=== PATIENT | female | born 1940 ===

== ENCOUNTER 2018-06-18 11:33 | Emergency (ER) | payer MEDICARE, MEDICAID ==
[2018-06-18 11:42] VITALS: RESP 16
[2018-06-18 11:43] VITALS: BMI 30.5
[2018-06-18] MEDS ORDERED: Oxycodone/Acetaminophen 5/325 mg Tab PO STA (12:13)
[2018-06-18] MEDS ORDERED: Oxycodone/Acetaminophen 5/325 mg Tab ONE (12:34)
--- NOTE | 2018-06-18 12:38 | ED PDOC ---
Lower Extremity Pain/Injury Time Seen by Provider: 06/18/18 11:57 Chief Complaint (Nursing): Lower Extremity Problem/Injury Chief Complaint (Provider): Right Leg Pain History Per: Patient History/Exam Limitations: no limitations Onset/Duration Of Symptoms: Days (x3) Current Symptoms Are (Timing): Still Present Severity: None Additional Complaint(s): 77 year old female with a past medical history of rheumatoid arthritis and hypertension presents to the emergency department complaining of right leg pain x3 days. Patient states that most of the pain is felt in the right ankle but she also notes some intermittent pain in the right calf. She also reports that the right ankle has been swollen and pain. Denies chest pain, leg/calf swelling , fever Of note: Patient states that she carries alot of heavy items and has been on her feet alot as of lately. PMD: Dr. Tavarez (Clinic ) - Risk Factors DVT Risk Factors: Pos: None Past Medical History Reviewed: Historical Data, Nursing Documentation, Vital Signs Vital Signs: Last Vital Signs Temp 97.6 F 06/18/18 11:41 Pulse 82 06/18/18 11:41 Resp 16 06/18/18 11:41 BP 172/73 H 06/18/18 11:41 Pulse Ox 98 06/18/18 11:41 - Medical History PMH: Arthritis (rheumatoid), HTN, Osteoporosis - Surgical History Surgical History: Appendectomy - Family History Family History: States: No Known Family Hx - Social History Current smoker - smoking cessation education provided: No Alcohol: None Drugs: Denies - Home Medications Home Medications: Ambulatory Orders Medication Instructions Recorded Aspirin [Ecotrin] 81 mg PO DAILY 03/19/16 Atenolol [Tenormin] 50 mg PO DAILY 03/19/16 Azathioprine [Azathioprine] 50 mg PO DAILY 03/19/16 Celecoxib [celeBREX] 200 mg PO BID 03/19/16 Cholecalciferol [Vitamin D 1000 IU] 1,000 unit PO DAILY 03/19/16 Exemestane [Aromasin] 25 mg PO DAILY 03/19/16 Folic Acid [Folic Acid] 400 mcg PO DAILY 03/19/16 Hydrochlorothiazide [HCTZ] 25 mg PO DAILY 03/19/16 Hydroxychloroquine Sulfate 200 mg PO BID 03/19/16 [Plaquenil] Ibandronate Sodium [Boniva] 150 mg PO Q30D 03/19/16 Multivitamin/Iron/Folic Acid 1 tab PO DAILY 03/19/16 [Centrum Complete Multivit Tab] - Allergies Allergies/Adverse Reactions: Allergies Allergy/AdvReac Type Severity Reaction Status Date / Time No Known Allergies Allergy Verified 03/19/16 14:31 Review of Systems ROS Statement: Except As Marked, All Systems Reviewed And Found Negative Constitutional: Negative for: Fever, Chills Cardiovascular: Negative for: Chest Pain Respiratory: Negative for: Cough Musculoskeletal: Positive for: Leg Pain (right ). Negative for: Foot Pain Physical Exam - Reviewed Nursing Documentation Reviewed: Yes Vital Signs Reviewed: Yes - Physical Exam Appears: Positive for: Non-toxic, No Acute Distress Head Exam: Positive for: ATRAUMATIC, NORMAL INSPECTION, NORMOCEPHALIC Skin: Positive for: Normal Color, Warm, Dry. Negative for: Rash Eye Exam: Positive for: Normal appearance, EOMI, PERRL ENT: Positive for: Normal ENT Inspection. Negative for: Nasal Congestion, Tonsillar Exudate, Tonsillar Swelling Neck: Positive for: Normal, Painless ROM, Supple Cardiovascular/Chest: Positive for: Regular Rate, Rhythm, Chest Non Tender. Negative for: Murmur, Tachycardia Respiratory: Positive for: Normal Breath Sounds. Negative for: Rales, Rhonchi, Wheezing, Respiratory Distress Back: Positive for: Normal Inspection. Negative for: L CVA Tenderness, R CVA Tenderness, Vertebral Tenderness Extremity: Positive for: Normal ROM (Full ROM of right ankle), Tenderness (mild tenderness to right ankle), Calf Tenderness (No swelling or tenderness to right calf), Capillary Refill (less than 2 seconds), Swelling (mild swelling round right ankle), Other (Warm skin; no redness to right ankle or right calf). Negative for: Deformity Neurologic/Psych: Positive for: Alert, Oriented, Gait - Laboratory Results Result Diagrams: 06/18/18 13:19 06/18/18 13:19 - ECG O2 Sat by Pulse Oximetry: 98 (RA) Pulse Ox Interpretation: Normal - Progress Re-evaluation Time: 14:32 Condition: Re-examined, Improved Medical Decision Making Medical Decision Makin Initial Impression 77 year old female presenting with atraumatic right ankle and right leg pain Differentials: Arthritis, Less likely ghout but still considered, r/o DVT Initial Plan: * BMP * Uric Acid * CBC * ESR * Percocet 1 tab PO * Toradol 30 mg IM * RAD right ankle * US Duplex Lower EXTRM * Reevaluation 1335 06/18/2018 PROCEDURE: Right lower extremity venous duplex Doppler. HISTORY: right lower leg pain COMPARISON: None available. TECHNIQUE: Common femoral, superficial femoral, popliteal and posterior tibial veins were evaluated. Flow was assessed with color Doppler, compressibility, assessment of phasic flow and augmentation response. FINDINGS: COMMON FEMORAL VEIN: Unremarkable. SUPERFICIAL FEMORAL VEIN: Unremarkable. POPLITEAL VEIN: Unremarkable. POSTERIOR TIBIAL VEIN: Unremarkable. OTHER FINDINGS: None. IMPRESSION: No evidence of deep venous thrombosis in the right lower extremity. Documented by Taylor Berger acting as a scribe for Lyn Grace MD. All medical record entries made by the Scribe were at my direction and personally dictated by me. I have reviewed the chart and agree that the record accurately reflects my personal performance of the history, physical exam, medical decision making, and the department course for this patient. I have also personally directed, reviewed, and agree with the discharge instructions and disposition. Disposition - Clinical Impression Clinical Impression: Ankle pain, Arthritis - Patient ED Disposition Is Patient to be Admitted: No Doctor Will See Patient In The: Office Counseled Patient/Family Regarding: Studies Performed, Diagnosis, Need For Followup - Disposition Referrals: Podiatry Clinic [Outside] Disposition: Routine/Home Disposition Time: 14:33 Condition: GOOD Additional Instructions: Take your medications as instructed. Follow up with your PCP in 2-3 days. Instructions: Arthritis and Exercise
[2018-06-18 13:23] LABS: BASO % 0.9 % (0.0-2.0); EOS % 0.6 % (0.0-4.0); HEMOGLOBIN 13.5 g/dL (12.0-16.0); LYMPH # 0.4 K/uL (1.0-4.3); MEAN CELL VOLUME 94.8 fl (81.0-99.0); MEAN CORPUSCULAR HEMOGLOBIN 31.8 pg (27.0-31.0); MEAN CORPUSCULAR HGB CONC 33.5 g/dL (33.0-37.0); MEAN PLATELET VOLUME 10.9 fl (7.2-11.7); MONO # 0.2 K/uL (0.0-0.8); MONO % 3.2 % (0.0-10.0); NEUT # 4.3 K/uL (1.8-7.0); NEUT % 86.3 % (50.0-75.0); PLATELET COUNT 103 K/uL (130-400); RBC 4.25 Mil/uL (3.80-5.20); RED CELL DISTRIBUTION WIDTH 13.4 % (11.5-14.5)
[2018-06-18 13:34] LABS: BLOOD UREA NITROGEN 13 mg/dl (7-17); CALCIUM 9.9 mg/dL (8.4-10.2); GFR AFRICAN-AMERICAN > 60; GFR NON-AFRICAN AMERICAN > 60; URIC ACID 4.7 mg/Dl (2.2-7.5)
--- NOTE | 2018-06-18 13:36 | RAD ---
Date of service: 06/18/2018 PROCEDURE: Right Ankle Radiographs. HISTORY: right ankle pain no trauma COMPARISON: None FINDINGS: BONES: Diffuse osteopenia. No acute fracture. Old healed fracture of the distal tibia. JOINTS: Severe degenerative change SOFT TISSUES: Normal. OTHER FINDINGS: Achilles enthesophyte. Inferior plantar calcaneal spur. IMPRESSION: Diffuse osteopenia. No appreciable acute fracture. Severe ankle degenerative changes.
--- NOTE | 2018-06-18 13:37 | US ---
Date of service: 06/18/2018 PROCEDURE: Right lower extremity venous duplex Doppler. HISTORY: right lower leg pain COMPARISON: None available. TECHNIQUE: Common femoral, superficial femoral, popliteal and posterior tibial veins were evaluated. Flow was assessed with color Doppler, compressibility, assessment of phasic flow and augmentation response. FINDINGS: COMMON FEMORAL VEIN: Unremarkable. SUPERFICIAL FEMORAL VEIN: Unremarkable. POPLITEAL VEIN: Unremarkable. POSTERIOR TIBIAL VEIN: Unremarkable. OTHER FINDINGS: None. IMPRESSION: No evidence of deep venous thrombosis in the right lower extremity.
[2018-06-18 14:45] VITALS: BP 150/60; PULSE 74; TEMP 98.5
[2018-06-18 14:57] VITALS: O2SAT 98
[2018-06-18 15:10] LABS: BANDS 2 % (0-2); EOSINOPHIL 1 % (0-7); LYMPHOCYTE 12 % (20-50); MONOCYTE 3 % (0-10); NEUTROPHIL 82 % (42-75); PLATELET ESTIMATE NORMAL (NORMAL); TOTAL CELLS COUNTED 100
[2018-06-18 15:11] LABS: LARGE PLATELETS PRESENT
== END 2018-06-18 14:43 | disposition home or self-care (01) ==
LOC: H.ER 11:33
DX: M19.071 Primary osteoarthritis, right ankle and foot (principal); I10 Essential (primary) hypertension
CPT/HCPCS: 73610; 80048; 84550; 85025; 85651; 93971; 96372; 99284; J1885

== ENCOUNTER 2018-12-24 13:21 | Emergency (ER) | payer MEDICARE, MEDICAID ==
[2018-12-24 13:21] VITALS: BMI 30.5
[2018-12-24 13:30] VITALS: RESP 18
[2018-12-24] MEDS ORDERED: Sodium Chloride 0.9% 1,000 ML IV ONE ×2 (14:14→16:14)
--- NOTE | 2018-12-24 14:17 | ED PDOC ---
Syncope/Near Syncope/Dizziness Time Seen by Provider: 12/24/18 14:00 Chief Complaint (Nursing): Dizziness/Lightheaded Chief Complaint (Provider): Near Syncope History Per: Patient History/Exam Limitations: no limitations Onset/Duration Of Symptoms: Hrs (two) Current Symptoms Are (Timing): Gone Now Number Of Syncopal Episodes: 1 Activity At Onset Of Symptoms: Had Just Stood up Associated Symptoms Preceding Syncopal Episode: No Predromal Symptoms (Sudden Onset), Lightheadedness, Worse With Standing Seizure Or Post-ictal Symptoms: None Possible Causative Factor(s): Lightheaded W/Standing Severity: None (Pt presents to the ED after experiencing a single near syncopal episode while in [facility] today; specifically, the patient indicates that she had just stood up and got very diaphoretic and lightheaded causing her to need to sit down. Pt does have a hx that includes a TIA several years ago as well as breast ca.) Past Medical History Vital Signs: Last Vital Signs Temp 97 F L 12/24/18 13:26 Pulse 70 12/24/18 13:26 Resp 18 12/24/18 13:26 BP 129/70 12/24/18 13:26 Pulse Ox 98 12/24/18 13:26 - Medical History PMH: Arthritis (rheumatoid), HTN, Osteoporosis, Rheumatoid Arthritis - Surgical History Surgical History: Appendectomy - Family History Family History: States: Unknown Family Hx - Home Medications Home Medications: Ambulatory Orders Medication Instructions Recorded Aspirin [Ecotrin] 81 mg PO DAILY 03/19/16 Atenolol [Tenormin] 50 mg PO DAILY 03/19/16 Azathioprine 50 mg PO DAILY 03/19/16 Celecoxib [celeBREX] 200 mg PO BID 03/19/16 Cholecalciferol [Vitamin D 1000 IU] 1,000 unit PO DAILY 03/19/16 Exemestane [Aromasin] 25 mg PO DAILY 03/19/16 Folic Acid 400 mcg PO DAILY 03/19/16 Hydrochlorothiazide [HCTZ] 25 mg PO DAILY 03/19/16 Hydroxychloroquine Sulfate 200 mg PO BID 03/19/16 [Plaquenil] Ibandronate Sodium [Boniva] 150 mg PO Q30D 03/19/16 Multivitamin/Iron/Folic Acid 1 tab PO DAILY 03/19/16 [Centrum Complete Multivit Tab] Oseltamivir Phosphate [Tamiflu] 75 mg PO BID #10 capsule 12/24/18 - Allergies Allergies/Adverse Reactions: Allergies Allergy/AdvReac Type Severity Reaction Status Date / Time No Known Allergies Allergy Verified 12/24/18 13:29 Review of Systems ROS Statement: Except As Marked, All Systems Reviewed And Found Negative Constitutional: Positive for: Sweats Neurological: Positive for: Dizziness Physical Exam - Reviewed Nursing Documentation Reviewed: Yes Vital Signs Reviewed: Yes - Physical Exam Appears: Positive for: Well, Non-toxic, No Acute Distress, Uncomfortable Head Exam: Positive for: ATRAUMATIC, NORMAL INSPECTION Skin: Positive for: Normal Color, Warm, Dry. Negative for: Diaphoresis, Pallor, Rash Eye Exam: Positive for: Normal appearance ENT: Positive for: Normal ENT Inspection Neck: Positive for: Normal, Painless ROM, Supple. Negative for: Decreased ROM Cardiovascular/Chest: Positive for: Regular Rate, Rhythm Respiratory: Positive for: Normal Breath Sounds Pulses-Carotid (L): 2+ Pulses-Carotid (R): 2+ Pulses-Radial (L): 2+ Pulses-Radial (R): 2+ - Laboratory Results Result Diagrams: 12/24/18 14:42 12/24/18 14:42 - ECG ECG: Positive for: Interpreted By Me, Viewed By Me ECG Rhythm: Positive for: Normal QRS, Normal ST Segment, Sinus Rhythm Rate: 64 O2 Sat by Pulse Oximetry: 98 Medical Decision Making Medical Decision Making: Influenza Positive All other tests benign Mildly dehydrated Disposition - Clinical Impression Clinical Impression: Influenza, Dehydration - Patient ED Disposition Is Patient to be Admitted: No Doctor Will See Patient In The: Hospital Counseled Patient/Family Regarding: Diagnosis - Disposition Referrals: [facility] [Outside] Disposition: Routine/Home Disposition Time: 18:30 Condition: STABLE Prescriptions: Oseltamivir Phosphate [Tamiflu] 75 mg PO BID #10 capsule Instructions: Dehydration, Adult (DC), Flu, Adult (DC), Flu Forms: [employer] (Finnish)
[2018-12-24 14:53] LABS: BASO % 0.5 % (0.0-2.0); EOS # 0.1 K/uL (0.0-0.7); EOS % 1.2 % (0.0-4.0); HEMOGLOBIN 13.7 g/dL (12.0-16.0); LYMPH % 10.4 % (20.0-40.0); MEAN CELL VOLUME 95.8 fl (81.0-99.0); MEAN CORPUSCULAR HEMOGLOBIN 31.2 pg (27.0-31.0); MEAN CORPUSCULAR HGB CONC 32.6 g/dL (33.0-37.0); MEAN PLATELET VOLUME 11.2 fl (7.2-11.7); MONO # 0.6 K/uL (0.0-0.8); MONO % 6.9 % (0.0-10.0); NEUT # 7.5 K/uL (1.8-7.0); NRBC % 0.1 % (0.0-0.0); RBC 4.4 Mil/uL (3.80-5.20); RED CELL DISTRIBUTION WIDTH 13.6 % (11.5-14.5); WHITE BLOOD COUNT 9.3 K/uL (4.8-10.8)
[2018-12-24 15:07] LABS: ALB/GLOB RATIO 1.2 (1.0-2.1); ALBUMIN 3.5 g/dL (3.5-5.0); ALT/SGPT 33 U/L (9-52); AST/SGOT 27 U/L (14-36); BLOOD UREA NITROGEN 20 mg/dl (7-17); CALCIUM 9.7 mg/dL (8.4-10.2); GFR NON-AFRICAN AMERICAN > 60
--- NOTE | 2018-12-24 15:17 | CT ---
Date of service: 12/24/2018 PROCEDURE: CT HEAD WITHOUT CONTRAST. HISTORY: NEAR SYNCOPE COMPARISON: None available. TECHNIQUE: Axial computed tomography images were obtained through the head/brain without intravenous contrast. Radiation dose: Total exam DLP = 836.86 mGy-cm. This CT exam was performed using one or more of the following dose reduction techniques: Automated exposure control, adjustment of the mA and/or kV according to patient size, and/or use of iterative reconstruction technique. FINDINGS: HEMORRHAGE: No intracranial hemorrhage. BRAIN: No mass effect or edema. Chronic periventricular white matter ischemic disease and atrophy. VENTRICLES: Unremarkable. No hydrocephalus. CALVARIUM: Unremarkable. PARANASAL SINUSES: Unremarkable as visualized. No significant inflammatory changes. MASTOID AIR CELLS: Unremarkable as visualized. No inflammatory changes. OTHER FINDINGS: None. IMPRESSION: No acute hemorrhage.
[2018-12-24 15:25] LABS: SQUAMOUS EPITHIAL 1 /hpf (0-5); URINE BACTERIA RARE (<OCC); URINE BILIRUBIN NEGATIVE (NEGATIVE); URINE BLOOD NEGATIVE (NEGATIVE); URINE CLARITY CLOUDY (Clear); URINE GLUCOSE (UA) NEG (NEGATIVE); URINE HYALINE CAST >20 /hpf (0-2); URINE LEUKOCYTE ESTERASE SMALL Leu/uL (Negative); URINE PROTEIN 100 mg/dL (NEGATIVE)
[2018-12-24 15:31] LABS: URINE COLOR YELLOW (YELLOW)
[2018-12-24 18:39] VITALS: BP 174/89; PULSE 73; TEMP 98; O2SAT 99
--- NOTE | 2018-12-25 16:14 | CARD ---
APPROVED REPORT Date of service: 12/24/2018 EKG Measurement Heart [id number] <Conclusion> Normal sinus rhythm Normal ECG
== END 2018-12-24 18:37 | disposition home or self-care (01) ==
LOC: H.ER 13:21
DX: E86.0 Dehydration (principal); J11.1 Influenza due to unidentified influenza virus with other respiratory manifestations; I10 Essential (primary) hypertension
CPT/HCPCS: 70450; 80053; 81003; 82948; 84484; 85025; 87804; 93005; 96360; 96361; 99285; J7030

== ENCOUNTER 2019-01-24 15:57 | Inpatient (IN) | payer MEDICARE, MEDICAID ==
--- NOTE | 2019-01-24 17:46 | RAD ---
Date of service: 01/24/2019 PROCEDURE: Radiographs of the Lumbar Spine. HISTORY: fall/back pain COMPARISON: No prior. FINDINGS: BONES: Examination grossly limited and consists of only a single AP view. No lateral view submitted. No gross evidence of fracture. No evidence of loss in height of any of the lumbar vertebrae. No lytic or blastic osseous lesion appreciated. DISC SPACES: Inadequately evaluated OTHER FINDINGS: None. IMPRESSION: Normal limited examination.
--- NOTE | 2019-01-24 17:48 | RAD ---
PROCEDURE: Left Hip X-ray Radiographs. HISTORY: fall COMPARISON: None. FINDINGS: BONES: Displaced fracture mid femoral diaphysis. Please see report of left femur. No evidence of hip fracture. No dislocation. JOINTS: Normal. SOFT TISSUES: Normal. OTHER FINDINGS: None. IMPRESSION: Fracture left femoral diaphysis. No additional fracture
--- NOTE | 2019-01-24 17:49 | RAD ---
Date of service: 01/24/2019 PROCEDURE: Left femur HISTORY: fall/thigh swelling COMPARISON: Not available TECHNIQUE: AP radiography only. FINDINGS: Limited examination demonstrates oblique displaced fracture of the left femoral diaphysis at the junction of the proximal and middle thirds, with mild overriding of the main fragments. There is no evidence of comminution. There is no additional fracture demonstrated. There is note made of adjacent soft tissue swelling which may reflect muscular hemorrhage or ele hematoma. Consider further evaluation with computed tomography. No additional abnormality identified. IMPRESSION: Displaced left femoral diaphysis fracture. Questionable hematoma adjacent to the fracture site. Consider further evaluation with computed tomography.
[2019-01-24] MEDS ORDERED: Morphine 4 MG/ML VIAL IVP STA (18:06)
--- NOTE | 2019-01-24 18:15 | ED PDOC ---
Lower Extremity Pain/Injury Time Seen by Provider: 01/24/19 16:27 Chief Complaint (Nursing): Lower Extremity Problem/Injury Chief Complaint (Provider): FALL/ LEFT LEG PAIN History Per: Patient History/Exam Limitations: no limitations Onset/Duration Of Symptoms: Mins Current Symptoms Are (Timing): Still Present Severity: Severe Pain Scale Rating Of: 9 Additional History Per: Patient Additional Complaint(s): 78 Y/O FEMALE WITH HX OF HTN, RHEUMATOID ARTHRITIS AND LUPUS BROUGHT IN BY EMS ON STRETCHER AFTER PT HAD A SLIP AND FALL TRYING TO GET OUT OF THE BATH TUB. PT REPORTS SHE IS NOT SURE OF HOW SHE LANDED BUT REPORTS SHE ATTEMPTED TO GET UP ON HER OWN AND FELL AGAIN. PT DENIES HITTING HER HEAD. DENIES FEELING DIZZY PRIOR TO FALL AND DENIES LOC. DENIES HEAD INJURY. PT STATES SHE IS UNABLE TO APPLY WEIGHT TO LEFT LEG. PT DENIES FURTHER INJURIES OR PAIN. - Hip Description Of Injury: Fell Currently Unable To: Bear Weight - Risk Factors DVT Risk Factors: Pos: Extremity Fractured Past Medical History Vital Signs: Last Vital Signs Temp 99.1 F 01/24/19 16:00 Pulse 79 01/24/19 16:00 Resp 18 01/24/19 16:00 BP 181/77 H 01/24/19 16:00 Pulse Ox 98 01/24/19 16:00 - Medical History PMH: Arthritis (rheumatoid), HTN, Osteoporosis, Rheumatoid Arthritis - Surgical History Surgical History: Appendectomy - Family History Family History: States: Unknown Family Hx - Social History Alcohol: None Drugs: Denies - Home Medications Home Medications: Ambulatory Orders Medication Instructions Recorded Aspirin [Ecotrin] 81 mg PO DAILY 03/19/16 Atenolol [Tenormin] 50 mg PO DAILY 03/19/16 Celecoxib [celeBREX] 200 mg PO BID 03/19/16 Multivitamin/Iron/Folic Acid 1 tab PO DAILY 03/19/16 [Centrum Complete Multivit Tab] Acetaminophen with Codeine 2 tab PO Q12 PRN 01/24/19 [Tylenol with Codeine #3 Tablet] Atorvastatin [Lipitor] 10 mg PO DAILY 01/24/19 Calcium Carbonate [Caltrate] 1 tab PO DAILY 01/24/19 DULoxetine [Cymbalta] 30 mg PO Q12 PRN 01/24/19 Turmeric Root Extract [Turmeric] 500 mg PO DAILY 01/24/19 hydroCHLOROthiazide [Microzide] 12.5 mg PO DAILY 01/24/19 predniSONE [predniSONE Tab] 7.5 mg PO DAILY 01/24/19 - Allergies Allergies/Adverse Reactions: Allergies Allergy/AdvReac Type Severity Reaction Status Date / Time No Known Allergies Allergy Verified 12/24/18 13:29 Wells Criteria for PE - Wells Criteria for Pulmonary Embolism Clinical Signs and Symptoms of DVT: No P.E is #1 Diagnosis, or Equally Likely: No Heart Rate >100: No Immobilization at least 3 days;Surgery previous 4 weeks: No Previous, objectively diagnosed PE or DVT: No Hemoptysis: No Malignancy w/treatment within 6 months, or palliative: No Total Score: 0 Review of Systems Constitutional: Negative for: Fever, Sweats, Weakness, Malaise Cardiovascular: Negative for: Chest Pain, Palpitations Respiratory: Negative for: Shortness of Breath Musculoskeletal: Positive for: Leg Pain (LEFT THIGH PAIN ) Physical Exam - Reviewed Nursing Documentation Reviewed: Yes Vital Signs Reviewed: Yes - Physical Exam Appears: Positive for: Well, Non-toxic, No Acute Distress Head Exam: Positive for: ATRAUMATIC, NORMAL INSPECTION, NORMOCEPHALIC Skin: Positive for: Normal Color, Warm, DRY Eye Exam: Positive for: Normal appearance, PERRL ENT: Positive for: Normal ENT Inspection Neck: Positive for: Normal, Painless ROM Cardiovascular/Chest: Positive for: Regular Rate, Rhythm Respiratory: Positive for: CNT, Normal Breath Sounds Pulses-Dorsalis Pedis (L): 2+ Pulses-Dorsalis Pedis (R): 2+ Pulses-Radial (L): 2+ Pulses-Radial (R): 2+ Gastrointestinal/Abdominal: Positive for: Normal Exam, Soft Back: Positive for: Normal Inspection Extremity: Positive for: Normal ROM, Swelling (LEFT THIGH SWELLING, LEFT EXTERNAL ROTATION OF THE FOOT, POSS SHORTENING. COLOR WNL, TEMP OF LEFT LEG COOL SAME RIGHT. 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 GRACE, REVIEWED AND SIGNED. Rate: 79 O2 Sat by Pulse Oximetry: 98 Pulse Ox Interpretation: Normal - Radiology X-Ray: Read By Radiologist (LEFT DISPLACED FEMUR FX TO THE DIAPHYSIS. ) - Progress ED Course And Treament: CBC CMP TYPE AND SCREEN PT/INR/PTT SALINE LOCK XRAYS: LEFT FEMUR, LEFT HIP, LUMBAR SPINE, CHEST PORTABLE CT L LOWER EXT, LUMBAR SPINE TORADOL 60MG IM MORPHINE 4MG IV 1800: PT RE-EVALED AT THIS TIME, ADVISED OF XRAY RESULTS, FAMILY AT BEDSIDE. 1809: SPOKE TO DR. GARCIA TO NOTIFY OF ADMISSION TO MED/SURG, TO CALL [facility] ONCALL, FOR CONSULT 1814: DR. LIRA CALLED ON CONSULT FOR LEFT DISPLACED FEMUR FX, MD AWARE. Re-evaluation Time: 18:00 Condition: Re-examined Disposition - Clinical Impression Clinical Impression: Femur fracture Discussed With : Lyn Grace - Disposition Disposition Time: 18:00 Condition: FAIR - Pt Status Changed To: Hospital Disposition Of: Inpatient - Admit Certification Admit to Inpatient:: After my assessment, the patient will require hospitalization for at least two midnights. This is because of the severity of symptoms shown, intensity of services needed, and/or the medical risk in this patient being treated as an outpatient. - POA Present On Arrival: Falls Or Trauma (fall, left femur fx)
[2019-01-24 18:16] LABS: BASO # 0.1 K/uL (0.0-0.2); BASO % 0.5 % (0.0-2.0); EOS % 0.1 % (0.0-4.0); LYMPH # 1.5 K/uL (1.0-4.3); LYMPH % 11.8 % (20.0-40.0); MEAN CELL VOLUME 94.9 fl (81.0-99.0); MEAN CORPUSCULAR HEMOGLOBIN 30.9 pg (27.0-31.0); MEAN CORPUSCULAR HGB CONC 32.6 g/dL (33.0-37.0); MEAN PLATELET VOLUME 10.7 fl (7.2-11.7); MONO # 0.9 K/uL (0.0-0.8); MONO % 7.2 % (0.0-10.0); NEUT % 80.4 % (50.0-75.0); RBC 4.21 Mil/uL (3.80-5.20); RED CELL DISTRIBUTION WIDTH 13.2 % (11.5-14.5); WHITE BLOOD COUNT 12.4 K/uL (4.8-10.8)
[2019-01-24] MEDS ORDERED: Morphine 4 MG/ML VIAL ONE (18:23)
[2019-01-24 18:31] LABS: ALB/GLOB RATIO 1.3 (1.0-2.1); ALBUMIN 3.7 g/dL (3.5-5.0); ALT/SGPT 36 U/L (9-52); AST/SGOT 33 U/L (14-36); BLOOD UREA NITROGEN 33 mg/dl (7-17); CALCIUM 10.1 mg/dL (8.4-10.2); GFR NON-AFRICAN AMERICAN > 60
[2019-01-24 18:33] LABS: PROTHROMBIN TIME 11.5 Seconds (9.8-13.1)
[2019-01-24 18:41] LABS: PARTIAL THROMBOPLASTIN TIME 29.3 Seconds (25.6-37.1)
[2019-01-24] MEDS ORDERED: Acetaminophen-Codeine 300/30 mg Tab PO PRN (20:11)
--- NOTE | 2019-01-24 20:21 | CP.PCM.HP ---
History of Present Illness - History of Present Illness History of Present Illness: 78 y/o F with a PMHx HTN, HLD, ?SLE, seizures, R breast cancer and osteoporosis presented to ED after a falling in the shower, Pt explains slipping on wet floor after taking a shower, fell and landing with left leg in the bath tub and the right outside. Pt complains of left leg pain, dull, constant and aggravated with movement. Pt denies LOC, nausea, vomiting, visual disturbances, seizure-like episode, head trauma, chest pain, SOB, palpitations. 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 PMD: Dr George Tavarez -NKDA -Meds: Atenolol 50mg daily, HCTZ 12.5mg daily, Celebrex 200mg tab BID, Tylenol #3 2tabs PO BID, Aspirin 81mg PO daily, Lipitor 10mg PO daily, Duloxetine 30mg PO BID PRN, Oscal 500mg PO daily, -PMHx: HTN, HLD, Lupus, Osteoporosis, Hx of R Breast Ca, hx of seizures -PSH: Cholecystectomy, Right lumpectomy -SHx: denies tobacco, alcohol or rec drugs. ED Course: --XR L femur: Displaced left femoral diaphysis fracture. Questionable hematoma adjacent to the fracture site. --CT of LLE: displaced and angulated fracture involving the proximal mid L femur, soft tissue hematoma suspected. --XR and CT of lumbar spine: no fracture, see full report. --IV Toradol and IV Morphine administered. Present on Admission - Present on Admission Any Indicators Present on Admission: No Review of Systems - Constitutional Constitutional: absent: Chills, Fever - EENT Nose/Mouth/Throat: absent: Nasal Congestion, Nasal Discharge, Nose Pain, Facial Pain - Cardiovascular Cardiovascular: absent: Chest Pain, Dyspnea, Palpitations - Respiratory Respiratory: absent: Cough, Dyspnea, Hemoptysis, Wheezing - Gastrointestinal Gastrointestinal: absent: Abdominal Pain, Hematemesis, Nausea, Vomiting - Genitourinary Genitourinary: absent: Dysuria, Flank Pain, Nocturia, Urinary Frequency - Musculoskeletal Musculoskeletal: absent: Atrophy, Neck Pain, Stiffness, Tingling Past Patient History - Past Social History Alcohol: None Drugs: Denies - CARDIAC Hx Hypertension: Yes - HEENT Hx Cataracts: Yes - ENDOCRINE/METABOLIC Hx Endocrine Disorders: Yes (Lupus) - MUSCULOSKELETAL/RHEUMATOLOGICAL Hx Arthritis: Yes (rheumatoid) Hx Osteoporosis: Yes Hx Rheumatoid Arthritis: Yes - PSYCHIATRIC Hx Substance Use: No - SURGICAL HISTORY Hx Appendectomy: Yes - ANESTHESIA Hx Anesthesia: Yes Hx Anesthesia Reactions: No Meds Allergies/Adverse Reactions: Allergies Allergy/AdvReac Type Severity Reaction Status Date / Time No Known Allergies Allergy Verified 12/24/18 13:29 Physical Exam - Constitutional Appears: No Acute Distress - Head Exam Head Exam: ATRAUMATIC, NORMAL INSPECTION - Eye Exam Eye Exam: EOMI - ENT Exam ENT Exam: Mucous Membranes Moist - Neck Exam Neck exam: Positive for: Full Rom, Normal Inspection. Negative for: Lymphadenopathy, Tenderness - Respiratory Exam Respiratory Exam: NORMAL BREATHING PATTERN. absent: Rales, Rhonchi, Wheezes, Respiratory Distress - Cardiovascular Exam Cardiovascular Exam: REGULAR RHYTHM, +S1, +S2 - GI/Abdominal Exam GI & Abdominal Exam: Normal Bowel Sounds, Soft. absent: Distended, Guarding, Tenderness - Extremities Exam Extremities exam: Positive for: pedal pulses present. Negative for: calf tenderness Additional comments: Left lower extremity: lateral rotated and extended, tenderness on thigh, no calf tenderness, temperature is similar to RLE, SILT. Popliteal, PT and DP pulses present. Reduced ROM due to pain. - Neurological Exam Neurological exam: Alert, Oriented x3 Results - Vital Signs Recent Vital Signs: Last Vital Signs Temp 99.1 F 01/24/19 16:00 Pulse 79 01/24/19 18:42 Resp 18 01/24/19 16:00 BP 181/77 H 01/24/19 16:00 Pulse Ox 98 01/24/19 18:42 - Labs Result Diagrams: 01/24/19 18:00 01/24/19 18:00 Labs: Laboratory Results - last 24 hr 01/24/19 01/24/19 01/24/19 18:00 18:00 18:00 WBC 12.4 H RBC 4.21 Hgb 13.0 Hct 40.0 MCV 94.9 MCH 30.9 MCHC 32.6 L RDW 13.2 Plt Count 126 L MPV 10.7 Neut % (Auto) 80.4 H Lymph % (Auto) 11.[address] [place] % (Auto) 7.2 Eos % (Auto) 0.1 Baso % (Auto) 0.5 Neut # (Auto) 10.0 H Lymph # (Auto) 1.5 [place] # (Auto) 0.9 H Eos # (Auto) 0.0 Baso # (Auto) 0.1 PT 11.5 INR 1.0 APTT 29.3 Sodium 137 Potassium 4.7 Chloride 105 Carbon Dioxide 26 Anion Gap 11 BUN 33 H Creatinine 0.9 Est GFR ( Amer) > 60 Est GFR (Non-Af Amer) > 60 Random Glucose 131 H Calcium 10.1 Total Bilirubin 0.4 AST 33 ALT 36 Alkaline Phosphatase 78 Total Protein 6.5 Albumin 3.7 Globulin 2.9 Albumin/Globulin Ratio 1.3 Blood Type Antibody Screen BBK History Checked 01/24/19 18:00 WBC RBC Hgb Hct MCV MCH MCHC RDW Plt Count MPV Neut % (Auto) Lymph % (Auto) [place] % (Auto) Eos % (Auto) Baso % (Auto) Neut # (Auto) Lymph # (Auto) [place] # (Auto) Eos # (Auto) Baso # (Auto) PT INR APTT Sodium Potassium Chloride Carbon Dioxide Anion Gap BUN Creatinine Est GFR ( Amer) Est GFR (Non-Af Amer) Random Glucose Calcium Total Bilirubin AST ALT Alkaline Phosphatase Total Protein Albumin Globulin Albumin/Globulin Ratio Blood Type AB POSITIVE Antibody Screen Negative BBK History Checked Patient has bt Assessment & Plan - Assessment and Plan (Free Text) Assessment: 78 y/o F with a PMHx of HTN, HLD, ?SLE, seizures, R breast cancer and osteoporosis is admitted for evaluation and management of Left femur displaced fracture. --XR L femur: Displaced left femoral diaphysis fracture. Questionable hematoma adjacent to the fracture site. --CT of LLE: displaced and angulated fracture involving the proximal mid L femur, soft tissue hematoma suspected. PLAN: >Displaced Fracture of Left Femur --S/P mechanical fall --Pain management: toradol for mild and moderate, Morphine for severe. --Orthopedic Surgery consult, Dr Alvarez. --NPO after midnight for possible surgical procedure. --EKG, CXR, blood analysis were ordered. --F/U orthopedic team recommendation. >?SLE/?RA --Chronic --Home meds resumed >HTN --Chronic --Home meds resumed >HLD --Chronic --Home meds resumed >Hx of Seizure --Last episode 2 years ago. --Not on chronic medication anymore. >DVT Prophylaxis --Hold anticoagulation for now since possible surgery tomorrow. --SCD for R lower leg only Case discussed with Ya Palomino PGY-2 - Date & Time Date: 01/24/19 Time: 20:00
[2019-01-24] MEDS ORDERED: Potassium Ch 20mEq in D5-1/2NS 1,000 ML IV SCH (20:30)
[2019-01-25] MEDS: Lactated Ringer's 1,000 ML IV SCH ×3 (01:00→21:00)
[2019-01-25 06:28] LABS: HEMOGLOBIN 11.1 g/dL (12.0-16.0); MEAN CELL VOLUME 95.3 fl (81.0-99.0); MEAN CORPUSCULAR HEMOGLOBIN 31.5 pg (27.0-31.0); MEAN CORPUSCULAR HGB CONC 33.1 g/dL (33.0-37.0); RBC 3.53 Mil/uL (3.80-5.20); RED CELL DISTRIBUTION WIDTH 13.4 % (11.5-14.5); WHITE BLOOD COUNT 9.4 K/uL (4.8-10.8)
[2019-01-25 06:50] LABS: BLOOD UREA NITROGEN 32 mg/dl (7-17); CALCIUM 9.3 mg/dL (8.4-10.2); GFR NON-AFRICAN AMERICAN > 60
--- NOTE | 2019-01-25 08:25 | CP.PCM.CON ---
History of Present Illness - History of Present Illness History of Present Illness: Orthopedic consult: Dr. Alvarez Patient is a 78 y/o female who c/o L thigh pain following an injury last yesterday. She reports slipping and fall while getting out of her bathtub and landing with her sitting onto her left leg twisted under her. She was unable to get up and stand due to severe L thigh pain and instability. She denies any LOC/dizziness/other injuries. She was found to have L femur fx in [facility] ER and Dr. Alvarez was consulted. Currently her pain is dull, intermittent and diffuse about her L thigh. The pain is worse with movement and alleviated with inactivity. She denies any radiation of pain/numbness/tingling. She denies CP/SOB/N/V/D/fever/dysuria/melena. Her last dose of ASA 81mg was yesterday. PMH: HTN, SLE, RA PSH: R breast lumpectomy, cholecystectomy meds: as per med rec Allergy: lactose intolerance SH: denies tobacco/ETOH/drug use, lives at home with son Review of Systems - Review of Systems All systems: reviewed and no additional remarkable complaints except Review of Systems: as per HPI Past Patient History - Past Medical History & Family History Past Family History: Reviewed and not pertinent - Past Social History Smoking Status: Former Smoker - CARDIAC Hx Cardiac Disorders: Yes Hx Hypertension: Yes - PULMONARY Hx Respiratory Disorders: No - NEUROLOGICAL Hx Neurological Disorder: No - HEENT Hx HEENT Problems: Yes Hx Cataracts: Yes - RENAL Hx Chronic Kidney Disease: No - ENDOCRINE/METABOLIC Hx Endocrine Disorders: Yes (Lupus) - HEMATOLOGICAL/ONCOLOGICAL Hx Blood Disorders: No - INTEGUMENTARY Hx Dermatological Problems: No - MUSCULOSKELETAL/RHEUMATOLOGICAL Hx Musculoskeletal Disorders: Yes Hx Falls: Yes Hx Osteoporosis: Yes Hx Rheumatoid Arthritis: Yes - GASTROINTESTINAL Hx Gastrointestinal Disorders: No - GENITOURINARY/GYNECOLOGICAL Hx Genitourinary Disorders: Yes Other/Comment: bladder surgery - PSYCHIATRIC Hx Psychophysiologic Disorder: No Hx Substance Use: No - SURGICAL HISTORY Hx Surgeries: Yes Hx Appendectomy: Yes Other/Comment: right brest lumpectomy - ANESTHESIA Hx Anesthesia: Yes Hx Anesthesia Reactions: No Hx Malignant Hyperthermia: No Meds Allergies/Adverse Reactions: Allergies Allergy/AdvReac Type Severity Reaction Status Date / Time milk AdvReac DIARRHEA Verified 01/25/19 00:39 - Medications Medications: Current Medications Acetaminophen/Codeine Phosphate (Tylenol/Codeine 300 Mg/30 Mg) 2 tab PO Q12 PRN PRN Reason: Pain, severe (8-10) Aspirin (Ecotrin) 81 mg PO DAILY [facility] Atenolol (Tenormin) 50 mg PO DAILY [facility] Atorvastatin Calcium (Lipitor) 10 mg PO DAILY [facility] Calcium Carbonate (Oscal) 500 mg PO DAILY [facility] Celecoxib (Celebrex) 200 mg PO BID [facility] Duloxetine HCl (Cymbalta) 30 mg PO Q12 PRN PRN Reason: Anxiety Hydrochlorothiazide (Microzide) 12.5 mg PO DAILY [facility] Lactated Ringer's (Lactated Ringer's) 1,000 mls @ 140 mls/hr IV .Q7H9M [facility] Last Admin: 01/25/19 01:00 Dose: 140 mls/hr Ketorolac Tromethamine (Toradol) 30 mg IVP Q6 PRN PRN Reason: Pain, moderate (4-7) Ketorolac Tromethamine (Toradol) 15 mg IVP Q6 PRN PRN Reason: Pain, Mild (1-3) Morphine Sulfate (Morphine) 2 mg IVP Q4 PRN PRN Reason: Pain, severe (8-10) Multivitamins/Minerals (Therapeutic-M Tab) 1 tab PO DAILY [facility] Physical Exam - Constitutional Appears: Well, No Acute Distress - Head Exam Head Exam: ATRAUMATIC, NORMOCEPHALIC - Eye Exam Eye Exam: EOMI, Normal appearance - ENT Exam ENT Exam: Mucous Membranes Moist - Respiratory Exam Respiratory Exam: NORMAL BREATHING PATTERN - Extremities Exam Additional comments: LLE: moderate thigh swelling, diffuse thigh tenderness mid shaft no lesions/ecchymosis/masses externally rotated and shortened limb sensation intact SP/DP/TN motor intact EHL/FHL/TA/G pedal pulse intact calves soft NT b/l - Neurological Exam Neurological exam: Alert, Oriented x3 Results - Vital Signs Recent Vital Signs: Last Vital Signs Temp 97.5 F L 01/25/19 07:51 Pulse 66 01/25/19 07:51 Resp 19 01/25/19 07:51 BP 170/80 H 01/25/19 07:51 Pulse Ox 98 01/25/19 07:51 - Labs Result Diagrams: 01/25/19 05:20 01/25/19 05:20 Labs: Laboratory Results - last 24 hr 01/24/19 01/24/19 01/24/19 18:00 18:00 18:00 WBC 12.4 H RBC 4.21 Hgb 13.0 Hct 40.0 MCV 94.9 MCH 30.9 MCHC 32.6 L RDW 13.2 Plt Count 126 L MPV 10.7 Neut % (Auto) 80.4 H Lymph % (Auto) 11.8 L [place] % (Auto) 7.2 Eos % (Auto) 0.1 Baso % (Auto) 0.5 Neut # (Auto) 10.0 H Lymph # (Auto) 1.5 [place] # (Auto) 0.9 H Eos # (Auto) 0.0 Baso # (Auto) 0.1 PT 11.5 INR 1.0 APTT 29.3 Sodium 137 Potassium 4.7 Chloride 105 Carbon Dioxide 26 Anion Gap 11 BUN 33 H Creatinine 0.9 Est GFR ( Amer) > 60 Est GFR (Non-Af Amer) > 60 Random Glucose 131 H Calcium 10.1 Total Bilirubin 0.4 AST 33 ALT 36 Alkaline Phosphatase 78 Total Protein 6.5 Albumin 3.7 Globulin 2.9 Albumin/Globulin Ratio 1.3 Blood Type Antibody Screen BBK History Checked 01/24/19 01/25/19 01/25/19 18:00 05:20 05:20 WBC 9.4 RBC 3.53 L Hgb 11.1 L Hct 33.6 L MCV 95.3 MCH 31.5 H MCHC 33.1 RDW 13.4 Plt Count 105 L D MPV Neut % (Auto) Lymph % (Auto) [place] % (Auto) Eos % (Auto) Baso % (Auto) Neut # (Auto) Lymph # (Auto) [place] # (Auto) Eos # (Auto) Baso # (Auto) PT INR APTT Sodium 141 Potassium 4.9 Chloride 108 H Carbon Dioxide 28 Anion Gap 10 BUN 32 H Creatinine 0.8 Est GFR ( Amer) > 60 Est GFR (Non-Af Amer) > 60 Random Glucose 72 Calcium 9.3 Total Bilirubin AST ALT Alkaline Phosphatase Total Protein Albumin Globulin Albumin/Globulin Ratio Blood Type AB POSITIVE Antibody Screen Negative BBK History Checked Patient has bt - Impressions Impression: Accession No. : [id number] Patient Name / ID : GOLD HINES / [id number] Exam Date : 01/24/2019 16:54:59 ( Approved ) Study Comment : Sex / Age : F / 78Y Creator : Amaury Lopez MD Dictator : Amaury Lopez MD Pearl Maker : Grain Merchandising Manager : Amaury Lopez MD Approver2 : Report Date : 01/24/2019 17:46:22 My Comment : Date of service: 01/24/2019 PROCEDURE: Left femur HISTORY: fall/thigh swelling COMPARISON: Not available TECHNIQUE: AP radiography only. FINDINGS: Limited examination demonstrates oblique displaced fracture of the left femoral diaphysis at the junction of the proximal and middle thirds, with mild overriding of the main fragments. There is no evidence of comminution. There is no additional fracture demonstrated. There is note made of adjacent soft tissue swelling which may reflect muscular hemorrhage or ele hematoma. Consider further evaluation with computed tomography. No additional abnormality identified. IMPRESSION: Displaced left femoral diaphysis fracture. Questionable hematoma adjacent to the fracture site. Consider further evaluation with computed tomography. Accession No. : [id number] Patient Name / ID : GOLD ONIDIA / [id number] Exam Date : 01/24/2019 18:47:07 ( Approved ) Study Comment : Sex / Age : F / 78Y Creator : José Manuel Beltre MD Dictator : José Manuel Beltre MD Pearl Maker : Grain Merchandising Manager : José Manuel Beltre MD Approver2 : Report Date : 01/25/2019 12:08:07 My Comment : Date of service: 01/24/2019 PROCEDURE: HISTORY: FEMUR FX COMPARISON: TECHNIQUE: FINDINGS: Displaced and angulated fracture of the proximal mid left femur with overriding of the fracture fragments. Associated soft tissue hematoma suspected. The hip and knee joints appear intact. IMPRESSION: As above. Assessment & Plan (1) Left femoral shaft fracture Assessment and Plan: Dr. Alvarez recommends surgical fixation with intermedullary nail Risks/benefits/alternatives explained to patient who understands and agrees to proceed with above NPO Medical/cardiac clearance bedrest insert prasad T&C above d/w Dr. Alvarez in agreement Status: Acute
[2019-01-25 08:34] LABS: SQUAMOUS EPITHIAL < 1 /hpf (0-5); URINE BILIRUBIN NEGATIVE (NEGATIVE); URINE BLOOD NEGATIVE (NEGATIVE); URINE CLARITY CLEAR (Clear); URINE COLOR YELLOW (YELLOW); URINE GLUCOSE (UA) NEG (NEGATIVE); URINE LEUKOCYTE ESTERASE NEG Leu/uL (Negative); URINE PROTEIN NEGATIVE (NEGATIVE); URINE UROBILINOGEN 0.2-1.0 mg/dL (0.2-1.0)
[2019-01-25] MEDS: Multivitamin With Minerals Tab PO SCH (08:57)
--- NOTE | 2019-01-25 09:24 | CP.PCM.PN ---
Subjective - Date & Time of Evaluation Date of Evaluation: 01/25/19 Time of Evaluation: 09:24 - Subjective Subjective: Patient seen and examined at bedside today, resting comfortably on bed, mild leg pain but well controlled with meds. No acute overnight events, denies CP, sob, abd pain. Objective - Vital Signs/Intake and Output Vital Signs (last 24 hours): Temp Pulse Resp BP Pulse Ox 97.5 F L 66 19 170/80 H 98 01/25/19 07:51 01/25/19 08:58 01/25/19 07:51 01/25/19 08:58 01/25/19 07:51 - Medications Medications: Current Medications Acetaminophen/Codeine Phosphate (Tylenol/Codeine 300 Mg/30 Mg) 2 tab PO Q12 PRN PRN Reason: Pain, severe (8-10) Aspirin (Ecotrin) 81 mg PO DAILY [facility] Atenolol (Tenormin) 50 mg PO DAILY [facility] Last Admin: 01/25/19 08:58 Dose: 50 mg Atorvastatin Calcium (Lipitor) 10 mg PO DAILY [facility] Last Admin: 01/25/19 08:57 Dose: Not Given Calcium Carbonate (Oscal) 500 mg PO DAILY [facility] Last Admin: 01/25/19 08:57 Dose: Not Given Celecoxib (Celebrex) 200 mg PO BID [facility] Last Admin: 01/25/19 08:57 Dose: Not Given Duloxetine HCl (Cymbalta) 30 mg PO Q12 PRN PRN Reason: Anxiety Hydrochlorothiazide (Microzide) 12.5 mg PO DAILY [facility] Last Admin: 01/25/19 08:57 Dose: Not Given Lactated Ringer's (Lactated Ringer's) 1,000 mls @ 140 mls/hr IV .Q7H9M [facility] Last Admin: 01/25/19 01:00 Dose: 140 mls/hr Ketorolac Tromethamine (Toradol) 30 mg IVP Q6 PRN PRN Reason: Pain, moderate (4-7) Ketorolac Tromethamine (Toradol) 15 mg IVP Q6 PRN PRN Reason: Pain, Mild (1-3) Morphine Sulfate (Morphine) 2 mg IVP Q4 PRN PRN Reason: Pain, severe (8-10) Multivitamins/Minerals (Therapeutic-M Tab) 1 tab PO DAILY [facility] Last Admin: 01/25/19 08:57 Dose: Not Given - Labs Labs: 01/25/19 05:20 01/25/19 05:20 PT 11.5 Seconds (9.8-13.1) 01/24/19 18:00 INR 1.0 01/24/19 18:00 APTT 29.3 Seconds (25.6-37.1) 01/24/19 18:00 - Constitutional Appears: No Acute Distress - Head Exam Head Exam: NORMAL INSPECTION - Respiratory Exam Respiratory Exam: Clear to Ausculation Bilateral, NORMAL BREATHING PATTERN - Cardiovascular Exam Cardiovascular Exam: REGULAR RHYTHM, +S1, +S2, Murmur - GI/Abdominal Exam GI & Abdominal Exam: Soft, Normal Bowel Sounds. absent: Distended, Tenderness - Extremities Exam Additional comments: LLE: lateral rotated and extended, tenderness on thigh, no calf tenderness, warm. Popliteal, PT and DP pulses present. Reduced ROM due to pain. - Neurological Exam Neurological Exam: Awake, CN II-XII Intact, Oriented x3 - Skin Skin Exam: Dry, Normal Color, Warm Assessment and Plan - Assessment and Plan (Free Text) Assessment: 78 y/o F with a PMHx of HTN, HLD, ?SLE, seizures, R breast cancer and osteoporosis is admitted for evaluation and management of Left femur displaced fracture. XR L femur: Displaced left femoral diaphysis fracture. Questionable hematoma adjacent to the fracture site. CT of LLE: displaced and angulated fracture involving the proximal mid L femur, soft tissue hematoma suspected. PLAN: Displaced Fracture of Left Femur - S/P mechanical fall - Pain management: toradol for mild and moderate, Morphine for severe. - Orthopedic Surgery consult, Dr Alvarez. - NPO since midnight for possible surgical procedure today - EKG: NSR - CXR negative for acute lung disease - Cleared for surgery ?SLE/?RA - Chronic - Home meds resumed HTN - Chronic - Home meds resumed - Cardiology consult, clearance HLD - Chronic - Home meds resumed Hx of Seizure - Last episode 2 years ago. -Not on chronic medication anymore. DVT Prophylaxis - Hold anticoagulation for now since possible surgery - SCD for R lower leg only Case discussed with Dr Tavarez. Tawana PGY 2
--- NOTE | 2019-01-25 10:07 | CP.PCM.CON ---
History of Present Illness - History of Present Illness History of Present Illness: THE PATIENT IS A 78 YEAR OLD FEMALE WHO HAS A HISTORY OF HYPERTENSION AND HYPERLIPIDEMIA. SHE FELL IN THE SHOWER YESTERDAY AND SUSTAINED A LEFT FEMORAL FRACTURE AND WILL HAVE SURGERY AND I WAS ASKED TO SEE HER. SHE IS KNOWN TO ME FROM MY OFFICE PRACTICE. SHE DENIES CHEST PAIN, PALPITATIONS OR LOC CLAIMING THAT SHE JUST SLIPPED AND FELL. Past Patient History - Past Social History Smoking Status: Former Smoker - CARDIAC Hx Cardiac Disorders: Yes Hx Hypertension: Yes - PULMONARY Hx Respiratory Disorders: No - NEUROLOGICAL Hx Neurological Disorder: No - HEENT Hx HEENT Problems: Yes Hx Cataracts: Yes - RENAL Hx Chronic Kidney Disease: No - ENDOCRINE/METABOLIC Hx Endocrine Disorders: Yes (Lupus) - HEMATOLOGICAL/ONCOLOGICAL Hx Blood Disorders: No - INTEGUMENTARY Hx Dermatological Problems: No - MUSCULOSKELETAL/RHEUMATOLOGICAL Hx Musculoskeletal Disorders: Yes Hx Falls: Yes Hx Osteoporosis: Yes Hx Rheumatoid Arthritis: Yes - GASTROINTESTINAL Hx Gastrointestinal Disorders: No - GENITOURINARY/GYNECOLOGICAL Hx Genitourinary Disorders: Yes Other/Comment: bladder surgery - PSYCHIATRIC Hx Psychophysiologic Disorder: No Hx Substance Use: No - SURGICAL HISTORY Hx Surgeries: Yes Hx Appendectomy: Yes Other/Comment: right brest lumpectomy - ANESTHESIA Hx Anesthesia: Yes Hx Anesthesia Reactions: No Hx Malignant Hyperthermia: No Meds Allergies/Adverse Reactions: Allergies Allergy/AdvReac Type Severity Reaction Status Date / Time milk AdvReac DIARRHEA Verified 01/25/19 00:39 - Medications Medications: Current Medications Acetaminophen/Codeine Phosphate (Tylenol/Codeine 300 Mg/30 Mg) 2 tab PO Q12 PRN PRN Reason: Pain, severe (8-10) Aspirin (Ecotrin) 81 mg PO DAILY ON LICENSE OF [facility] Atenolol (Tenormin) 50 mg PO DAILY ON LICENSE OF [facility] Last Admin: 01/25/19 08:58 Dose: 50 mg Atorvastatin Calcium (Lipitor) 10 mg PO DAILY ON LICENSE OF [facility] Last Admin: 01/25/19 08:57 Dose: Not Given Calcium Carbonate (Oscal) 500 mg PO DAILY ON LICENSE OF [facility] Last Admin: 01/25/19 08:57 Dose: Not Given Celecoxib (Celebrex) 200 mg PO BID ON LICENSE OF [facility] Last Admin: 01/25/19 08:57 Dose: Not Given Duloxetine HCl (Cymbalta) 30 mg PO Q12 PRN PRN Reason: Anxiety Hydrochlorothiazide (Microzide) 12.5 mg PO DAILY ON LICENSE OF [facility] Last Admin: 01/25/19 08:57 Dose: Not Given Lactated Ringer's (Lactated Ringer's) 1,000 mls @ 140 mls/hr IV .Q7H9M ON LICENSE OF [facility] Last Admin: 01/25/19 01:00 Dose: 140 mls/hr Ketorolac Tromethamine (Toradol) 30 mg IVP Q6 PRN PRN Reason: Pain, moderate (4-7) Ketorolac Tromethamine (Toradol) 15 mg IVP Q6 PRN PRN Reason: Pain, Mild (1-3) Morphine Sulfate (Morphine) 2 mg IVP Q4 PRN PRN Reason: Pain, severe (8-10) Last Admin: 01/25/19 09:43 Dose: 2 mg Multivitamins/Minerals (Therapeutic-M Tab) 1 tab PO DAILY ON LICENSE OF [facility] Last Admin: 01/25/19 08:57 Dose: Not Given Physical Exam - Respiratory Exam Respiratory Exam: Clear to Auscultation Bilateral - Cardiovascular Exam Cardiovascular Exam: REGULAR RHYTHM, +S1, +S2, Systolic Murmur - Additional Findings Additional findings: EKG NSR LABS NOTED K+ 4.9 H/H INR 1.0 Results - Vital Signs Recent Vital Signs: Last Vital Signs Temp 97.5 F L 01/25/19 07:51 Pulse 66 01/25/19 08:58 Resp 19 01/25/19 07:51 BP 170/80 H 01/25/19 08:58 Pulse Ox 98 01/25/19 07:51 - Labs Result Diagrams: 01/28/19 04:25 01/28/19 04:25 Labs: Laboratory Results - last 24 hr 01/24/19 01/24/19 01/24/19 18:00 18:00 18:00 WBC 12.4 H RBC 4.21 Hgb 13.0 Hct 40.0 MCV 94.9 MCH 30.9 MCHC 32.6 L RDW 13.2 Plt Count 126 L MPV 10.7 Neut % (Auto) 80.4 H Lymph % (Auto) 11.8 L Dade % (Auto) 7.2 Eos % (Auto) 0.1 Baso % (Auto) 0.5 Neut # (Auto) 10.0 H Lymph # (Auto) 1.5 Dade # (Auto) 0.9 H Eos # (Auto) 0.0 Baso # (Auto) 0.1 PT 11.5 INR 1.0 APTT 29.3 Sodium 137 Potassium 4.7 Chloride 105 Carbon Dioxide 26 Anion Gap 11 BUN 33 H Creatinine 0.9 Est GFR ( Amer) > 60 Est GFR (Non-Af Amer) > 60 Random Glucose 131 H Calcium 10.1 Total Bilirubin 0.4 AST 33 ALT 36 Alkaline Phosphatase 78 Total Protein 6.5 Albumin 3.7 Globulin 2.9 Albumin/Globulin Ratio 1.3 Urine Color Urine Clarity Urine pH Ur Specific [place] Urine Protein Urine Glucose (UA) Urine Ketones Urine Blood Urine Nitrate Urine Bilirubin Urine Urobilinogen Ur Leukocyte Esterase Urine RBC (Auto) Urine Microscopic WBC Ur Squamous Epith Cells Blood Type Antibody Screen Crossmatch BBK History Checked 01/24/19 01/25/19 01/25/19 18:00 05:20 05:20 WBC 9.4 RBC 3.53 L Hgb 11.1 L Hct 33.6 L MCV 95.3 MCH 31.5 H MCHC 33.1 RDW 13.4 Plt Count 105 L D MPV Neut % (Auto) Lymph % (Auto) Dade % (Auto) Eos % (Auto) Baso % (Auto) Neut # (Auto) Lymph # (Auto) Dade # (Auto) Eos # (Auto) Baso # (Auto) PT INR APTT Sodium 141 Potassium 4.9 Chloride 108 H Carbon Dioxide 28 Anion Gap 10 BUN 32 H Creatinine 0.8 Est GFR ( Amer) > 60 Est GFR (Non-Af Amer) > 60 Random Glucose 72 Calcium 9.3 Total Bilirubin AST ALT Alkaline Phosphatase Total Protein Albumin Globulin Albumin/Globulin Ratio Urine Color Urine Clarity Urine pH Ur Specific [place] Urine Protein Urine Glucose (UA) Urine Ketones Urine Blood Urine Nitrate Urine Bilirubin Urine Urobilinogen Ur Leukocyte Esterase Urine RBC (Auto) Urine Microscopic WBC Ur Squamous Epith Cells Blood Type AB POSITIVE Antibody Screen Negative Crossmatch See Detail BBK History Checked Patient has bt 01/25/19 08:10 WBC RBC Hgb Hct MCV MCH MCHC RDW Plt Count MPV Neut % (Auto) Lymph % (Auto) Dade % (Auto) Eos % (Auto) Baso % (Auto) Neut # (Auto) Lymph # (Auto) Dade # (Auto) Eos # (Auto) Baso # (Auto) PT INR APTT Sodium Potassium Chloride Carbon Dioxide Anion Gap BUN Creatinine Est GFR ( Amer) Est GFR (Non-Af Amer) Random Glucose Calcium Total Bilirubin AST ALT Alkaline Phosphatase Total Protein Albumin Globulin Albumin/Globulin Ratio Urine Color Yellow Urine Clarity Clear Urine pH 6.0 Ur Specific [place] 1.014 Urine Protein Negative Urine Glucose (UA) Neg Urine Ketones Negative Urine Blood Negative Urine Nitrate Negative Urine Bilirubin Negative Urine Urobilinogen 0.2-1.0 Ur Leukocyte Esterase Neg Urine RBC (Auto) 1 Urine Microscopic WBC 1 Ur Squamous Epith Cells < 1 Blood Type Antibody Screen Crossmatch BBK History Checked Assessment & Plan - Assessment and Plan (Free Text) Assessment: FALL WITH LEFT FEMUR FRACTURE HYPERTENSION HYPERLIPIDEMIA Plan: CONTINUE ATORVASTATIN AND TENORMEN FOR SURGERY TODAY
--- NOTE | 2019-01-25 11:22 | CT ---
Date of service: 01/24/2019 PROCEDURE: CT Lumbar Spine without contrast HISTORY: FALL/ BACK PAIN COMPARISON: None available. TECHNIQUE: Axial computed tomography images were obtained of the lumbar spine without the use of intravenous contrast. Coronal and sagittal reformatted images were created and reviewed. Radiation dose: Total exam DLP = 1353.42 mGy-cm. This CT exam was performed using one or more of the following dose reduction techniques: Automated exposure control, adjustment of the mA and/or kV according to patient size, and/or use of iterative reconstruction technique. FINDINGS: VERTEBRAE: Severe chronic compression fracture of L4. DISCS/SPINAL CANAL/NEURAL FORAMINA: Multilevel severe degenerative disc disease and spondylosis with grade 1 anterolisthesis at L5-S1 as well as severe central canal stenosis at L3-4, L4-5 and L5-S1 exacerbated by facet arthropathy. PARASPINAL SOFT TISSUES: Unremarkable. OTHER FINDINGS: None. IMPRESSION: Severe chronic compression fracture. Multilevel severe degenerative disc disease spondylosis with multilevel lower lumbar central canal stenosis.
--- NOTE | 2019-01-25 12:11 | CT ---
Date of service: 01/24/2019 PROCEDURE: HISTORY: FEMUR FX COMPARISON: TECHNIQUE: FINDINGS: Displaced and angulated fracture of the proximal mid left femur with overriding of the fracture fragments. Associated soft tissue hematoma suspected. The hip and knee joints appear intact. IMPRESSION: As above.
--- NOTE | 2019-01-25 12:43 | RAD ---
Date of service: 01/24/2019 HISTORY: PRE OR COMPARISON: 03/02/2017. FINDINGS: LUNGS: No active pulmonary disease. PLEURA: No significant pleural effusion identified, no pneumothorax apparent. CARDIOVASCULAR: No atherosclerotic calcification present No radiographic findings to suggest acute or significant cardiovascular disease. OSSEOUS STRUCTURES: No significant abnormalities. VISUALIZED UPPER ABDOMEN: Normal. OTHER FINDINGS: None. IMPRESSION: No active disease. No significant interval change compared to the prior examination(s).
[2019-01-25] MEDS ORDERED: Rocuronium 10 mg/ml (5 ml) ONE ×3 (13:38→17:13)
[2019-01-25] MEDS ORDERED: Etomidate 20 mg/10ml Inj IV ONE (13:38)
[2019-01-25] MEDS ORDERED: Lidocaine 4% (Laryng-O-Jet) Kit MM ONE (13:38)
[2019-01-25] MEDS ORDERED: Succinylcholine Chloride 20 mg/ml Syr (5 ml) IV ONE (13:38)
--- NOTE | 2019-01-25 13:45 | CARD ---
APPROVED REPORT Date of service: 01/25/2019 EXAM: Two-dimensional and M-mode echocardiogram with Doppler and color Doppler. Other Information Quality : GoodRhythm : NSR INDICATION Pre-Op Murmur 2D DIMENSIONS IVSd1.10 (0.7-1.1cm)LVDd4.93 (3.9-5.9cm) LVOT Diameter1.71 (1.8-2.4cm)PWd1.13 (0.7-1.1cm) IVSs1.27 (0.8-1.2cm)LVDs4.40 (2.5-4.0cm) FS (%) 10.7 %PWs1.18 (0.8-1.2cm) M-Mode DIMENSIONS Left Atrium (MM)4.41 (2.5-4.0cm)Aortic Root3.21 (2.2-3.7cm) Aortic Valve AoV Peak Zshyqywu107.1cm/sAoV VTI78.5cmAO Peak GR.50mmHg LVOT Peak Egamtcsc64.8cm/sLVOT VTI25.86cmAO Mean GR.30mmHg BECCA (VMAX)0.61ll2BVG (VTI)0.01qa3CR P 1/2 [id number] Mitral Valve MV E Zjuarlbh92.5cm/sMV DECEL [id number] A Mpsioxxh84.0cm/s MV AOX59vfE/A ratio0.5MVA (PHT)4.21cm2 TDI Lateral E' Peak V5.87cm/sMedial E' Peak V5.38cm/sE/Lateral E'7.9 E/Medial E'8.6 LEFT VENTRICLE The left ventricle is normal size. There is borderline concentric left ventricular hypertrophy. The left ventricular systolic function is low normal. The estimated ejection fraction is -50- 55% No regional wall motion abnormalities noted.. Transmitral Doppler flow pattern is Grade I-abnormal relaxation pattern. No left ventricle thrombus noted on this study. There is no ventricular septal defect visualized. There is no left ventricular aneurysm. There is no mass noted in the left ventricle. RIGHT VENTRICLE The right ventricle is normal size. There is normal right ventricular wall thickness. The right ventricular systolic function is normal. ATRIA The left atrium is mildly dilated. The right atrium size is normal. The interatrial septum is intact with no evidence for an atrial septal defect. AORTIC VALVE The aortic valve is tricuspid. Heavily calcified cusps. Moderate aortic regurgitation is present. Peak aortic velocity is 3.5 m/sec. Calculated BECCA is < 1 cm2 suggestive of severe aortic stenosis. There is no aortic valvular vegetation. MITRAL VALVE The mitral valve is normal in structure. There is no evidence of mitral valve prolapse. There is no mitral valve stenosis. There is no mitral valve regurgitation noted. TRICUSPID VALVE The tricuspid valve is normal in structure. There is no significant tricuspid valve regurgitation noted. There is no tricuspid valve prolapse or vegetation. There is no tricuspid valve stenosis. PULMONIC VALVE The pulmonary valve is normal in structure. There is no pulmonic valvular regurgitation. There is no pulmonic valvular stenosis. GREAT VESSELS The aortic root is normal in size. The ascending aorta is normal in size. The pulmonary artery is normal. The IVC is normal in size and collapses >50% with inspiration. PERICARDIAL EFFUSION There is no pericardial effusion. There is no pleural effusion. <Conclusion> There is borderline concentric left ventricular hypertrophy. The estimated ejection fraction is 50- 55%, low normal. Transmitral Doppler flow pattern is Grade I-abnormal relaxation pattern. The left atrium is mildly dilated. Peak aortic velocity is 3.5 m/sec. Calculated BECCA is < 1 cm2 suggestive of severe aortic stenosis. Moderate aortic regurgitation is present. There is no significant tricuspid valve regurgitation noted.
[2019-01-25] MEDS ORDERED: EPINEPHrine 1 mg/ml (1:1000) Inj ONE (13:50)
[2019-01-25] MEDS ORDERED: Thrombin Topical 5,000 Int Units Spray Kit ONE (13:50)
[2019-01-25] MEDS ORDERED: Bupivacaine 0.5% Inj(30mL) ONE (13:50)
[2019-01-25] MEDS ORDERED: Bacitracin Ointment 30 GM TUBE ONE (13:50)
[2019-01-25] MEDS ORDERED: Absorbable Gelatin Sponge Size 12-7 ONE (13:50)
[2019-01-25] MEDS ORDERED: Lactated Ringer's 1,000 ML IV ONE ×2 (14:27)
[2019-01-25] MEDS ORDERED: Sodium Chloride 0.9% 1,000 ML IV ONE ×2 (14:27→16:25)
[2019-01-25] MEDS ORDERED: Sodium Chloride 0.9% 500 ML IV ONE (14:30)
[2019-01-25] MEDS ORDERED: Midazolam 2 MG/2 ML VIAL ONE (14:37)
[2019-01-25] MEDS ORDERED: Propofol 10 mg/ml Inj (20 ML) ONE (15:39)
[2019-01-25] MEDS ORDERED: Ropivacaine 0.5% 30ML IV ONE (17:31)
[2019-01-25] MEDS ORDERED: Calcium Chloride 1000 mg/10 ml Syringe ONE (17:36)
--- NOTE | 2019-01-25 17:43 | CARD ---
APPROVED REPORT Date of service: 01/24/2019 EKG Measurement Heart [id number] MD [id number] <Conclusion> Normal sinus rhythm Normal ECG
--- NOTE | 2019-01-25 18:18 | PCM.SURG1 ---
Surgeon's Initial Post Op Note - Surgeon's Notes Surgeon: Warren Alvarez MD Software Engineering Specialist: Jason Guerra PA-C; Dennis Yun PA-C Type of Anesthesia: General Endo Pre-Operative Diagnosis: Left femoral shaft fx Operative Findings: See op report Post-Operative Diagnosis: same as pre-op dx Operation Performed: Rt open reduction and IM nailing femur fx Specimen/Specimens Removed: none Estimated Blood Loss: EBL {In ML}: 700 Date of Surgery/Procedure: 01/25/19 Time of Surgery/Procedure: 15:00
[2019-01-25] MEDS ORDERED: Neostigmine 1:1000 (1 mg/ml) Inj ONE (18:25)
[2019-01-25] MEDS ORDERED: HYDROmorphone 0.5 mg/0.5 ml ISec IVP PRN (18:55)
--- NOTE | 2019-01-25 19:08 | PCM.ANESB3 ---
Femoral Nerve Block - Femoral Nerve Block Date of Procedure: 01/25/19 Anesthesiologist: Neil Pre-Procedure Diagnosis: Left femur fracture Post-Procedure Diagnosis: Same Procedure Performed: Femoral Nerve Block Left - Procedure Femoral Nerve Block: The procedure was explained to the patient that it is for the post-operative pain management. Consent was obtained after a thorough discussion with the patient regarding the benefits and possible complications of local anesthetic block of the femoral nerve at the inguinal crease area. The patient was brought to the operating room and standard monitors were applied. Time-out was held with the circulating nurse to confirm the correct surgery and the appropriate block. Under general anesthesia, patient was placed in supine position with fully extended lower extremities and the __left groin exposed. The femoral artery was then carefully palpated. The ultrasound transducer was then applied to this area in the transverse plane and the femoral nerve was visualized lateral to the femoral artery and underneath the fascia iliaca. After thorough identification, the inguinal crease area was prepped with Chloraprep At this point, a #22 gauge Stimuplex 4-inch needle was inserted immediately lateral to the femoral artery pulse at the inguinal crease and advanced perpendicularly. The needle was inserted to the ultrasound transducer in-plane towards the femoral nerve in a [id number] direction. Needle advancement was performed carefully under direct ultrasound visualization. Nerve stimulator was used and twitch of the quadriceps muscle was obtained at current of __0.4___MA. After negative aspiration, ___2__cc of _0.25____% ____ro pivacaine was injected and this was followed with _58____ cc of __0.25 % ___ropivacaine . Under ultrasound guidance the local anesthetics were observed spreading below fascia iliaca and around the femoral nerve. The needle was removed intact. The patient tolerated the femoral nerve block well with stable vital signs and was prepared for emergence.
[2019-01-25 20:06] LABS: HEMOGLOBIN 12.9 g/dL (12.0-16.0); MEAN CELL VOLUME 92.2 fl (81.0-99.0); MEAN CORPUSCULAR HEMOGLOBIN 30.5 pg (27.0-31.0); MEAN CORPUSCULAR HGB CONC 33.1 g/dL (33.0-37.0); RBC 4.23 Mil/uL (3.80-5.20); RED CELL DISTRIBUTION WIDTH 13.9 % (11.5-14.5); WHITE BLOOD COUNT 14.2 K/uL (4.8-10.8)
[2019-01-25] MEDS ORDERED: ceFAZolin 1 GM in Sodium Chloride 0.9% 100 ML IVPB ONE (21:00)
--- NOTE | 2019-01-26 00:34 | OP ---
PROCEDURE DATE: 01/25/2019 ATTENDING SURGEON: Warren Alvarez MD INSTRUCTOR INDUSTRIAL DESIGN: Jason Guerra PA-C PREOPERATIVE DIAGNOSIS: Left femoral shaft fracture. POSTOPERATIVE DIAGNOSIS: Left femoral shaft fracture. PROCEDURES: 1. Left hip open reduction and intramedullary nail fixation. 2. Bone grafting of the femoral shaft defect. ANESTHESIA TYPE: General. ESTIMATED BLOOD LOSS: 300 mL. SPECIMENS: None. COMPLICATIONS: None. HISTORY: The patient is a 78-year-old female who had a mechanical fall. The patient had difficulty bearing weight. The patient presented to the emergency room. X-ray showing a displaced shortened and comminuted left femoral shaft fracture. The patient was admitted, underwent preoperative medical clearance. Once medically cleared, was scheduled for surgery the following day. The patient was brought into preop holding area. A laterality sheet was completed confirming the patient's left femur to be correct operative site. Left hip was marked and informed consent was signed from the patient. DESCRIPTION OF THE PROCEDURE: The patient was brought into the operating room table. She underwent general anesthesia. She was placed on the fracture table. The left leg was secured in traction boot. All the prominences were well-padded. The left femur and hip was draped and prepped in standard sterile manner. First, we proceeded with reduction maneuver. Due to morbid obesity and deformity causes, the fracture was not reducible. Decision was made to proceed with open reduction under fluoroscopic guidance. A 6 cm incision was made over the fracture site. Dissection was taken down to the IT band and the vastus lateralis muscle was elevated. Hematoma was evacuated and using two shank pin, the fracture was reduced. It was confirmed on AP and lateral radiographs. The fracture was found to be very unstable. Next, we proceeded with entry point at the greater trochanter for a Synthes TFN nail. Additional 3 cm incision was made proximal to the greater trochanter. The pin was placed in the starting point and confirmed with AP and lateral radiographic visuals. Aiming towards the lesser trochanter, a starting drill hole was made and a ball-tipped guidewire was placed. It was noted that a 420 mm nail would be adequate for this patient. The femoral canal was sequentially reamed up to a 11.5 mm, the nail was impacted into the femur. AP and lateral radiographs showing adequate positioning of the nail. Then, the targeting guide for TFN blade was assembled and the guidewire was placed from the femoral neck into the femoral head. Positioning of the guidewire was confirmed with AP and lateral radiographs. It was noted that 90 mm TFN blade would be adequate for this patient. A drill hole was made and the TFN blade was impacted into the femur. Next, we proceeded with two locking screws which were placed using a perfect teller technique distally and the final radiographs were taken. All the hardware was in place. Wound was copiously irrigated and closed in standard manner. A sterile dressing was applied. The patient was extubated, transferred to stretcher and taken to the recovery room. There were no complications of surgery. Jason Guerra is a certified physician server service assistant who was present for the entirety of the case as her participation was crucial in the patient 's positioning, retraction of critical neurovascular structures, and successful completion of the surgery. Warren Alvarez MD
--- NOTE | 2019-01-26 00:51 | CP.PCM.PCO ---
Addendum Addendum: 01/25/19 20:51 78 y/o F was seen and examined by bedside at PACU after surgical procedure. Pt reports feeling scared, complained of chest pain described as tightness, mild, non-radiating and associated with some SOB. Vitals signs showed a BP 180/90, HR 68, O2 sat at high 90s. Pt uncomfortable, seems anxious, S1 and S2 present with loud systolic murmur, lungs CTAB. --EKG ordered with NO acute ST/T changes. --Psychologist Chief, Dr Dixon, was notified. --Troponin x2 ordered. --Repeated BP after counseling and talking to family member, now 148/85 --Low suspicions for HI. --Dr Tavarez notified. --Chest pain and elevated BP likely due to anxious feelings after surgery. --Will monitor vitals, will f/u troponins.
[2019-01-26] MEDS ORDERED: ceFAZolin 1 GM in Sodium Chloride 0.9% 100 ML IVPB ONE (03:00)
[2019-01-26 04:04] VITALS: BMI 32.9
[2019-01-26 06:01] LABS: BASO % 0.2 % (0.0-2.0); EOS % 0.3 % (0.0-4.0); HEMOGLOBIN 11.2 g/dL (12.0-16.0); LYMPH # 2.2 K/uL (1.0-4.3); LYMPH % 19.2 % (20.0-40.0); MEAN CELL VOLUME 93.3 fl (81.0-99.0); MEAN CORPUSCULAR HEMOGLOBIN 31.2 pg (27.0-31.0); MEAN CORPUSCULAR HGB CONC 33.4 g/dL (33.0-37.0); MEAN PLATELET VOLUME 11.5 fl (7.2-11.7); MONO # 1.1 K/uL (0.0-0.8); MONO % 9.6 % (0.0-10.0); NEUT # 8.2 K/uL (1.8-7.0); NEUT % 70.7 % (50.0-75.0); RBC 3.59 Mil/uL (3.80-5.20); RED CELL DISTRIBUTION WIDTH 14.1 % (11.5-14.5); WHITE BLOOD COUNT 11.6 K/uL (4.8-10.8)
[2019-01-26 06:39] LABS: BLOOD UREA NITROGEN 24 mg/dl (7-17); CALCIUM 8.8 mg/dL (8.4-10.2); GFR NON-AFRICAN AMERICAN > 60
--- NOTE | 2019-01-26 07:19 | CP.PCM.PN ---
Subjective - Date & Time of Evaluation Date of Evaluation: 01/26/19 Time of Evaluation: 07:19 - Subjective Subjective: Patient seen and examined today at bedside, mild leg pain but controlled with meds, also c/o throat soreness. Denies CP, SOB, dizziness, numbness, tingling, tolerating PO, no nausea or vomiting. Objective - Vital Signs/Intake and Output Vital Signs (last 24 hours): Temp Pulse Resp BP Pulse Ox 98.9 F 92 H 17 116/73 98 01/26/19 04:49 01/26/19 04:49 01/26/19 04:49 01/26/19 04:49 01/26/19 04:49 Intake and Output: 01/26/19 01/26/19 06:59 18:59 Output Total 200 Balance -200 - Medications Medications: Current Medications Acetaminophen/Codeine Phosphate (Tylenol/Codeine 300 Mg/30 Mg) 2 tab PO Q12 PRN PRN Reason: Pain, severe (8-10) Aspirin (Ecotrin) 81 mg PO DAILY [facility] Atenolol (Tenormin) 50 mg PO DAILY [facility] Last Admin: 01/25/19 08:58 Dose: 50 mg Atorvastatin Calcium (Lipitor) 10 mg PO DAILY [facility] Last Admin: 01/25/19 08:57 Dose: Not Given Calcium Carbonate (Oscal) 500 mg PO DAILY [facility] Last Admin: 01/25/19 08:57 Dose: Not Given Celecoxib (Celebrex) 200 mg PO BID [facility] Last Admin: 01/25/19 08:57 Dose: Not Given Duloxetine HCl (Cymbalta) 30 mg PO Q12 PRN PRN Reason: Anxiety Enoxaparin Sodium (Lovenox) 40 mg SC DAILY [facility]; Protocol Hydrochlorothiazide (Microzide) 12.5 mg PO DAILY [facility] Last Admin: 01/25/19 08:57 Dose: Not Given Lactated Ringer's (Lactated Ringer's) 1,000 mls @ 140 mls/hr IV .Q7H9M [facility] Last Admin: 01/25/19 18:30 Dose: 150 mls Lactated Ringer's (Lactated Ringer's) 1,000 mls @ 75 mls/hr IV .[id number] [facility] Last Admin: 01/25/19 21:00 Dose: 75 mls/hr Ketorolac Tromethamine (Toradol) 30 mg IVP Q6 PRN PRN Reason: Pain, moderate (4-7) Ketorolac Tromethamine (Toradol) 15 mg IVP Q6 PRN PRN Reason: Pain, Mild (1-3) Morphine Sulfate (Morphine) 2 mg IVP Q4 PRN PRN Reason: Pain, severe (8-10) Last Admin: 01/25/19 09:43 Dose: 2 mg Multivitamins/Minerals (Therapeutic-M Tab) 1 tab PO DAILY [place] Last Admin: 01/25/19 08:57 Dose: Not Given - Labs Labs: 01/26/19 04:45 01/26/19 04:45 PT 11.5 Seconds (9.8-13.1) 01/24/19 18:00 INR 1.0 01/24/19 18:00 APTT 29.3 Seconds (25.6-37.1) 01/24/19 18:00 - Constitutional Appears: No Acute Distress - Head Exam Head Exam: NORMAL INSPECTION - Respiratory Exam Respiratory Exam: Clear to Ausculation Bilateral, NORMAL BREATHING PATTERN - Cardiovascular Exam Cardiovascular Exam: REGULAR RHYTHM, +S1, +S2, Murmur. absent: Tachycardia - GI/Abdominal Exam GI & Abdominal Exam: Soft, Normal Bowel Sounds. absent: Distended, Tenderness - Extremities Exam Additional comments: RLE: moderated edema on thigh, dressing in place no visible drainage. Noted tear to skin fold under pannus, painful per pt. Able to move ankle/toes, sensation intact +DP/PT. - Neurological Exam Neurological Exam: Alert, Awake, Oriented x3 - Skin Skin Exam: Dry, Warm Assessment and Plan - Assessment and Plan (Free Text) Assessment: 78 y/o F with a PMHx of HTN, HLD, ?SLE, seizures, R breast cancer and osteoporosis is admitted for evaluation and management of Left femur displaced fracture. XR L femur: Displaced left femoral diaphysis fracture. Questionable hematoma adjacent to the fracture site. CT of LLE: displaced and angulated fracture involving the proximal mid L femur, soft tissue hematoma suspected. PLAN: Displaced Left Femoral shaft Fracture - POD#1 s/p IM nail - Pain management: toradol for mild and moderate, Morphine for severe. - Orthopedic Surgery consult, Dr Alvarez. - PT/OT - Planing for d/c-- OSMAN Acute blood loss anemia - s/p 2 units PRBC - stable H/H, asymptomatic - cbc in am ?SLE/?RA - Chronic - cont Home meds HTN - Chronic, controlled - c/ home meds HLD - Chronic - Home meds resumed Hx of Seizure - Last episode 2 years ago. -Not on chronic medication anymore. DVT Prophylaxis - start Lovenox sc daily - SCD for R lower leg only Case discussed with Dr Tavarez. Tawana PGY 2
[2019-01-26] MEDS: Multivitamin With Minerals Tab PO SCH (08:45)
[2019-01-26] MEDS: Lactated Ringer's 1,000 ML IV SCH ×2 (08:50→21:00)
--- NOTE | 2019-01-26 09:36 | RAD ---
Date of service: 01/25/2019 PROCEDURE: Intraoperative Fluoroscopy. HISTORY: OR FINDINGS: Fluoroscopic assistance was provided. Fluoroscopy time = 353.7 sec. Radiation dose = 59.85 mGy. Please refer to the operative report for additional details.
--- NOTE | 2019-01-26 09:44 | CP.PCM.PN ---
Subjective - Date & Time of Evaluation Date of Evaluation: 01/26/19 Time of Evaluation: 09:42 - Subjective Subjective: Patient complaining of throat soreness and a lot of leg pain. Says the pain medication helps but does not control pain. Spoke with son at patient's request as well. Denies CP/SOB/dizziness/numbness/tingling/n/v Objective - Vital Signs/Intake and Output Vital Signs (last 24 hours): Temp Pulse Resp BP Pulse Ox 99.4 F 99 H 18 117/75 98 01/26/19 08:00 01/26/19 08:46 01/26/19 08:00 01/26/19 08:46 01/26/19 08:00 Intake and Output: 01/26/19 01/26/19 06:59 18:59 Output Total 200 Balance -200 - Medications Medications: Current Medications Acetaminophen/Codeine Phosphate (Tylenol/Codeine 300 Mg/30 Mg) 2 tab PO Q12 PRN PRN Reason: Pain, severe (8-10) Aspirin (Ecotrin) 81 mg PO DAILY [facility] Atenolol (Tenormin) 50 mg PO DAILY [facility] Last Admin: 01/26/19 08:46 Dose: 50 mg Atorvastatin Calcium (Lipitor) 10 mg PO DAILY [facility] Last Admin: 01/26/19 08:46 Dose: 10 mg Benzocaine/Menthol (Cepacol Sore Throat) 1 susie PO Q3 PRN PRN Reason: Sore Throat Calcium Carbonate (Oscal) 500 mg PO DAILY [facility] Last Admin: 01/26/19 08:45 Dose: 500 mg Celecoxib (Celebrex) 200 mg PO BID [facility] Last Admin: 01/26/19 08:44 Dose: 200 mg Duloxetine HCl (Cymbalta) 30 mg PO Q12 PRN PRN Reason: Anxiety Last Admin: 01/26/19 08:44 Dose: 30 mg Enoxaparin Sodium (Lovenox) 40 mg SC DAILY [facility]; Protocol Hydrochlorothiazide (Microzide) 12.5 mg PO DAILY [facility] Last Admin: 01/26/19 08:45 Dose: 12.5 mg Lactated Ringer's (Lactated Ringer's) 1,000 mls @ 140 mls/hr IV .Q7H9M [facility] Last Admin: 01/25/19 18:30 Dose: 150 mls Lactated Ringer's (Lactated Ringer's) 1,000 mls @ 75 mls/hr IV .[id number] [facility] Last Admin: 01/26/19 08:50 Dose: 75 mls/hr Ketorolac Tromethamine (Toradol) 30 mg IVP Q6 PRN PRN Reason: Pain, moderate (4-7) Last Admin: 01/26/19 08:37 Dose: 30 mg Ketorolac Tromethamine (Toradol) 15 mg IVP Q6 PRN PRN Reason: Pain, Mild (1-3) Morphine Sulfate (Morphine) 2 mg IVP Q4 PRN PRN Reason: Pain, severe (8-10) Last Admin: 01/25/19 09:43 Dose: 2 mg Multivitamins/Minerals (Therapeutic-M Tab) 1 tab PO DAILY [facility] Last Admin: 01/26/19 08:45 Dose: 1 tab - Labs Labs: 01/26/19 04:45 01/26/19 04:45 PT 11.5 Seconds (9.8-13.1) 01/24/19 18:00 INR 1.0 01/24/19 18:00 APTT 29.3 Seconds (25.6-37.1) 01/24/19 18:00 - Extremities Exam Additional comments: RLE: thigh swollen as expected. Incisions intact, no visible drainage. noted tear to skin fold under pannus that is painful. +ROM ankle/toes, sensation intact +DP/PT pulses calves soft NT neg homans Assessment and Plan (1) Left femoral shaft fracture Assessment & Plan: POD#1 s/p IM nail s/p 2uPRBC intra op, monitor h/h cepacol for throat soreness from ET bacitracin to skin folds PT/OT d/c planning VTE proph, lovenox order checked with pharmacy, pending due to platelet count, now released d/w Dr. Alvarez, agrees with above Status: Acute (2) Acute blood loss anemia Assessment & Plan: s/p 2u monitor Status: Acute
--- NOTE | 2019-01-26 11:12 | CP.PCM.PN ---
Subjective - Date & Time of Evaluation Date of Evaluation: 01/26/19 Time of Evaluation: 10:00 - Subjective Subjective: NO CHEST PAIN OR SOB FEELS OK THIS MORNING Objective - Vital Signs/Intake and Output Vital Signs (last 24 hours): Temp Pulse Resp BP Pulse Ox 99.4 F 95 H 18 117/75 98 01/26/19 08:00 01/26/19 10:25 01/26/19 08:00 01/26/19 08:46 01/26/19 10:25 Intake and Output: 01/26/19 01/26/19 06:59 18:59 Output Total 200 Balance -200 - Medications Medications: Current Medications Acetaminophen/Codeine Phosphate (Tylenol/Codeine 300 Mg/30 Mg) 2 tab PO Q12 PRN PRN Reason: Pain, severe (8-10) Aspirin (Ecotrin) 81 mg PO DAILY [facility] Atenolol (Tenormin) 50 mg PO DAILY [facility] Last Admin: 01/26/19 08:46 Dose: 50 mg Atorvastatin Calcium (Lipitor) 10 mg PO DAILY [facility] Last Admin: 01/26/19 08:46 Dose: 10 mg Bacitracin (Bacitracin Oint) 1 applic TOP BID [facility] Benzocaine/Menthol (Cepacol Sore Throat) 1 susie PO Q3 PRN PRN Reason: Sore Throat Calcium Carbonate (Oscal) 500 mg PO DAILY [facility] Last Admin: 01/26/19 08:45 Dose: 500 mg Celecoxib (Celebrex) 200 mg PO BID [facility] Last Admin: 01/26/19 08:44 Dose: 200 mg Duloxetine HCl (Cymbalta) 30 mg PO Q12 PRN PRN Reason: Anxiety Last Admin: 01/26/19 08:44 Dose: 30 mg Enoxaparin Sodium (Lovenox) 40 mg SC DAILY [facility]; Protocol Hydrochlorothiazide (Microzide) 12.5 mg PO DAILY [facility] Last Admin: 01/26/19 08:45 Dose: 12.5 mg Lactated Ringer's (Lactated Ringer's) 1,000 mls @ 140 mls/hr IV .Q7H9M [facility] Last Admin: 01/25/19 18:30 Dose: 150 mls Lactated Ringer's (Lactated Ringer's) 1,000 mls @ 75 mls/hr IV .[id number] [facility] Last Admin: 01/26/19 08:50 Dose: 75 mls/hr Ketorolac Tromethamine (Toradol) 30 mg IVP Q6 PRN PRN Reason: Pain, moderate (4-7) Last Admin: 01/26/19 08:37 Dose: 30 mg Ketorolac Tromethamine (Toradol) 15 mg IVP Q6 PRN PRN Reason: Pain, Mild (1-3) Morphine Sulfate (Morphine) 2 mg IVP Q4 PRN PRN Reason: Pain, severe (8-10) Last Admin: 01/25/19 09:43 Dose: 2 mg Multivitamins/Minerals (Therapeutic-M Tab) 1 tab PO DAILY [facility] Last Admin: 01/26/19 08:45 Dose: 1 tab - Labs Labs: 01/26/19 04:45 01/26/19 04:45 PT 11.5 Seconds (9.8-13.1) 01/24/19 18:00 INR 1.0 01/24/19 18:00 APTT 29.3 Seconds (25.6-37.1) 01/24/19 18:00 - Respiratory Exam Respiratory Exam: Clear to Ausculation Bilateral - Cardiovascular Exam Cardiovascular Exam: REGULAR RHYTHM, +S1, +S2, Murmur - Additional Findings Additional findings: OR NOTES SEEN AND PATIENT HAS SURGERY FOR LEFT FEMORAL SHAFT FX YESTERDAY H/H THIS MORNING BP WAS ELEVATED POST-OP BUT IS GOOD THIS MORNING-PATIENT STATES SHE WAS NERVOUS AND IN PAIN YESTERDAY Assessment and Plan - Assessment and Plan (Free Text) Assessment: S/P SURGICAL REPAIR OF LEFT FEMORAL SHAFT FRACTURE HYPERTENSION HYPERLIPIDEMIA Plan: CONTINUE ATENOLOL, HCTZ, ASPIRIN, LOVENOX AND ATORVASTATIN ECHOCARDIOGRAM ORDERED
[2019-01-26] MEDS ORDERED: Lidocaine 2.5% OINTMENT TOP SCH (12:45)
[2019-01-26] MEDS: Bacitracin OINT 15GM TOP SCH ×2 (13:00→16:26)
[2019-01-26] MEDS: Enoxaparin 40 mg Syringe SC SCH (13:00)
--- NOTE | 2019-01-26 22:31 | CARD ---
APPROVED REPORT Date of service: 01/25/2019 EKG Measurement Heart [id number] [id number] <Conclusion> Normal sinus rhythm Normal ECG
[2019-01-27] MEDS: Benzocaine/Menthol (Cepacol) Lozenge PO PRN ×3 (03:45→23:05)
[2019-01-27 06:22] LABS: BASO % 0.4 % (0.0-2.0); EOS # 0.1 K/uL (0.0-0.7); EOS % 1.7 % (0.0-4.0); HEMOGLOBIN 9.8 g/dL (12.0-16.0); LYMPH # 1.3 K/uL (1.0-4.3); LYMPH % 15.2 % (20.0-40.0); MEAN CELL VOLUME 93.9 fl (81.0-99.0); MEAN CORPUSCULAR HEMOGLOBIN 31.7 pg (27.0-31.0); MEAN CORPUSCULAR HGB CONC 33.8 g/dL (33.0-37.0); MEAN PLATELET VOLUME 11.6 fl (7.2-11.7); MONO # 0.8 K/uL (0.0-0.8); MONO % 9.4 % (0.0-10.0); NEUT # 6.3 K/uL (1.8-7.0); NEUT % 73.3 % (50.0-75.0); RBC 3.08 Mil/uL (3.80-5.20); WHITE BLOOD COUNT 8.6 K/uL (4.8-10.8)
[2019-01-27 06:48] LABS: BLOOD UREA NITROGEN 22 mg/dl (7-17); CALCIUM 8.4 mg/dL (8.4-10.2); GFR NON-AFRICAN AMERICAN > 60
--- NOTE | 2019-01-27 06:58 | CP.PCM.PN ---
<Amadeo Jimenez - Last Filed: 01/27/19 10:54> Subjective - Date & Time of Evaluation Date of Evaluation: 01/27/19 Time of Evaluation: 06:57 - Subjective Subjective: Patient seen and examined today at bedside, no c/o pain at this time, well controlled with meds. Denies CP, SOB, dizziness, numbness, tingling, tolerating PO, no nausea or vomiting. d/c prasad voiding without difficulty, no BM yet but passing gas per rectum. VSS, afebrile Objective - Vital Signs/Intake and Output Vital Signs (last 24 hours): Temp Pulse Resp BP Pulse Ox 98.3 F 91 H 18 138/80 99 01/27/19 04:53 01/27/19 04:53 01/27/19 04:53 01/27/19 04:53 01/27/19 04:53 - Medications Medications: Current Medications Acetaminophen/Codeine Phosphate (Tylenol/Codeine 300 Mg/30 Mg) 2 tab PO Q12 PRN PRN Reason: Pain, severe (8-10) Aspirin (Ecotrin) 81 mg PO DAILY [facility] Atenolol (Tenormin) 50 mg PO DAILY [facility] Last Admin: 01/26/19 08:46 Dose: 50 mg Atorvastatin Calcium (Lipitor) 10 mg PO DAILY [facility] Last Admin: 01/26/19 08:46 Dose: 10 mg Bacitracin (Bacitracin Oint) 1 applic TOP BID [facility] Last Admin: 01/26/19 16:26 Dose: 1 applic Benzocaine/Menthol (Cepacol Sore Throat) 1 susie PO Q3 PRN PRN Reason: Sore Throat Last Admin: 01/27/19 03:45 Dose: 1 susie Calcium Carbonate (Oscal) 500 mg PO DAILY [facility] Last Admin: 01/26/19 08:45 Dose: 500 mg Celecoxib (Celebrex) 200 mg PO BID [facility] Last Admin: 01/26/19 16:26 Dose: 200 mg Duloxetine HCl (Cymbalta) 30 mg PO Q12 PRN PRN Reason: Anxiety Last Admin: 01/26/19 08:44 Dose: 30 mg Enoxaparin Sodium (Lovenox) 40 mg SC DAILY [facility]; Protocol Last Admin: 01/26/19 13:00 Dose: 40 mg Enoxaparin Sodium (Lovenox) 80 mg SC DAILY [facility]; Protocol Hydrochlorothiazide (Microzide) 12.5 mg PO DAILY [facility] Last Admin: 01/26/19 08:45 Dose: 12.5 mg Lactated Ringer's (Lactated Ringer's) 1,000 mls @ 140 mls/hr IV .Q7H9M [facility] Last Admin: 01/25/19 18:30 Dose: 150 mls Lactated Ringer's (Lactated Ringer's) 1,000 mls @ 75 mls/hr IV .[id number] [facility] Last Admin: 01/26/19 21:00 Dose: 75 mls/hr Ketorolac Tromethamine (Toradol) 30 mg IVP Q6 PRN PRN Reason: Pain, moderate (4-7) Last Admin: 01/26/19 16:28 Dose: 30 mg Ketorolac Tromethamine (Toradol) 15 mg IVP Q6 PRN PRN Reason: Pain, Mild (1-3) Morphine Sulfate (Morphine) 2 mg IVP Q4 PRN PRN Reason: Pain, severe (8-10) Last Admin: 01/27/19 02:58 Dose: 2 mg Multivitamins/Minerals (Therapeutic-M Tab) 1 tab PO DAILY [facility] Last Admin: 01/26/19 08:45 Dose: 1 tab - Labs Labs: 01/27/19 04:30 01/27/19 04:30 PT 11.5 Seconds (9.8-13.1) 01/24/19 18:00 INR 1.0 01/24/19 18:00 APTT 29.3 Seconds (25.6-37.1) 01/24/19 18:00 - Constitutional Appears: No Acute Distress - Respiratory Exam Respiratory Exam: Clear to Ausculation Bilateral, NORMAL BREATHING PATTERN - Cardiovascular Exam Cardiovascular Exam: REGULAR RHYTHM, +S1, +S2, Murmur - GI/Abdominal Exam GI & Abdominal Exam: Soft, Normal Bowel Sounds. absent: Distended, Tenderness - Extremities Exam Additional comments: RLE: mild-moderated edema on thigh, dressing in place no visible drainage. Noted tear to skin fold under pannus, painful per pt. Able to move ankle/toes, sensation intact +DP/PT. - Neurological Exam Neurological Exam: Alert, Awake, Oriented x3 - Skin Skin Exam: Dry, Warm Assessment and Plan - Assessment and Plan (Free Text) Assessment: 78 y/o F with a PMHx of HTN, HLD, ?SLE, seizures, R breast cancer and osteoporosis is admitted for evaluation and management of Left femur displaced fracture. XR L femur: Displaced left femoral diaphysis fracture. Questionable hematoma adjacent to the fracture site. CT of LLE: displaced and angulated fracture involving the proximal mid L femur, soft tissue hematoma suspected. PLAN: Displaced Left Femoral shaft Fracture - POD#2 s/p IM nail - Pain management: toradol for mild and moderate, Morphine for severe. - Orthopedic Surgery consult, Dr Alvarez. - PT/OT - Planing for d/c-- [facility] ([facility] likely on Tuesday) Acute blood loss anemia - Hgb 9.3 - s/p 2 units PRBC - asymptomatic - f/u cbc in am ?SLE/?RA - Chronic - cont Home meds HTN - Chronic, controlled - c/ home meds HLD - Chronic - Home meds resumed Hx of Seizure - Last episode 2 years ago. -Not on chronic medication anymore. DVT Prophylaxis - start Lovenox sc daily - SCD for R lower leg only Case discussed with Dr Ramires. Tawana PGY 2 <Ankur Ramires - Last Filed: 01/27/19 11:15> Objective - Vital Signs/Intake and Output Vital Signs (last 24 hours): Temp Pulse Resp BP Pulse Ox 98.7 F 95 H 18 123/76 99 01/27/19 08:33 01/27/19 08:56 01/27/19 08:33 01/27/19 08:56 01/27/19 08:33 - Medications Medications: Current Medications Acetaminophen/Codeine Phosphate (Tylenol/Codeine 300 Mg/30 Mg) 2 tab PO Q12 PRN PRN Reason: Pain, severe (8-10) Aspirin (Ecotrin) 81 mg PO DAILY [facility] Last Admin: 01/27/19 10:40 Dose: 81 mg Atenolol (Tenormin) 50 mg PO DAILY [facility] Last Admin: 01/27/19 08:56 Dose: 50 mg Atorvastatin Calcium (Lipitor) 10 mg PO DAILY [facility] Last Admin: 01/27/19 08:55 Dose: 10 mg Bacitracin (Bacitracin Oint) 1 applic TOP BID [facility] Last Admin: 01/27/19 08:47 Dose: 1 applic Benzocaine/Menthol (Cepacol Sore Throat) 1 susie PO Q3 PRN PRN Reason: Sore Throat Last Admin: 01/27/19 08:48 Dose: 1 susie Calcium Carbonate (Oscal) 500 mg PO DAILY [facility] Last Admin: 01/27/19 08:56 Dose: 500 mg Celecoxib (Celebrex) 200 mg PO BID [facility] Last Admin: 01/27/19 08:49 Dose: 200 mg Docusate Sodium (Colace) 100 mg PO DAILY [facility] Last Admin: 01/27/19 08:58 Dose: 100 mg Duloxetine HCl (Cymbalta) 30 mg PO Q12 PRN PRN Reason: Anxiety Last Admin: 01/27/19 08:48 Dose: 30 mg Enoxaparin Sodium (Lovenox) 40 mg SC DAILY [facility]; Protocol Last Admin: 01/27/19 08:47 Dose: 40 mg Enoxaparin Sodium (Lovenox) 80 mg SC DAILY [facility]; Protocol Hydrochlorothiazide (Microzide) 12.5 mg PO DAILY [facility] Last Admin: 01/27/19 08:55 Dose: 12.5 mg Lactated Ringer's (Lactated Ringer's) 1,000 mls @ 140 mls/hr IV .Q7H9M [facility] Last Admin: 01/25/19 18:30 Dose: 150 mls Lactated Ringer's (Lactated Ringer's) 1,000 mls @ 75 mls/hr IV .[id number] [facility] Last Admin: 01/27/19 10:38 Dose: 75 mls/hr Ketorolac Tromethamine (Toradol) 30 mg IVP Q6 PRN PRN Reason: Pain, moderate (4-7) Last Admin: 01/26/19 16:28 Dose: 30 mg Ketorolac Tromethamine (Toradol) 15 mg IVP Q6 PRN PRN Reason: Pain, Mild (1-3) Last Admin: 01/27/19 09:01 Dose: 15 mg Morphine Sulfate (Morphine) 2 mg IVP Q4 PRN PRN Reason: Pain, severe (8-10) Last Admin: 01/27/19 02:58 Dose: 2 mg Multivitamins/Minerals (Therapeutic-M Tab) 1 tab PO DAILY [facility] Last Admin: 01/27/19 08:48 Dose: 1 tab - Labs Labs: 01/27/19 04:30 01/27/19 04:30 PT 11.5 Seconds (9.8-13.1) 01/24/19 18:00 INR 1.0 01/24/19 18:00 APTT 29.3 Seconds (25.6-37.1) 01/24/19 18:00 Attending/Attestation - Attestation I have personally seen and examined this patient.: Yes I have fully participated in the care of the patient.: Yes I have reviewed all pertinent clinical information, including history, physical exam and plan: Yes Notes (Text): 01/27/19 11:14 Patient seen and examined with resident. Case discussed and agreed with assessment.
[2019-01-27] MEDS: Enoxaparin 40 mg Syringe SC SCH (08:47)
[2019-01-27] MEDS: Bacitracin OINT 15GM TOP SCH ×2 (08:47→17:09)
[2019-01-27] MEDS: Multivitamin With Minerals Tab PO SCH (08:48)
[2019-01-27] MEDS ORDERED: Enoxaparin 80 mg Syringe SC SCH (09:00)
[2019-01-27] MEDS: Lactated Ringer's 1,000 ML IV SCH (10:38)
--- NOTE | 2019-01-27 14:03 | US ---
Date of service: 01/26/2019 PROCEDURE: Urinary bladder ultrasound HISTORY: N20.2 COMPARISON: No prior TECHNIQUE: Transabdominal sonographic evaluation of the urinary bladder performed. FINDINGS: Unremarkable without wall thickening or intraluminal debris. No calculus or gross mass lesion. No free fluid in pelvis. Prevoid Volume: 104 cc.. Patient was unable to void and postvoid residual volume remains unchanged at 104 cc. IMPRESSION: Patient unable to void with prevoid and postvoid volume calculated at 104 cc
[2019-01-28 06:10] LABS: BASO % 0.3 % (0.0-2.0); EOS # 0.1 K/uL (0.0-0.7); EOS % 1.8 % (0.0-4.0); HEMOGLOBIN 9.1 g/dL (12.0-16.0); LYMPH % 14.4 % (20.0-40.0); MEAN CELL VOLUME 93.4 fl (81.0-99.0); MEAN CORPUSCULAR HEMOGLOBIN 31.7 pg (27.0-31.0); MEAN CORPUSCULAR HGB CONC 33.9 g/dL (33.0-37.0); MEAN PLATELET VOLUME 10.8 fl (7.2-11.7); MONO # 0.8 K/uL (0.0-0.8); MONO % 11.7 % (0.0-10.0); NEUT # 4.9 K/uL (1.8-7.0); NEUT % 71.8 % (50.0-75.0); NRBC % 0.1 % (0.0-0.0); RBC 2.88 Mil/uL (3.80-5.20); RED CELL DISTRIBUTION WIDTH 13.9 % (11.5-14.5); WHITE BLOOD COUNT 6.8 K/uL (4.8-10.8)
[2019-01-28 06:32] LABS: BLOOD UREA NITROGEN 14 mg/dl (7-17); CALCIUM 8.3 mg/dL (8.4-10.2); GFR NON-AFRICAN AMERICAN > 60
--- NOTE | 2019-01-28 08:28 | CP.PCM.PN ---
<Adrian Jonas - Last Filed: 01/28/19 10:16> Subjective - Date & Time of Evaluation Date of Evaluation: 01/28/19 Time of Evaluation: 06:00 - Subjective Subjective: Patient seen and examined at bedside. No acute event overnight. Patient tolerating pain with medication, she report having mild abd pain due to constipation, otherwise she have been breathing well, and denies chest pain, headache, fever,chills, or any other symptoms Objective - Vital Signs/Intake and Output Vital Signs (last 24 hours): Temp Pulse Resp BP Pulse Ox 98 F 85 18 148/82 95 01/28/19 08:17 01/28/19 08:17 01/28/19 08:17 01/28/19 08:17 01/28/19 08:17 - Medications Medications: Current Medications Acetaminophen/Codeine Phosphate (Tylenol/Codeine 300 Mg/30 Mg) 2 tab PO Q12 PRN PRN Reason: Pain, severe (8-10) Aspirin (Ecotrin) 81 mg PO DAILY [facility] Last Admin: 01/27/19 10:40 Dose: 81 mg Atenolol (Tenormin) 50 mg PO DAILY [facility] Last Admin: 01/27/19 08:56 Dose: 50 mg Atorvastatin Calcium (Lipitor) 10 mg PO DAILY [facility] Last Admin: 01/27/19 08:55 Dose: 10 mg Bacitracin (Bacitracin Oint) 1 applic TOP BID [facility] Last Admin: 01/27/19 17:09 Dose: 1 applic Benzocaine/Menthol (Cepacol Sore Throat) 1 susie PO Q3 PRN PRN Reason: Sore Throat Last Admin: 01/27/19 23:05 Dose: 1 susie Calcium Carbonate (Oscal) 500 mg PO DAILY [facility] Last Admin: 01/27/19 08:56 Dose: 500 mg Celecoxib (Celebrex) 200 mg PO BID [facility] Last Admin: 01/27/19 17:12 Dose: 200 mg Docusate Sodium (Colace) 100 mg PO DAILY [facility] Last Admin: 01/27/19 08:58 Dose: 100 mg Duloxetine HCl (Cymbalta) 30 mg PO Q12 PRN PRN Reason: Anxiety Last Admin: 01/27/19 08:48 Dose: 30 mg Enoxaparin Sodium (Lovenox) 40 mg SC DAILY [facility]; Protocol Last Admin: 01/27/19 08:47 Dose: 40 mg Hydrochlorothiazide (Microzide) 12.5 mg PO DAILY [place] Last Admin: 01/27/19 08:55 Dose: 12.5 mg Ketorolac Tromethamine (Toradol) 30 mg IVP Q6 PRN PRN Reason: Pain, moderate (4-7) Last Admin: 01/27/19 22:09 Dose: 30 mg Ketorolac Tromethamine (Toradol) 15 mg IVP Q6 PRN PRN Reason: Pain, Mild (1-3) Last Admin: 01/27/19 09:01 Dose: 15 mg Morphine Sulfate (Morphine) 2 mg IVP Q4 PRN PRN Reason: Pain, severe (8-10) Last Admin: 01/27/19 02:58 Dose: 2 mg Multivitamins/Minerals (Therapeutic-M Tab) 1 tab PO DAILY [place] Last Admin: 01/27/19 08:48 Dose: 1 tab - Labs Labs: 01/28/19 04:25 01/28/19 04:25 PT 11.5 Seconds (9.8-13.1) 01/24/19 18:00 INR 1.0 01/24/19 18:00 APTT 29.3 Seconds (25.6-37.1) 01/24/19 18:00 - Constitutional Appears: Well, Non-toxic, No Acute Distress - Head Exam Head Exam: ATRAUMATIC, NORMAL INSPECTION, NORMOCEPHALIC - Eye Exam Eye Exam: EOMI, Normal appearance, PERRL Pupil Exam: NORMAL ACCOMODATION, PERRL - ENT Exam ENT Exam: Mucous Membranes Moist, Normal Exam - Neck Exam Neck Exam: Full ROM, Normal Inspection - Respiratory Exam Respiratory Exam: Clear to Ausculation Bilateral, NORMAL BREATHING PATTERN - Cardiovascular Exam Cardiovascular Exam: REGULAR RHYTHM Additional comments: Systolic murmur noted on aortic - GI/Abdominal Exam GI & Abdominal Exam: Soft, Normal Bowel Sounds - Extremities Exam Extremities Exam: Normal Capillary Refill, Normal Inspection Additional comments: LEFT thigh wrapped with MARCK wrapped, no discharge noted. no pedal edema, capillary refill WNL, pulse felt in 4 extremities . - Back Exam Back Exam: NORMAL INSPECTION - Neurological Exam Neurological Exam: Alert, Awake, CN II-XII Intact, Oriented x3 Neuro motor strength exam: Left Upper Extremity: 4, Right Upper Extremity: 4, Left Lower Extremity: 4, Right Lower Extremity: 4 - Psychiatric Exam Psychiatric exam: Normal Affect, Normal Mood - Skin Skin Exam: Dry, Intact, Normal Color, Warm Assessment and Plan - Assessment and Plan (Free Text) Assessment: 78 yo female with PMHx of HTN, HLD, SLE, Seizure, R breast Cancer and osteoporosis, is admitted for evaluation and managment of left femur displaced fracture. XR L femur: Displaced left femoral diaphysis fracture. Questionable hematoma ad jacent to the fracture site. CT of LLE: displaced and angulated fracture involving the proximal mid L femur, soft tissue hematoma suspected. PLAN: Displaced Left Femoral shaft Fracture - POD#3 s/p IM nail - Pain management: toradol for mild and moderate, Morphine for severe. - Orthopedic Surgery consult, Dr Alvarez. - PT/OT - Planing for d/c on 01/29/19 [facility] ) Acute blood loss anemia - H/h 9.1/26.9 ( prev 9.8/28.9) - s/p 2 units PRBC - asymptomatic Constipation possible medicine induced Continue colace Start lactulose 20 prn constipation ?SLE/?RA - Chronic - cont Home meds HTN - 1 reading of 158/80 at 5 am, but have regulated - Chronic, controlled - c/ home meds HLD - Chronic - Home meds resumed Hx of Seizure - Last episode 2 years ago. -Not on chronic medication anymore. DVT Prophylaxis - Lovenox sc daily - SCD for R lower leg only <Ankur Ramires D - Last Filed: 01/28/19 11:25> Objective - Vital Signs/Intake and Output Vital Signs (last 24 hours): Temp Pulse Resp BP Pulse Ox 98 F 85 18 148/82 95 01/28/19 08:17 01/28/19 09:47 01/28/19 08:17 01/28/19 09:47 01/28/19 08:17 - Medications Medications: Current Medications Acetaminophen/Codeine Phosphate (Tylenol/Codeine 300 Mg/30 Mg) 2 tab PO Q12 PRN PRN Reason: Pain, severe (8-10) Aspirin (Ecotrin) 81 mg PO DAILY [facility] Last Admin: 01/28/19 09:45 Dose: 81 mg Atenolol (Tenormin) 50 mg PO DAILY [facility] Last Admin: 01/28/19 09:47 Dose: 50 mg Atorvastatin Calcium (Lipitor) 10 mg PO DAILY [facility] Last Admin: 01/28/19 09:46 Dose: 10 mg Bacitracin (Bacitracin Oint) 1 applic TOP BID [facility] Last Admin: 01/28/19 09:41 Dose: 1 applic Benzocaine/Menthol (Cepacol Sore Throat) 1 susie PO Q3 PRN PRN Reason: Sore Throat Last Admin: 01/27/19 23:05 Dose: 1 susie Calcium Carbonate (Oscal) 500 mg PO DAILY [facility] Last Admin: 01/28/19 09:47 Dose: 500 mg Celecoxib (Celebrex) 200 mg PO BID [facility] Last Admin: 01/28/19 09:44 Dose: 200 mg Docusate Sodium (Colace) 100 mg PO DAILY [facility] Last Admin: 01/28/19 09:45 Dose: 100 mg Duloxetine HCl (Cymbalta) 30 mg PO Q12 PRN PRN Reason: Anxiety Last Admin: 01/27/19 08:48 Dose: 30 mg Enoxaparin Sodium (Lovenox) 40 mg SC DAILY [facility]; Protocol Last Admin: 01/28/19 09:42 Dose: 40 mg Hydrochlorothiazide (Microzide) 12.5 mg PO DAILY [facility] Last Admin: 01/28/19 09:46 Dose: 12.5 mg Ketorolac Tromethamine (Toradol) 30 mg IVP Q6 PRN PRN Reason: Pain, moderate (4-7) Last Admin: 01/27/19 22:09 Dose: 30 mg Ketorolac Tromethamine (Toradol) 15 mg IVP Q6 PRN PRN Reason: Pain, Mild (1-3) Last Admin: 01/27/19 09:01 Dose: 15 mg Lactulose (Enulose) 20 gm PO DAILY PRN PRN Reason: Constipation Last Admin: 01/28/19 09:52 Dose: 20 gm Morphine Sulfate (Morphine) 2 mg IVP Q4 PRN PRN Reason: Pain, severe (8-10) Last Admin: 01/27/19 02:58 Dose: 2 mg Multivitamins/Minerals (Therapeutic-M Tab) 1 tab PO DAILY [facility] Last Admin: 01/28/19 09:48 Dose: 1 tab - Labs Labs: 01/28/19 04:25 01/28/19 04:25 PT 11.5 Seconds (9.8-13.1) 01/24/19 18:00 INR 1.0 01/24/19 18:00 APTT 29.3 Seconds (25.6-37.1) 01/24/19 18:00 Attending/Attestation - Attestation I have personally seen and examined this patient.: Yes I have fully participated in the care of the patient.: Yes I have reviewed all pertinent clinical information, including history, physical exam and plan: Yes Notes (Text): 01/28/19 11:24 Patient seen and examined with resident. Case discussed and agreed with assessment and plan.
[2019-01-28] MEDS: Bacitracin OINT 15GM TOP SCH ×2 (09:41→17:15)
[2019-01-28] MEDS: Enoxaparin 40 mg Syringe SC SCH (09:42)
[2019-01-28] MEDS: Multivitamin With Minerals Tab PO SCH (09:48)
--- NOTE | 2019-01-28 13:05 | CP.PCM.PN ---
Subjective - Date & Time of Evaluation Date of Evaluation: 01/18/19 Time of Evaluation: 12:00 - Subjective Subjective: NO CHEST PAIN OR SOB FEELS BETTER Objective - Vital Signs/Intake and Output Vital Signs (last 24 hours): Temp Pulse Resp BP Pulse Ox 98.3 F 83 18 125/77 96 01/28/19 12:20 01/28/19 12:20 01/28/19 12:20 01/28/19 12:20 01/28/19 12:20 - Medications Medications: Current Medications Acetaminophen/Codeine Phosphate (Tylenol/Codeine 300 Mg/30 Mg) 2 tab PO Q12 PRN PRN Reason: Pain, severe (8-10) Aspirin (Ecotrin) 81 mg PO DAILY [facility] Last Admin: 01/28/19 09:45 Dose: 81 mg Atenolol (Tenormin) 50 mg PO DAILY [facility] Last Admin: 01/28/19 09:47 Dose: 50 mg Atorvastatin Calcium (Lipitor) 10 mg PO DAILY [facility] Last Admin: 01/28/19 09:46 Dose: 10 mg Bacitracin (Bacitracin Oint) 1 applic TOP BID [facility] Last Admin: 01/28/19 09:41 Dose: 1 applic Benzocaine/Menthol (Cepacol Sore Throat) 1 susie PO Q3 PRN PRN Reason: Sore Throat Last Admin: 01/27/19 23:05 Dose: 1 susie Calcium Carbonate (Oscal) 500 mg PO DAILY [facility] Last Admin: 01/28/19 09:47 Dose: 500 mg Celecoxib (Celebrex) 200 mg PO BID [facility] Last Admin: 01/28/19 09:44 Dose: 200 mg Docusate Sodium (Colace) 100 mg PO DAILY [facility] Last Admin: 01/28/19 09:45 Dose: 100 mg Duloxetine HCl (Cymbalta) 30 mg PO Q12 PRN PRN Reason: Anxiety Last Admin: 01/27/19 08:48 Dose: 30 mg Enoxaparin Sodium (Lovenox) 40 mg SC DAILY [facility]; Protocol Last Admin: 01/28/19 09:42 Dose: 40 mg Hydrochlorothiazide (Microzide) 12.5 mg PO DAILY [facility] Last Admin: 01/28/19 09:46 Dose: 12.5 mg Ketorolac Tromethamine (Toradol) 30 mg IVP Q6 PRN PRN Reason: Pain, moderate (4-7) Last Admin: 01/27/19 22:09 Dose: 30 mg Ketorolac Tromethamine (Toradol) 15 mg IVP Q6 PRN PRN Reason: Pain, Mild (1-3) Last Admin: 01/27/19 09:01 Dose: 15 mg Lactulose (Enulose) 20 gm PO DAILY PRN PRN Reason: Constipation Last Admin: 01/28/19 09:52 Dose: 20 gm Morphine Sulfate (Morphine) 2 mg IVP Q4 PRN PRN Reason: Pain, severe (8-10) Last Admin: 01/27/19 02:58 Dose: 2 mg Multivitamins/Minerals (Therapeutic-M Tab) 1 tab PO DAILY [place] Last Admin: 01/28/19 09:48 Dose: 1 tab - Labs Labs: 01/28/19 04:25 01/28/19 04:25 PT 11.5 Seconds (9.8-13.1) 01/24/19 18:00 INR 1.0 01/24/19 18:00 APTT 29.3 Seconds (25.6-37.1) 01/24/19 18:00 - Respiratory Exam Respiratory Exam: Clear to Ausculation Bilateral - Cardiovascular Exam Cardiovascular Exam: REGULAR RHYTHM, +S1, +S2, Murmur - Additional Findings Additional findings: ECHOCARDIOGRAM REVIEWED AND THE PATIENT HAS HEAVY CALCIFICATION ON THE AV AND THE DOPPLER MEASUREMENTS ARE COMPATIBLE WITH POSSIBLE SEVERE AORTIC STENOSIS. THE LV SYSTOLIC FUNCTION IS GOOD. THERE IS ALSO MODERATE AORTIC REGURGITATION. Assessment and Plan - Assessment and Plan (Free Text) Assessment: S/P FALL WITH LEFT FEMUR FRACTURE AND S/P SURGICAL REPAIR HYPERTENSION HYPERLIPIDEMIA ECHOCARDIOGRAM WITH POSSIBLE SEVERE AORTIC REGURGITATION Plan: CONTINUE ASPIRIN, LOVENOX, ATORVASTATIN AND METOPROLOL THE ECHOCARIOGRAM FINDINGS WERE REVIEWED WITH THE PATIENT AND A CARDIAC CATHETERIZATION WAS RECOMMENDED TO HER AFTER REHAB FOR HER FEMUR FRACTURE TO BETTER ASSESS THE AV AND THE POSSIBLE NEED FOR AVR
[2019-01-29 05:48] LABS: HEMOGLOBIN 9.7 g/dL (12.0-16.0); MEAN CELL VOLUME 92.9 fl (81.0-99.0); MEAN CORPUSCULAR HEMOGLOBIN 31.8 pg (27.0-31.0); MEAN CORPUSCULAR HGB CONC 34.2 g/dL (33.0-37.0); RBC 3.04 Mil/uL (3.80-5.20); RED CELL DISTRIBUTION WIDTH 13.6 % (11.5-14.5)
[2019-01-29 06:19] LABS: BLOOD UREA NITROGEN 15 mg/dl (7-17); CALCIUM 8.6 mg/dL (8.4-10.2); GFR NON-AFRICAN AMERICAN > 60
[2019-01-29] MEDS: Bacitracin OINT 15GM TOP SCH ×2 (08:25→16:47)
[2019-01-29] MEDS: Multivitamin With Minerals Tab PO SCH (08:27)
--- NOTE | 2019-01-29 10:50 | CP.PCM.PN ---
Subjective - Date & Time of Evaluation Date of Evaluation: 01/29/19 Time of Evaluation: 08:45 - Subjective Subjective: NO CHEST PAIN OR SOB Objective - Vital Signs/Intake and Output Vital Signs (last 24 hours): Temp Pulse Resp BP Pulse Ox 98.4 F 88 18 151/80 H 97 01/29/19 08:00 01/29/19 08:25 01/29/19 08:00 01/29/19 08:25 01/29/19 08:00 - Medications Medications: Current Medications Acetaminophen/Codeine Phosphate (Tylenol/Codeine 300 Mg/30 Mg) 2 tab PO Q12 PRN PRN Reason: Pain, severe (8-10) Aspirin (Ecotrin) 81 mg PO DAILY [facility] Last Admin: 01/29/19 08:30 Dose: 81 mg Atenolol (Tenormin) 50 mg PO DAILY [facility] Last Admin: 01/29/19 08:25 Dose: 50 mg Atorvastatin Calcium (Lipitor) 10 mg PO DAILY [facility] Last Admin: 01/29/19 08:29 Dose: 10 mg Bacitracin (Bacitracin Oint) 1 applic TOP BID [facility] Last Admin: 01/29/19 08:25 Dose: 1 applic Benzocaine/Menthol (Cepacol Sore Throat) 1 susie PO Q3 PRN PRN Reason: Sore Throat Last Admin: 01/27/19 23:05 Dose: 1 susie Calcium Carbonate (Oscal) 500 mg PO DAILY [facility] Last Admin: 01/29/19 08:32 Dose: 500 mg Celecoxib (Celebrex) 200 mg PO BID [facility] Last Admin: 01/29/19 08:28 Dose: 200 mg Docusate Sodium (Colace) 100 mg PO DAILY [facility] Last Admin: 01/29/19 08:32 Dose: Not Given Duloxetine HCl (Cymbalta) 30 mg PO Q12 PRN PRN Reason: Anxiety Last Admin: 01/27/19 08:48 Dose: 30 mg Enoxaparin Sodium (Lovenox) 80 mg SC DAILY [facility]; Protocol Hydrochlorothiazide (Microzide) 12.5 mg PO DAILY [facility] Last Admin: 01/29/19 08:29 Dose: 12.5 mg Ketorolac Tromethamine (Toradol) 30 mg IVP Q6 PRN PRN Reason: Pain, moderate (4-7) Last Admin: 01/28/19 21:30 Dose: 30 mg Ketorolac Tromethamine (Toradol) 15 mg IVP Q6 PRN PRN Reason: Pain, Mild (1-3) Last Admin: 01/27/19 09:01 Dose: 15 mg Lactulose (Enulose) 20 gm PO DAILY PRN PRN Reason: Constipation Last Admin: 01/28/19 09:52 Dose: 20 gm Morphine Sulfate (Morphine) 2 mg IVP Q4 PRN PRN Reason: Pain, severe (8-10) Last Admin: 01/27/19 02:58 Dose: 2 mg Multivitamins/Minerals (Therapeutic-M Tab) 1 tab PO DAILY [place] Last Admin: 01/29/19 08:27 Dose: 1 tab - Labs Labs: 01/29/19 04:35 01/29/19 04:35 PT 11.5 Seconds (9.8-13.1) 01/24/19 18:00 INR 1.0 01/24/19 18:00 APTT 29.3 Seconds (25.6-37.1) 01/24/19 18:00 - Respiratory Exam Respiratory Exam: Clear to Ausculation Bilateral - Cardiovascular Exam Cardiovascular Exam: REGULAR RHYTHM, +S1, +S2, Murmur - Extremities Exam Additional comments: NO LE EDEMA Assessment and Plan - Assessment and Plan (Free Text) Assessment: S/P FEMUR FRACTURE SURGERY AORTIC STENOSIS HYPERTENSION HYPERLIPIDEMIA Plan: CONTINUE ASPIRIN, LOVENOX, ATORVASTATIN AND ATENOLOL FOR REHAB THE PATIENT ISN'T SURE AT THIS TIME IF SHE WANTS TO GO FOR A CARDIAC CATH AND POSSIBLE AVR-SHE STATES SHE WILL THINK IT OVER WHILE IN REHAB AND UNTIL SHE RECOVERS FROM HER ORTHOPEDIC SURGERY-SHE WAS ASKED TO MAKE AN APPOINTMENT AT AT TIME WITH ME WHEN SHE IS BETTER AND DISCUSS IT AGAIN IF SHE SO DESIRES
[2019-01-29] MEDS: Enoxaparin 60 mg Syringe SC SCH ×2 (12:30→12:43)
--- NOTE | 2019-01-29 12:37 | CP.PCM.PN ---
Subjective - Date & Time of Evaluation Date of Evaluation: 01/29/19 Time of Evaluation: 07:32 - Subjective Subjective: Patient seen and examined today at bedside, feeling better, mild pain but well controlled with meds. No acute overnight events. Waiting auth for acute rehab Objective - Vital Signs/Intake and Output Vital Signs (last 24 hours): Temp Pulse Resp BP Pulse Ox 97.9 F 85 18 131/64 93 L 01/29/19 12:00 01/29/19 12:00 01/29/19 12:00 01/29/19 12:00 01/29/19 12:00 - Medications Medications: Current Medications Acetaminophen/Codeine Phosphate (Tylenol/Codeine 300 Mg/30 Mg) 2 tab PO Q12 PRN PRN Reason: Pain, severe (8-10) Aspirin (Ecotrin) 81 mg PO DAILY [facility] Last Admin: 01/29/19 08:30 Dose: 81 mg Atenolol (Tenormin) 50 mg PO DAILY [facility] Last Admin: 01/29/19 08:25 Dose: 50 mg Atorvastatin Calcium (Lipitor) 10 mg PO DAILY [facility] Last Admin: 01/29/19 08:29 Dose: 10 mg Bacitracin (Bacitracin Oint) 1 applic TOP BID [facility] Last Admin: 01/29/19 08:25 Dose: 1 applic Benzocaine/Menthol (Cepacol Sore Throat) 1 susie PO Q3 PRN PRN Reason: Sore Throat Last Admin: 01/27/19 23:05 Dose: 1 susie Calcium Carbonate (Oscal) 500 mg PO DAILY [facility] Last Admin: 01/29/19 08:32 Dose: 500 mg Celecoxib (Celebrex) 200 mg PO BID [facility] Last Admin: 01/29/19 08:28 Dose: 200 mg Docusate Sodium (Colace) 100 mg PO DAILY [facility] Last Admin: 01/29/19 08:32 Dose: Not Given Duloxetine HCl (Cymbalta) 30 mg PO Q12 PRN PRN Reason: Anxiety Last Admin: 01/27/19 08:48 Dose: 30 mg Enoxaparin Sodium (Lovenox) 40 mg SC DAILY [facility]; Protocol Last Admin: 01/29/19 12:30 Dose: 40 mg Hydrochlorothiazide (Microzide) 12.5 mg PO DAILY [facility] Last Admin: 01/29/19 08:29 Dose: 12.5 mg Ketorolac Tromethamine (Toradol) 30 mg IVP Q6 PRN PRN Reason: Pain, moderate (4-7) Last Admin: 01/28/19 21:30 Dose: 30 mg Ketorolac Tromethamine (Toradol) 15 mg IVP Q6 PRN PRN Reason: Pain, Mild (1-3) Last Admin: 01/27/19 09:01 Dose: 15 mg Lactulose (Enulose) 20 gm PO DAILY PRN PRN Reason: Constipation Last Admin: 01/28/19 09:52 Dose: 20 gm Morphine Sulfate (Morphine) 2 mg IVP Q4 PRN PRN Reason: Pain, severe (8-10) Last Admin: 01/27/19 02:58 Dose: 2 mg Multivitamins/Minerals (Therapeutic-M Tab) 1 tab PO DAILY [place] Last Admin: 01/29/19 08:27 Dose: 1 tab - Labs Labs: 01/29/19 04:35 01/29/19 04:35 PT 11.5 Seconds (9.8-13.1) 01/24/19 18:00 INR 1.0 01/24/19 18:00 APTT 29.3 Seconds (25.6-37.1) 01/24/19 18:00 - Constitutional Appears: No Acute Distress - Respiratory Exam Respiratory Exam: Clear to Ausculation Bilateral, NORMAL BREATHING PATTERN - Cardiovascular Exam Cardiovascular Exam: REGULAR RHYTHM, Murmur. absent: Tachycardia - GI/Abdominal Exam GI & Abdominal Exam: Soft, Normal Bowel Sounds. absent: Distended - Extremities Exam Additional comments: LLE: mild edema on thigh, dressing in place no visible drainage. Noted tear to skin fold under pannus, painful per pt. Able to move ankle/toes, sensation intact +DP/PT. - Neurological Exam Neurological Exam: Alert, Awake, CN II-XII Intact, Oriented x3 - Skin Skin Exam: Dry, Warm Additional comments: Large serous tension blister proximal wound, mild clear drainage noted, no erythema, bruises noted. Assessment and Plan - Assessment and Plan (Free Text) Assessment: 78 yo female with PMHx of HTN, HLD, SLE, Seizure, R breast Cancer and osteoporosis, is admitted for left femur displaced fracture, s/p IM nail. POD 4 XR L femur: Displaced left femoral diaphysis fracture. Questionable hematoma adjacent to the fracture site. CT of LLE: displaced and angulated fracture involving the proximal mid L femur, soft tissue hematoma suspected. PLAN: Displaced Left Femoral shaft Fracture - POD 4 s/p IM nail - Pain management: toradol for mild and moderate, Morphine for severe. - Orthopedic Surgery consult, Dr Alvarez. - PT/OT - Planing for d/c to Acute rehab, waiting auth. Acute blood loss anemia - H/h 9.7/26.9 - s/p 2 units PRBC - asymptomatic Constipation possible medicine induced - Continue colace - lactulose 20 prn constipation ?SLE/?RA - Chronic - cont Home meds HTN - Chronic, controlled - c/ home meds HLD - Chronic - Home meds resumed Hx of Seizure - Last episode 2 years ago. -Not on chronic medication anymore. DVT Prophylaxis - Lovenox sc daily - SCD for R lower leg only Case seen and examined with Dr Corby Gilliam PGY 2
--- NOTE | 2019-01-29 12:43 | CP.PCM.PN ---
Subjective - Date & Time of Evaluation Date of Evaluation: 01/29/19 Time of Evaluation: 12:39 - Subjective Subjective: Patient states she is feeling better. Denies CP/SOB/dizziness. Objective - Vital Signs/Intake and Output Vital Signs (last 24 hours): Temp Pulse Resp BP Pulse Ox 97.9 F 85 18 131/64 93 L 01/29/19 12:00 01/29/19 12:00 01/29/19 12:00 01/29/19 12:00 01/29/19 12:00 - Medications Medications: Current Medications Acetaminophen/Codeine Phosphate (Tylenol/Codeine 300 Mg/30 Mg) 2 tab PO Q12 PRN PRN Reason: Pain, severe (8-10) Aspirin (Ecotrin) 81 mg PO DAILY [facility] Last Admin: 01/29/19 08:30 Dose: 81 mg Atenolol (Tenormin) 50 mg PO DAILY [facility] Last Admin: 01/29/19 08:25 Dose: 50 mg Atorvastatin Calcium (Lipitor) 10 mg PO DAILY [facility] Last Admin: 01/29/19 08:29 Dose: 10 mg Bacitracin (Bacitracin Oint) 1 applic TOP BID [facility] Last Admin: 01/29/19 08:25 Dose: 1 applic Benzocaine/Menthol (Cepacol Sore Throat) 1 susie PO Q3 PRN PRN Reason: Sore Throat Last Admin: 01/27/19 23:05 Dose: 1 susie Calcium Carbonate (Oscal) 500 mg PO DAILY [facility] Last Admin: 01/29/19 08:32 Dose: 500 mg Celecoxib (Celebrex) 200 mg PO BID [facility] Last Admin: 01/29/19 08:28 Dose: 200 mg Docusate Sodium (Colace) 100 mg PO DAILY [facility] Last Admin: 01/29/19 08:32 Dose: Not Given Duloxetine HCl (Cymbalta) 30 mg PO Q12 PRN PRN Reason: Anxiety Last Admin: 01/27/19 08:48 Dose: 30 mg Enoxaparin Sodium (Lovenox) 40 mg SC DAILY [facility]; Protocol Hydrochlorothiazide (Microzide) 12.5 mg PO DAILY [facility] Last Admin: 01/29/19 08:29 Dose: 12.5 mg Ketorolac Tromethamine (Toradol) 30 mg IVP Q6 PRN PRN Reason: Pain, moderate (4-7) Last Admin: 01/28/19 21:30 Dose: 30 mg Ketorolac Tromethamine (Toradol) 15 mg IVP Q6 PRN PRN Reason: Pain, Mild (1-3) Last Admin: 01/27/19 09:01 Dose: 15 mg Lactulose (Enulose) 20 gm PO DAILY PRN PRN Reason: Constipation Last Admin: 01/28/19 09:52 Dose: 20 gm Morphine Sulfate (Morphine) 2 mg IVP Q4 PRN PRN Reason: Pain, severe (8-10) Last Admin: 01/27/19 02:58 Dose: 2 mg Multivitamins/Minerals (Therapeutic-M Tab) 1 tab PO DAILY [place] Last Admin: 01/29/19 08:27 Dose: 1 tab - Labs Labs: 01/29/19 04:35 01/29/19 04:35 PT 11.5 Seconds (9.8-13.1) 01/24/19 18:00 INR 1.0 01/24/19 18:00 APTT 29.3 Seconds (25.6-37.1) 01/24/19 18:00 - Extremities Exam Additional comments: Right hip: dressing changed, incision intact, large serous tension blister to prox wound, active serous drainage noted. No erythema, moderate swelling, calves soft NT neg homans +DP/PT pulses, sensation intact +DP/PT pulses Assessment and Plan (1) Left femoral shaft fracture Assessment & Plan: POD# 4 s/p IM nail PT/OT d/c planning daily dressing changes lovenox 40mg SQ daily is proph indicated dose orthopedically stable d/w Dr. Alvarez, agrees wt above Status: Acute (2) Acute blood loss anemia Assessment & Plan: stable Status: Acute
[2019-01-29 21:12] VITALS: RESP 18
[2019-01-30 05:42] LABS: HEMOGLOBIN 9.3 g/dL (12.0-16.0); MEAN CELL VOLUME 92.4 fl (81.0-99.0); MEAN CORPUSCULAR HEMOGLOBIN 31.4 pg (27.0-31.0); RBC 2.95 Mil/uL (3.80-5.20); RED CELL DISTRIBUTION WIDTH 13.7 % (11.5-14.5); WHITE BLOOD COUNT 5.7 K/uL (4.8-10.8)
[2019-01-30 06:03] LABS: BLOOD UREA NITROGEN 17 mg/dl (7-17); CALCIUM 8.3 mg/dL (8.4-10.2); GFR NON-AFRICAN AMERICAN > 60
[2019-01-30] MEDS: Bacitracin OINT 15GM TOP SCH (08:26)
[2019-01-30] MEDS: Multivitamin With Minerals Tab PO SCH (08:39)
[2019-01-30] MEDS ORDERED: Enoxaparin 40 mg Syringe SC SCH (09:00)
[2019-01-30] MEDS ORDERED: Silver Sulfadiazine 1% CREAM (50 gm) TOP SCH (09:00)
--- NOTE | 2019-01-30 11:53 | CP.PCM.DIS ---
Provider - Provider Date of Admission: 01/24/19 18:39 Attending physician: George Tavarez MD Consults: 01/24/19 20:01 Orthopedic Consult Stat Comment: Consulting Provider: Warren Alvarez Consulting Physician: Warren Alvarez Reason for Consult: L femur displaced fracture 01/25/19 07:52 Social Work Referral Routine Comment: protocol Physician Instructions: Reason For Exam: discharge planning 01/25/19 08:06 Cardiology Consult Routine Comment: Consulting Provider: Liborio Dixon Consulting Physician: Liborio Dixon Reason for Consult: preop cardiac clearance 01/28/19 17:16 Wound Care [Nursing Referral for Wound Care] Routine Comment: Physician Instructions: Reason For Exam: excoriation abdominal fold 01/28/19 18:39 Wound Care [Nursing Referral for Wound Care] Routine Comment: Physician Instructions: Reason For Exam: left hip blister Time Spent in preparation of Discharge (in minutes): 37 Diagnosis - Discharge Diagnosis (1) Left femoral shaft fracture Status: Acute (2) Acute blood loss anemia Status: Acute (3) Hypertension Status: Acute (4) Constipation Status: Acute Hospital Course - Lab Results Lab Results: Most Recent Lab Values WBC 5.7 K/uL (4.8-10.8) 01/30/19 05:15 RBC 2.95 Mil/uL (3.80-5.20) L 01/30/19 05:15 Hgb 9.3 g/dL (12.0-16.0) L 01/30/19 05:15 Hct 27.3 % (34.0-47.0) L 01/30/19 05:15 MCV 92.4 fl (81.0-99.0) 01/30/19 05:15 MCH 31.4 pg (27.0-31.0) H 01/30/19 05:15 MCHC 34.0 g/dL (33.0-37.0) 01/30/19 05:15 RDW 13.7 % (11.5-14.5) 01/30/19 05:15 Plt Count 119 K/uL (130-400) L D 01/30/19 05:15 MPV 10.8 fl (7.2-11.7) 01/28/19 04:25 Neut % (Auto) 71.8 % (50.0-75.0) 01/28/19 04:25 Lymph % (Auto) 14.4 % (20.0-40.0) L 01/28/19 04:25 [place] % (Auto) 11.7 % (0.0-10.0) H 01/28/19 04:25 Eos % (Auto) 1.8 % (0.0-4.0) 01/28/19 04:25 Baso % (Auto) 0.3 % (0.0-2.0) 01/28/19 04:25 Neut # (Auto) 4.9 K/uL (1.8-7.0) 01/28/19 04:25 Lymph # (Auto) 1.0 K/uL (1.0-4.3) 01/28/19 04:25 [place] # (Auto) 0.8 K/uL (0.0-0.8) 01/28/19 04:25 Eos # (Auto) 0.1 K/uL (0.0-0.7) 01/28/19 04:25 Baso # (Auto) 0.0 K/uL (0.0-0.2) 01/28/19 04:25 PT 11.5 Seconds (9.8-13.1) 01/24/19 18:00 INR 1.0 01/24/19 18:00 APTT 29.3 Seconds (25.6-37.1) 01/24/19 18:00 Sodium 139 mmol/l (132-148) 01/30/19 05:15 Potassium 3.6 MMOL/L (3.6-5.0) 01/30/19 05:15 Chloride 105 mmol/L (98-107) 01/30/19 05:15 Carbon Dioxide 30 mmol/L (22-30) 01/30/19 05:15 Anion Gap 8 (10-20) L 01/30/19 05:15 BUN 17 mg/dl (7-17) 01/30/19 05:15 Creatinine 0.6 mg/dl (0.7-1.2) L 01/30/19 05:15 Est GFR ( Amer) > 60 01/30/19 05:15 Est GFR (Non-Af Amer) > 60 01/30/19 05:15 Random Glucose 89 mg/dL (65-105) 01/30/19 05:15 Calcium 8.3 mg/dL (8.4-10.2) L 01/30/19 05:15 Total Bilirubin 0.4 mg/dl (0.2-1.3) 01/24/19 18:00 AST 33 U/L (14-36) 01/24/19 18:00 ALT 36 U/L (9-52) 01/24/19 18:00 Alkaline Phosphatase 78 U/L (38-126) 01/24/19 18:00 Troponin I < 0.0120 ng/mL (0.00-0.120) 01/26/19 04:45 Total Protein 6.5 G/DL (6.3-8.2) 01/24/19 18:00 Albumin 3.7 g/dL (3.5-5.0) 01/24/19 18:00 Globulin 2.9 gm/dL (2.2-3.9) 01/24/19 18:00 Albumin/Globulin Ratio 1.3 (1.0-2.1) 01/24/19 18:00 Urine Color Yellow (YELLOW) 01/25/19 08:10 Urine Clarity Clear (Clear) 01/25/19 08:10 Urine pH 6.0 (5.0-8.0) 01/25/19 08:10 Ur Specific [place] 1.014 (1.003-1.030) 01/25/19 08:10 Urine Protein Negative mg/dL (NEGATIVE) 01/25/19 08:10 Urine Glucose (UA) Neg mg/dL (NEGATIVE) 01/25/19 08:10 Urine Ketones Negative mg/dL (NEGATIVE) 01/25/19 08:10 Urine Blood Negative (NEGATIVE) 01/25/19 08:10 Urine Nitrate Negative (NEGATIVE) 01/25/19 08:10 Urine Bilirubin Negative (NEGATIVE) 01/25/19 08:10 Urine Urobilinogen 0.2-1.0 mg/dL (0.2-1.0) 01/25/19 08:10 Ur Leukocyte Esterase Neg Anders/uL (Negative) 01/25/19 08:10 Urine RBC (Auto) 1 /hpf (0-3) 01/25/19 08:10 Urine Microscopic WBC 1 /hpf (0-5) 01/25/19 08:10 Ur Squamous Epith Cells < 1 /hpf (0-5) 01/25/19 08:10 Blood Type AB POSITIVE 01/24/19 18:00 Antibody Screen Negative 01/24/19 18:00 Crossmatch See Detail 01/24/19 18:00 BBK History Checked Patient has bt 01/24/19 18:00 - Hospital Course Hospital Course: 78 yo female with PMHx of HTN, HLD, SLE, Seizure, R breast Cancer and osteoporosis, is admitted for left femur displaced fracture, s/p IM nail POD 5. XR L femur: Displaced left femoral diaphysis fracture. Questionable hematoma adjacent to the fracture site. CT of LLE: displaced and angulated fracture involving the proximal mid L femur, soft tissue hematoma suspected. S/p 2 units PRBC due to acute blood loss anemia H/H stable 9.3/27.1. Pain management: toradol for mild and moderate, Morphine for severe. Orthopedic Surgery consult, Dr Alvarez. PT/OT. Patient now discharged to Acute rehab at [facility] to complete PT/OT, patient stable at discharge time. Discharge Exam - Head Exam Head Exam: NORMAL INSPECTION - Respiratory Exam Respiratory Exam: Clear to PA & Lateral, NORMAL BREATHING PATTERN - Cardiovascular Exam Cardiovascular Exam: REGULAR RHYTHM, +S1, +S2. absent: Tachycardia - GI/Abdominal Exam GI & Abdominal Exam: Normal Bowel Sounds, Soft. absent: Distended, Tenderness - Extremities Exam Additional comments: LLE: mild edema on thigh, dressing in place socked with serosanguineous drainage. Able to move ankle/toes, sensation intact +DP/PT. - Neurological Exam Neurological exam: Alert, Oriented x3 - Skin Skin Exam: Dry, Warm Additional comments: Large serous tension blister proximal wound, mild clear drainage noted, no erythema or bruises noted. Discharge Plan - Follow Up Plan Condition: FAIR Disposition: REHAB FACILITY/REHAB UNIT Instructions: Femur Fracture (DC) Referrals: Warren Alvarez MD [Staff Provider] - George Tavarez MD [Family Provider] -
[2019-01-30 11:57] VITALS: BP 114/74; PULSE 80; TEMP 98.1; O2SAT 97
--- NOTE | 2019-01-30 14:28 | CP.PCM.PN ---
Subjective - Date & Time of Evaluation Date of Evaluation: 01/30/19 Time of Evaluation: 12:00 - Subjective Subjective: Patient seen and examined at bedside comfortable. Pain well controlled. Able to take 5 steps with PT today. No other complaints. Denies CP/SOB/fever/dizziness. Objective - Vital Signs/Intake and Output Vital Signs (last 24 hours): Temp Pulse Resp BP Pulse Ox 98.1 F 80 18 114/74 97 01/30/19 11:55 01/30/19 11:55 01/30/19 11:55 01/30/19 11:55 01/30/19 11:55 - Labs Labs: 01/30/19 05:15 01/30/19 05:15 PT 11.5 Seconds (9.8-13.1) 01/24/19 18:00 INR 1.0 01/24/19 18:00 APTT 29.3 Seconds (25.6-37.1) 01/24/19 18:00 - Extremities Exam Additional comments: LLE: distal dressings CDI, proximal dressings with moderate serous drainage proximal wound intact with jostin, minimal serous drainage moderate swelling to thigh sensation intact SP/DP/TN motor intact EHl/FHL/TA/G pedal pulse intact calves soft NT Assessment and Plan (1) Left femoral shaft fracture Assessment & Plan: POD# 5 s/p L femur fx ORIF with IM nail -pain control -PT/OT PWB -Switch lovenox to ASA 325 BID due to serous drainage -compressive dressings applied to proximal wound -will follow -above d/w Dr. Alvarez in agreement Status: Acute
== END 2019-01-30 14:12 | DRG 481 ==
LOC: H.ER 15:57 → H.ERHOLD 18:39 → H.MEDSURG1 22:47 → H.TEL 01-25 21:18
PROVIDERS: ADMIT Family Medicine; ATTEND Family Medicine
PROC: 3E0T3BZ Introduction of Anesthetic Agent into Peripheral Nerves and Plexi, Percutaneous Approach (ICD-10-PCS; 2019-01-25)
PROC: 3E0T33Z Introduction of Anti-inflammatory into Peripheral Nerves and Plexi, Percutaneous Approach (ICD-10-PCS; 2019-01-25)
PROC: 30233N1 Transfusion of Nonautologous Red Blood Cells into Peripheral Vein, Percutaneous Approach (ICD-10-PCS; 2019-01-25)
PROC: 0QS906Z Reposition Left Femoral Shaft with Intramedullary Internal Fixation Device, Open Approach (ICD-10-PCS; principal; 2019-01-25 12:30)
PROC: 0QU90JZ Supplement Left Femoral Shaft with Synthetic Substitute, Open Approach (ICD-10-PCS; 2019-01-25 12:30)
DX: S72.352A Displaced comminuted fracture of shaft of left femur, initial encounter for closed fracture (principal); D62 Acute posthemorrhagic anemia; M32.9 Systemic lupus erythematosus, unspecified; E66.01 Morbid (severe) obesity due to excess calories; Z68.33 Body mass index [BMI] 33.0-33.9, adult; I35.0 Nonrheumatic aortic (valve) stenosis; M06.9 Rheumatoid arthritis, unspecified; M81.0 Age-related osteoporosis without current pathological fracture; W18.2XXA Fall in (into) shower or empty bathtub, initial encounter; K59.03 Drug induced constipation; I10 Essential (primary) hypertension; E78.5 Hyperlipidemia, unspecified; R07.89 Other chest pain; Z85.3 Personal history of malignant neoplasm of breast; Z87.891 Personal history of nicotine dependence; Z79.82 Long term (current) use of aspirin; Y93.E1 Activity, personal bathing and showering; Y92.002 Bathroom of unspecified non-institutional (private) residence as the place of occurrence of the external cause

== ENCOUNTER 2019-01-30 12:31 | Inpatient (IN) | payer MEDICARE, MEDICAID ==
[2019-01-30 14:06] VITALS: BMI 33.3
[2019-01-30] MEDS ORDERED: Benzocaine/Menthol SPRAY TOP PRN (15:06)
[2019-01-30] MEDS: Acetaminophen-Codeine 300/30 mg Tab PO PRN (16:57)
[2019-01-30] MEDS: Silver Sulfadiazine 1% CREAM (50 gm) TOP SCH (16:59)
[2019-01-30] MEDS: Bacitracin OINT 15GM TOP SCH (17:00)
--- NOTE | 2019-01-30 18:03 | PCM.CPAPS ---
History of Present Illness - History of Present Illness History of Present Illness: Dr Matson PMR consultation on Evelio Torres, born 1940 who has been admitted to [facility] acute inpatient rehabilitation following a mechanical fall with left femur fracture and underwent ORIF. POD #5. Left leg swelling, no doppler t o this point Review of Systems - Constitutional Constitutional: absent: Anorexia, Chills - EENT Eyes: absent: Change in Vision Ears: absent: Ear Discharge, Ear Pain Nose/Mouth/Throat: absent: Nasal Congestion, Nasal Discharge, Dysphagia - Cardiovascular Cardiovascular: absent: Chest Pain - Respiratory Respiratory: absent: Dyspnea, Hemoptysis - Gastrointestinal Gastrointestinal: absent: Constipation - Musculoskeletal Musculoskeletal: absent: Numbness - Integumentary Integumentary: absent: Bleeding Lesions - Neurological Neurological: absent: Abnormal Movements, Numbness Past Patient History - Past Medical History & Family History Past Medical History?: Yes - Past Social History Smoking Status: Never Smoked Chewing Tobacco Use: No Alcohol: None Drugs: Denies Home Situation {Lives}: With Family (elevator) - CARDIAC Hx Cardiac Disorders: Yes Hx Hypertension: Yes - PULMONARY Hx Respiratory Disorders: Yes Hx Sleep Apnea: Yes - NEUROLOGICAL Hx Neurological Disorder: No - HEENT Hx HEENT Problems: Yes Hx Cataracts: Yes - RENAL Hx Chronic Kidney Disease: No - ENDOCRINE/METABOLIC Hx Endocrine Disorders: Yes Hx Systemic Lupus Erythematosus: Yes - HEMATOLOGICAL/ONCOLOGICAL Hx Blood Disorders: No Hx AIDS: No Hx Human Immunodeficiency Virus (HIV): No - INTEGUMENTARY Hx Dermatological Problems: No - MUSCULOSKELETAL/RHEUMATOLOGICAL Hx Musculoskeletal Disorders: Yes Hx Falls: Yes Hx Osteoporosis: Yes Hx Rheumatoid Arthritis: Yes (right shoulder) - GASTROINTESTINAL Hx Gastrointestinal Disorders: No - GENITOURINARY/GYNECOLOGICAL Hx Genitourinary Disorders: Yes Other/Comment: bladder surgery, breast ca w/ radiation theraphy - PSYCHIATRIC Hx Psychophysiologic Disorder: No Hx Substance Use: No - SURGICAL HISTORY Hx Surgeries: Yes Hx Appendectomy: Yes Other/Comment: BILATERAL CATARACT SURGERY. right brest lumpectomy - ANESTHESIA Hx Anesthesia: Yes Hx Anesthesia Reactions: No Hx Malignant Hyperthermia: No Meds Allergies/Adverse Reactions: Allergies Allergy/AdvReac Type Severity Reaction Status Date / Time milk AdvReac DIARRHEA Verified 01/25/19 00:39 - Medications Medications: Current Medications Acetaminophen (Tylenol 325mg Tab) 650 mg PO Q4 PRN PRN Reason: Pain, Mild (1-3) Acetaminophen/Codeine Phosphate (Tylenol/Codeine 300 Mg/30 Mg) 2 tab PO Q12 PRN PRN Reason: Pain, severe (8-10) Last Admin: 01/30/19 16:57 Dose: 2 tab Aspirin (Ecotrin) 325 mg PO BID [facility] Atenolol (Tenormin) 50 mg PO DAILY [facility] Atorvastatin Calcium (Lipitor) 10 mg PO DAILY [facility] Bacitracin (Bacitracin Oint) 1 applic TOP BID [facility] Last Admin: 01/30/19 17:00 Dose: 1 applic Benzocaine/Menthol (Dermoplast) 1 sprays TOP PRN PRN PRN Reason: Excoriation Celecoxib (Celebrex) 200 mg PO BID [facility] Last Admin: 01/30/19 17:00 Dose: 200 mg Docusate Sodium (Colace) 100 mg PO DAILY [facility] Last Admin: 01/30/19 16:59 Dose: Not Given Duloxetine HCl (Cymbalta) 30 mg PO Q12 PRN PRN Reason: Anxiety Home Med (Calcium Carbonate [Caltrate]) 1 tab PO DAILY [facility] Home Med (Turmeric Root Extract [Turmeric]) 500 mg PO DAILY [facility] Hydrochlorothiazide (Microzide) 12.5 mg PO DAILY [facility] Ketorolac Tromethamine (Toradol) 30 mg IVP Q6 PRN PRN Reason: Pain, moderate (4-7) Morphine Sulfate (Morphine) 2 mg IVP Q4 PRN PRN Reason: Pain, severe (8-10) Multivitamins/Minerals (Therapeutic-M Tab) 1 tab PO DAILY [facility] Silver Sulfadiazine (Silvadene 1% 50 Gm) 1 applic TOP BID [facility] Last Admin: 01/30/19 16:59 Dose: 1 applic Physical Exam - Constitutional Appears: Non-toxic - Head Exam Head Exam: ATRAUMATIC, NORMAL INSPECTION, NORMOCEPHALIC - Eye Exam Eye Exam: EOMI - ENT Exam ENT Exam: Mucous Membranes Moist - Respiratory Exam Respiratory Exam: NORMAL BREATHING PATTERN - Cardiovascular Exam Cardiovascular Exam: REGULAR RHYTHM, Systolic Murmur (4/6) - GI/Abdominal Exam GI & Abdominal Exam: absent: Distended - Extremities Exam Extremities exam: Negative for: calf tenderness (but left LE swelling) - Neurological Exam Neurological exam: Alert, CN II-XII Intact, Oriented x3 - Psychiatric Exam Psychiatric exam: Normal Affect, Normal Mood - Skin Skin Exam: Warm (bandages with no strikethrough) Results - Vital Signs Recent Vital Signs: Last Vital Signs Temp 98.4 F 01/30/19 17:00 Pulse 99 H 01/30/19 17:00 Resp 20 01/30/19 17:00 BP 134/62 01/30/19 17:00 Pulse Ox 97 01/30/19 17:00 Assessment & Plan - Assessment and Plan (Free Text) Assessment: left hip fracture and ORIF Impairment code: 08.1 PT/OT to continue to help increase functional independence Team conference for d/c planning Pain: controlled Vascular: left LE swelling, will order doppler GI: No evidence of constipation or diarrhea Patient is an excellent acute rehabilitation candidate and will have focused pain management, wound care, PT, OT and recreational therapy to help facilitate a safe and appropriate d/c plan - Functional Status Prior to Admission: independent Current Status: Needs assistance for ADLs and ambulating Impairment Code: 08.1
--- NOTE | 2019-01-30 18:10 | PCM.OPOC ---
Physiatry Overall Plan of Care - Overall Plan of Care Estimated Length of Stay in Weeks: 3 Rehab Impairment: Mobility, Gait, Balance, Coordination Etiologic Diagnosis: Hip/Knee Surgery Rehab/Medical Prognosis: Fair - Anticipated Interventions Physical Therapy:: Yes Number of Hours: 1.5 Number of times per week: 6 Number of Week(s) Duration: 3 Occupational Therapy:: Yes Number of Hours: 1.5 Number of times per week: 6 Number of Week(s) Duration: 3 Speech Therapy:: No Recreational Therapy:: Yes Number of Hours: 1 Number of times per week: 5 Number of Week(s) Duration: 3 - Therapy Goals Bed Mobility: Supervision Ambulation: Supervision Functional Positional Changes:: Supervision - Functional Status Prior to Admission: independent Current Status: needs assistance with ADLs and ambulating - Functional Outcomes Functional Outcomes: not yet in therapy - Discharge Plan Identification of Barriers to Discharge: Home Situation Discharge Destination: Home
[2019-01-30] MEDS ORDERED: Acetaminophen-Codeine 300/30 mg Tab PO STA (22:17)
[2019-01-31 06:34] LABS: HEMOGLOBIN 9.2 g/dL (12.0-16.0); MEAN CORPUSCULAR HGB CONC 32.8 g/dL (33.0-37.0); RBC 2.95 Mil/uL (3.80-5.20); WHITE BLOOD COUNT 6.3 K/uL (4.8-10.8)
[2019-01-31 06:39] LABS: MEAN CELL VOLUME 94.7 fl (81.0-99.0)
--- NOTE | 2019-01-31 06:48 | CP.PCM.HP ---
History of Present Illness - History of Present Illness History of Present Illness: 78 yo female with PMHx of HTN, HLD, SLE, Seizure, R breast Cancer and osteoporosis, is admitted for left femur displaced fracture, s/p IM nail POD 6. S/p 2 units PRBC due to acute blood loss anemia H/H stable 9.3/27.1. Pain management: toradol for mild and moderate, Morphine for severe. Orthopedic Surgery consult, Dr Alvarez. PT/OT. Patient now admitted to Acute rehab at [facility] to complete PT/OT. PMD: Dr George Tavarez PMHx: HTN, HLD, Lupus, Osteoporosis, Hx of R Breast Ca, hx of seizures PSH: Cholecystectomy, Right lumpectomy SHx: denies tobacco, alcohol or rec drugs. NKDA Meds: per medical records SH: no etoh, tobacco or ilicit drugs use Present on Admission - Present on Admission Any Indicators Present on Admission: No Review of Systems - Review of Systems All systems: reviewed and no additional remarkable complaints except (HPI) Past Patient History - Past Medical History & Family History Past Medical History?: Yes - Past Social History Smoking Status: Never Smoked Chewing Tobacco Use: No Alcohol: None Drugs: Denies Home Situation {Lives}: With Family (elevator) - CARDIAC Hx Cardiac Disorders: Yes Hx Hypertension: Yes - PULMONARY Hx Respiratory Disorders: Yes Hx Sleep Apnea: Yes - NEUROLOGICAL Hx Neurological Disorder: No - HEENT Hx HEENT Problems: Yes Hx Cataracts: Yes - RENAL Hx Chronic Kidney Disease: No - ENDOCRINE/METABOLIC Hx Endocrine Disorders: Yes Hx Systemic Lupus Erythematosus: Yes - HEMATOLOGICAL/ONCOLOGICAL Hx Blood Disorders: No Hx AIDS: No Hx Human Immunodeficiency Virus (HIV): No - INTEGUMENTARY Hx Dermatological Problems: No - MUSCULOSKELETAL/RHEUMATOLOGICAL Hx Musculoskeletal Disorders: Yes Hx Falls: Yes Hx Osteoporosis: Yes Hx Rheumatoid Arthritis: Yes (right shoulder) - GASTROINTESTINAL Hx Gastrointestinal Disorders: No - GENITOURINARY/GYNECOLOGICAL Hx Genitourinary Disorders: Yes Other/Comment: bladder surgery, breast ca w/ radiation theraphy - PSYCHIATRIC Hx Psychophysiologic Disorder: No Hx Substance Use: No - SURGICAL HISTORY Hx Surgeries: Yes Hx Appendectomy: Yes Other/Comment: BILATERAL CATARACT SURGERY. right brest lumpectomy - ANESTHESIA Hx Anesthesia: Yes Hx Anesthesia Reactions: No Hx Malignant Hyperthermia: No Meds Allergies/Adverse Reactions: Allergies Allergy/AdvReac Type Severity Reaction Status Date / Time milk AdvReac DIARRHEA Verified 01/25/19 00:39 Physical Exam - Constitutional Appears: No Acute Distress - Head Exam Head Exam: NORMAL INSPECTION - Respiratory Exam Respiratory Exam: Clear to Auscultation Bilateral, NORMAL BREATHING PATTERN - Cardiovascular Exam Cardiovascular Exam: REGULAR RHYTHM, +S1, +S2. absent: Tachycardia - GI/Abdominal Exam GI & Abdominal Exam: Normal Bowel Sounds, Soft. absent: Distended, Tenderness - Extremities Exam Extremities exam: Negative for: calf tenderness, pedal edema Additional comments: LLE moderate swelling to thigh, DP/PT 2+, incisions c/d/i, no oozing, jostin in place - Neurological Exam Neurological exam: Alert, Oriented x3 - Skin Skin Exam: Dry, Warm Results - Vital Signs Recent Vital Signs: Last Vital Signs Temp 98.4 F 01/30/19 21:30 Pulse 81 01/31/19 05:24 Resp 20 01/30/19 21:30 BP 172/65 H 01/31/19 05:24 Pulse Ox 97 01/30/19 21:30 - Labs Result Diagrams: 01/31/19 05:40 01/31/19 05:40 Labs: Laboratory Results - last 24 hr 01/31/19 01/31/19 04:21 05:40 WBC 6.3 RBC 2.95 L Hgb 9.2 L Hct 28.0 L MCV 94.7 D MCH 31.0 MCHC 32.8 L RDW 14.0 Plt Count 144 POC Glucose (mg/dL) 91 Assessment & Plan - Assessment and Plan (Free Text) Assessment: 78 yo female with PMHx of HTN, HLD, SLE, Seizure, R breast Cancer and osteoporosis s/p left femur displaced fracture and s/p IM nail POD 6 now admitted to Acute rehab for PT and OT. Plan: Displaced Left Femoral shaft Fracture, s/p IM nail - Pain management: toradol for mild and moderate, Morphine for severe. - Orthopedic Surgery consult, Dr Alvarez. - PT/OT Acute blood loss anemia - H/H stable - s/p 2 units PRBC - asymptomatic Constipation possible medicine induced - Continue colace - lactulose 20 prn constipation ?SLE/?RA - Chronic - cont Home meds HTN - Chronic, controlled - c/ home meds - Cardiology consulted, recs appreciated HLD - Chronic - Home meds resumed Hx of Seizure - Last episode 2 years ago. -Not on chronic medication anymore. DVT Prophylaxis - d/c Lovenox - started on ASA 325 BID per Ortho recs. - SCD for R lower leg only Case seen and examined with Dr Corby Gilliam PGY 2
[2019-01-31 07:38] LABS: BLOOD UREA NITROGEN 13 mg/dl (7-17); CALCIUM 8.3 mg/dL (8.4-10.2); GFR NON-AFRICAN AMERICAN > 60
--- NOTE | 2019-01-31 08:16 | CARD ---
APPROVED REPORT Date of service: 01/31/2019 EKG Measurement Heart [id number] <Conclusion> Normal sinus rhythm Normal ECG
[2019-01-31] MEDS: Bacitracin OINT 15GM TOP SCH ×2 (08:55→16:00)
--- NOTE | 2019-01-31 08:56 | CP.PCM.CON ---
History of Present Illness - History of Present Illness History of Present Illness: THE PATIENT IS A 78 YEAR OLD FEMALE WHO HAD A MECHANICAL FALL ONE WEEK AGO AND SUSTAINED A FRACTURE OF HER LEFT FEMUR WHICH WAS SURGICALLY REPAIRED. SHE IS NOW ADMITTED TO ACUTE REHAB AND I HAVE BEEN ASKED TO SEE AND FOLLOW HER. SHE HAS AN AORTIC MURMUR AND AN ECHOCARDIOGRAM WITH DOPPLER STUDIES IS COMPATIBLE WITH POSSIBLE SEVERE AORTIC STENOSIS. A CARDIAC CATH WAS RECOMMENDED TO HER BY ME AFTER REHAB TO EVALUATE HER FOR A POSSIBLE AORTIC VALVE REPLACEMENT BUT SHE WANTS TO THINK IT OVER AND DISCUSS IT WITH HER FAMILY BEFORE SHE MAKES A DECISION ON IT. SHE ALSO HAS A HISTORY OF HYPERTENSION AND HYPERLIPIDEMIA. SHE had a BRIEF EPISODE OF CHEST TIGHTNESS DURING THE NIGHT THAT SHE BELIVES WAS DUE TO ANXIETY WORRYING OVER HER MEDICAL PROBLEMS. SHE DENIES SOB. SHE HAS ALREADY BEEN SEEN BY DR MORIN AND A PHYSICAL THERAPY PLAN HAS BEEN OUTLINED. Past Patient History - Past Medical History & Family History Past Medical History?: Yes - Past Social History Smoking Status: Never Smoked Chewing Tobacco Use: No Alcohol: None Drugs: Denies Home Situation {Lives}: With Family (elevator) - CARDIAC Hx Cardiac Disorders: Yes Hx Hypertension: Yes - PULMONARY Hx Respiratory Disorders: Yes Hx Sleep Apnea: Yes - NEUROLOGICAL Hx Neurological Disorder: No - HEENT Hx HEENT Problems: Yes Hx Cataracts: Yes - RENAL Hx Chronic Kidney Disease: No - ENDOCRINE/METABOLIC Hx Endocrine Disorders: Yes Hx Systemic Lupus Erythematosus: Yes - HEMATOLOGICAL/ONCOLOGICAL Hx Blood Disorders: No Hx AIDS: No Hx Human Immunodeficiency Virus (HIV): No - INTEGUMENTARY Hx Dermatological Problems: No - MUSCULOSKELETAL/RHEUMATOLOGICAL Hx Musculoskeletal Disorders: Yes Hx Falls: Yes Hx Osteoporosis: Yes Hx Rheumatoid Arthritis: Yes (right shoulder) - GASTROINTESTINAL Hx Gastrointestinal Disorders: No - GENITOURINARY/GYNECOLOGICAL Hx Genitourinary Disorders: Yes Other/Comment: bladder surgery, breast ca w/ radiation theraphy - PSYCHIATRIC Hx Psychophysiologic Disorder: No Hx Substance Use: No - SURGICAL HISTORY Hx Surgeries: Yes Hx Appendectomy: Yes Other/Comment: BILATERAL CATARACT SURGERY. right brest lumpectomy - ANESTHESIA Hx Anesthesia: Yes Hx Anesthesia Reactions: No Hx Malignant Hyperthermia: No Meds Allergies/Adverse Reactions: Allergies Allergy/AdvReac Type Severity Reaction Status Date / Time milk AdvReac DIARRHEA Verified 01/25/19 00:39 - Medications Medications: Current Medications Acetaminophen (Tylenol 325mg Tab) 650 mg PO Q4 PRN PRN Reason: Pain, Mild (1-3) Acetaminophen/Codeine Phosphate (Tylenol/Codeine 300 Mg/30 Mg) 2 tab PO Q12 PRN PRN Reason: Pain, severe (8-10) Last Admin: 01/30/19 16:57 Dose: 2 tab Aspirin (Ecotrin) 325 mg PO BID [facility] Atenolol (Tenormin) 50 mg PO DAILY [facility] Atorvastatin Calcium (Lipitor) 10 mg PO DAILY [facility] Bacitracin (Bacitracin Oint) 1 applic TOP BID [facility] Last Admin: 01/30/19 17:00 Dose: 1 applic Benzocaine/Menthol (Dermoplast) 1 sprays TOP PRN PRN PRN Reason: Excoriation Celecoxib (Celebrex) 200 mg PO BID [facility] Last Admin: 01/30/19 17:00 Dose: 200 mg Docusate Sodium (Colace) 100 mg PO DAILY [facility] Last Admin: 01/30/19 16:59 Dose: Not Given Duloxetine HCl (Cymbalta) 30 mg PO Q12 PRN PRN Reason: Anxiety Home Med (Calcium Carbonate [Caltrate]) 1 tab PO DAILY [facility] Home Med (Turmeric Root Extract [Turmeric]) 500 mg PO DAILY [facility] Hydrochlorothiazide (Microzide) 12.5 mg PO DAILY [facility] Ketorolac Tromethamine (Toradol) 30 mg IVP Q6 PRN PRN Reason: Pain, moderate (4-7) Morphine Sulfate (Morphine) 2 mg IVP Q4 PRN PRN Reason: Pain, severe (8-10) Multivitamins/Minerals (Therapeutic-M Tab) 1 tab PO DAILY [facility] Silver Sulfadiazine (Silvadene 1% 50 Gm) 1 applic TOP BID [facility] Last Admin: 01/30/19 16:59 Dose: 1 applic Physical Exam - Respiratory Exam Respiratory Exam: Clear to Auscultation Bilateral - Cardiovascular Exam Cardiovascular Exam: REGULAR RHYTHM, +S1, +S2, Systolic Murmur - Additional Findings Additional findings: EKG NSR, NO ACUTE CHANGES TROPONIN NORMAL K+ 3.4 Results - Vital Signs Recent Vital Signs: Last Vital Signs Temp 98.4 F 01/30/19 21:30 Pulse 81 01/31/19 05:24 Resp 20 01/30/19 21:30 BP 172/65 H 01/31/19 05:24 Pulse Ox 97 01/30/19 21:30 - Labs Result Diagrams: 01/31/19 05:40 01/31/19 05:40 Labs: Laboratory Results - last 24 hr 01/31/19 01/31/19 01/31/19 04:21 05:40 05:40 WBC 6.3 RBC 2.95 L Hgb 9.2 L Hct 28.0 L MCV 94.7 D MCH 31.0 MCHC 32.8 L RDW 14.0 Plt Count 144 Sodium 138 Potassium 3.4 L Chloride 106 Carbon Dioxide 28 Anion Gap 7 L BUN 13 Creatinine 0.7 Est GFR ( Amer) > 60 Est GFR (Non-Af Amer) > 60 POC Glucose (mg/dL) 91 Random Glucose 110 H Calcium 8.3 L Troponin I 01/31/19 05:40 WBC RBC Hgb Hct MCV MCH MCHC RDW Plt Count Sodium Potassium Chloride Carbon Dioxide Anion Gap BUN Creatinine Est GFR ( Amer) Est GFR (Non-Af Amer) POC Glucose (mg/dL) Random Glucose Calcium Troponin I 0.0130 Assessment & Plan - Assessment and Plan (Free Text) Assessment: SURGICAL REPAIR OF LEFT FEMUR FRACTURE AORTIC STENOSIS HYPERTENSION HYPERLIPIDEMIA Plan: CONTINUE ASPIRIN, ATENOLOL, ATORVASTATIN AND PAIN MEDICATIONS [facility] ORDERED CONTINUE REHAB THE PATIENT IS STILL DECIDING ABOUT WHETHER SHE WILL UNDERGO A CARDIAC CATH AFTER REHAB
[2019-01-31] MEDS: Aspirin 325 mg EC Tablets PO SCH ×2 (08:57→16:00)
[2019-01-31] MEDS: Silver Sulfadiazine 1% CREAM (50 gm) TOP SCH ×2 (08:58→16:00)
[2019-01-31] MEDS: Multivitamin With Minerals Tab PO SCH (08:59)
[2019-01-31] MEDS ORDERED: Patient's Own Med (Multivitamin/Iron/Folic Acid [Centrum Complete Multivit Tab] 1 TAB) PO SCH (09:00)
[2019-01-31] MEDS ORDERED: TURMERIC ROOT EXTRACT 500 MG PO SCH (09:00)
[2019-01-31] MEDS ORDERED: Enoxaparin 40 mg Syringe SC SCH (09:00)
[2019-01-31] MEDS: Acetaminophen-Codeine 300/30 mg Tab PO PRN (09:40)
--- NOTE | 2019-01-31 12:37 | CP.PCM.PN ---
Subjective - Date & Time of Evaluation Date of Evaluation: 01/31/19 Time of Evaluation: 11:00 - Subjective Subjective: Patient seen and examined OOB to chair, working with PT. Pain well controlled. No new complaints. Objective - Vital Signs/Intake and Output Vital Signs (last 24 hours): Temp Pulse Resp BP Pulse Ox 98.1 F 99 H 18 179/81 H 98 01/31/19 08:53 01/31/19 08:59 01/31/19 08:53 01/31/19 08:59 01/31/19 08:53 - Medications Medications: Current Medications Acetaminophen (Tylenol 325mg Tab) 650 mg PO Q4 PRN PRN Reason: Pain, Mild (1-3) Acetaminophen/Codeine Phosphate (Tylenol/Codeine 300 Mg/30 Mg) 2 tab PO Q12 PRN PRN Reason: Pain, severe (8-10) Last Admin: 01/31/19 09:40 Dose: 2 tab Aspirin (Ecotrin) 325 mg PO BID [facility] Last Admin: 01/31/19 08:57 Dose: 325 mg Atenolol (Tenormin) 50 mg PO DAILY [facility] Last Admin: 01/31/19 08:59 Dose: 50 mg Atorvastatin Calcium (Lipitor) 10 mg PO DAILY [facility] Last Admin: 01/31/19 08:57 Dose: 10 mg Bacitracin (Bacitracin Oint) 1 applic TOP BID [facility] Last Admin: 01/31/19 08:55 Dose: 1 applic Benzocaine/Menthol (Dermoplast) 1 sprays TOP PRN PRN PRN Reason: Excoriation Calcium Carbonate (Oscal) 500 mg PO DAILY [facility] Celecoxib (Celebrex) 200 mg PO BID [facility] Last Admin: 01/31/19 08:56 Dose: 200 mg Docusate Sodium (Colace) 100 mg PO DAILY [facility] Last Admin: 01/31/19 08:56 Dose: Not Given Duloxetine HCl (Cymbalta) 30 mg PO Q12 PRN PRN Reason: Anxiety Hydrochlorothiazide (Microzide) 12.5 mg PO DAILY [facility] Last Admin: 01/31/19 08:57 Dose: 12.5 mg Ketorolac Tromethamine (Toradol) 30 mg IVP Q6 PRN PRN Reason: Pain, moderate (4-7) Morphine Sulfate (Morphine) 2 mg IVP Q4 PRN PRN Reason: Pain, severe (8-10) Multivitamins/Minerals (Therapeutic-M Tab) 1 tab PO DAILY [place] Last Admin: 01/31/19 08:59 Dose: 1 tab Potassium Chloride (K-Dur 20 Meq Er Tab) 20 meq PO DAILY [facility] Silver Sulfadiazine (Silvadene 1% 50 Gm) 1 applic TOP BID [facility] Last Admin: 01/31/19 08:58 Dose: 1 applic - Labs Labs: 01/31/19 05:40 01/31/19 05:40 - Extremities Exam Additional comments: LLE: distal dressings CDI, proximal dressings with mild serous drainage proximal wound intact with jostin, scant serous drainage moderate swelling to thigh sensation intact SP/DP/TN motor intact EHl/FHL/TA/G pedal pulse intact calves soft NT Assessment and Plan (1) Femur fracture Assessment & Plan: POD# 6 s/p L femur fx ORIF with IM nail -pain control -PT/OT PWB -wound care on board for proximal wound drainage and blister -will follow -above d/w Dr. Alvarez in agreement Status: Acute
[2019-01-31] MEDS: Potassium Chloride 20 mEq ER Tab PO SCH (13:02)
--- NOTE | 2019-01-31 13:53 | US ---
Date of service: 01/30/2019 HISTORY: left DVT. PRIORS: Not available FINDINGS: 2-D, color and duplex Doppler analysis of the lower extremity venous circulation using routine protocol from the femoral veins through the popliteal veins. Venous compressibility: Normal. Flow and augmentation patterns: Normal. Visualized veins upper third of calf: Normal. Hsieh cyst: None. IMPRESSION: No sonographic or Doppler evidence for DVT in left lower extremity.
[2019-02-01] MEDS: Potassium Chloride 20 mEq ER Tab PO SCH (08:59)
[2019-02-01] MEDS: Multivitamin With Minerals Tab PO SCH (09:00)
[2019-02-01] MEDS: Aspirin 325 mg EC Tablets PO SCH ×2 (09:00→16:31)
[2019-02-01] MEDS: Silver Sulfadiazine 1% CREAM (50 gm) TOP SCH ×2 (09:01→16:31)
[2019-02-01] MEDS: Bacitracin OINT 15GM TOP SCH ×2 (09:01→16:31)
--- NOTE | 2019-02-01 09:19 | CP.PCM.PN ---
Subjective - Date & Time of Evaluation Date of Evaluation: 02/01/19 Time of Evaluation: 08:00 - Subjective Subjective: Patient seen and examined at bedside comfortable eating breakfast. Pain is well controlled. Tolerated PT well, able to ambulate with RW with PT. No acute events overnight. Objective - Vital Signs/Intake and Output Vital Signs (last 24 hours): Temp Pulse Resp BP Pulse Ox 98.1 F 88 20 138/58 L 98 01/31/19 20:00 02/01/19 09:00 01/31/19 20:00 02/01/19 09:00 01/31/19 20:00 - Medications Medications: Current Medications Acetaminophen (Tylenol 325mg Tab) 650 mg PO Q4 PRN PRN Reason: Pain, Mild (1-3) Last Admin: 01/31/19 15:58 Dose: 650 mg Acetaminophen/Codeine Phosphate (Tylenol/Codeine 300 Mg/30 Mg) 2 tab PO Q12 PRN PRN Reason: Pain, severe (8-10) Last Admin: 01/31/19 09:40 Dose: 2 tab Aspirin (Ecotrin) 325 mg PO BID [facility] Last Admin: 02/01/19 09:00 Dose: 325 mg Atenolol (Tenormin) 50 mg PO DAILY [facility] Last Admin: 02/01/19 09:00 Dose: 50 mg Atorvastatin Calcium (Lipitor) 10 mg PO DAILY [facility] Last Admin: 02/01/19 08:59 Dose: 10 mg Bacitracin (Bacitracin Oint) 1 applic TOP BID [facility] Last Admin: 02/01/19 09:01 Dose: 1 applic Benzocaine/Menthol (Dermoplast) 1 sprays TOP PRN PRN PRN Reason: Excoriation Calcium Carbonate (Oscal) 500 mg PO DAILY [facility] Last Admin: 02/01/19 09:00 Dose: 500 mg Celecoxib (Celebrex) 200 mg PO BID [facility] Last Admin: 02/01/19 08:59 Dose: 200 mg Clonazepam (Klonopin) 0.5 mg PO DAILY [facility] Last Admin: 02/01/19 08:59 Dose: 0.5 mg Docusate Sodium (Colace) 100 mg PO DAILY [facility] Last Admin: 02/01/19 09:02 Dose: Not Given Duloxetine HCl (Cymbalta) 30 mg PO Q12 PRN PRN Reason: Anxiety Hydrochlorothiazide (Microzide) 12.5 mg PO DAILY [facility] Last Admin: 02/01/19 09:00 Dose: 12.5 mg Ketorolac Tromethamine (Toradol) 30 mg IVP Q6 PRN PRN Reason: Pain, moderate (4-7) Last Admin: 02/01/19 09:00 Dose: 30 mg Morphine Sulfate (Morphine) 2 mg IVP Q4 PRN PRN Reason: Pain, severe (8-10) Last Admin: 01/31/19 13:05 Dose: 2 mg Multivitamins/Minerals (Therapeutic-M Tab) 1 tab PO DAILY [facility] Last Admin: 02/01/19 09:00 Dose: 1 tab Potassium Chloride (K-Dur 20 Meq Er Tab) 20 meq PO DAILY [facility] Last Admin: 02/01/19 08:59 Dose: 20 meq Silver Sulfadiazine (Silvadene 1% 50 Gm) 1 applic TOP BID [facility] Last Admin: 02/01/19 09:01 Dose: 1 applic - Labs Labs: 01/31/19 05:40 01/31/19 05:40 - Extremities Exam Additional comments: LLE: distal dressings CDI, proximal dressings CDI moderate swelling to thigh sensation intact SP/DP/TN motor intact EHl/FHL/TA/G pedal pulse intact calves soft N Assessment and Plan (1) Femur fracture Assessment & Plan: POD# 7 s/p L femur fx ORIF with IM nail -DVT ppx with ASA 325mg BID as per Dr. Alvarez, b/l SCD's and compression stockings -pain control -PT/OT PWB -orthopedically stable -above d/w Dr. Alvarez in agreement Status: Acute
[2019-02-01] MEDS ORDERED: Acetaminophen-Codeine 300/30 mg Tab PO PRN (17:58)
--- NOTE | 2019-02-01 18:21 | CP.PCM.PN ---
Subjective - Date & Time of Evaluation Date of Evaluation: 02/01/19 Time of Evaluation: 18:19 - Subjective Subjective: Evelio Torres, born 1940 who has been admitted to [facility] acute inpatient rehabilitation following a mechanical fall with left femur fracture and underwent ORIF. Left leg swelling and doppler was negative for DVT Reduced pain and improved ROM appreciates therapies Objective - Vital Signs/Intake and Output Vital Signs (last 24 hours): Temp Pulse Resp BP Pulse Ox 98.2 F 88 18 138/58 L 98 02/01/19 10:00 02/01/19 10:00 02/01/19 10:00 02/01/19 10:00 02/01/19 10:00 - Medications Medications: Current Medications Acetaminophen (Tylenol 325mg Tab) 650 mg PO Q4 PRN PRN Reason: Pain, Mild (1-3) Last Admin: 02/01/19 13:16 Dose: 650 mg Acetaminophen/Codeine Phosphate (Tylenol/Codeine 300 Mg/30 Mg) 1 tab PO Q12 PRN PRN Reason: Pain 4-7/10 Aspirin (Ecotrin) 325 mg PO BID [facility] Last Admin: 02/01/19 16:31 Dose: 325 mg Atenolol (Tenormin) 50 mg PO DAILY [facility] Last Admin: 02/01/19 09:00 Dose: 50 mg Atorvastatin Calcium (Lipitor) 10 mg PO DAILY [facility] Last Admin: 02/01/19 08:59 Dose: 10 mg Bacitracin (Bacitracin Oint) 1 applic TOP BID [facility] Last Admin: 02/01/19 16:31 Dose: 1 applic Benzocaine/Menthol (Dermoplast) 1 sprays TOP PRN PRN PRN Reason: Excoriation Calcium Carbonate (Oscal) 500 mg PO DAILY [facility] Last Admin: 02/01/19 09:00 Dose: 500 mg Celecoxib (Celebrex) 200 mg PO BID [facility] Last Admin: 02/01/19 16:31 Dose: 200 mg Clonazepam (Klonopin) 0.5 mg PO DAILY [facility] Last Admin: 02/01/19 08:59 Dose: 0.5 mg Docusate Sodium (Colace) 100 mg PO DAILY [facility] Last Admin: 02/01/19 09:02 Dose: Not Given Duloxetine HCl (Cymbalta) 30 mg PO Q12 PRN PRN Reason: Anxiety Hydrochlorothiazide (Microzide) 12.5 mg PO DAILY [facility] Last Admin: 02/01/19 09:00 Dose: 12.5 mg Multivitamins/Minerals (Therapeutic-M Tab) 1 tab PO DAILY [facility] Last Admin: 02/01/19 09:00 Dose: 1 tab Potassium Chloride (K-Dur 20 Meq Er Tab) 20 meq PO DAILY [facility] Last Admin: 02/01/19 08:59 Dose: 20 meq Silver Sulfadiazine (Silvadene 1% 50 Gm) 1 applic TOP BID [facility] Last Admin: 02/01/19 16:31 Dose: 1 applic Tramadol HCl (Ultram) 50 mg PO Q6 PRN PRN Reason: pain 8-08/16 - Labs Labs: 01/31/19 05:40 01/31/19 05:40 - Constitutional Appears: Well, Non-toxic, No Acute Distress - Head Exam Head Exam: ATRAUMATIC, NORMAL INSPECTION, NORMOCEPHALIC - Eye Exam Eye Exam: EOMI - ENT Exam ENT Exam: Mucous Membranes Moist - Respiratory Exam Respiratory Exam: NORMAL BREATHING PATTERN - Cardiovascular Exam Cardiovascular Exam: REGULAR RHYTHM, Murmur (4/6SEM) - GI/Abdominal Exam GI & Abdominal Exam: absent: Guarding - Extremities Exam Extremities Exam: absent: Calf Tenderness - Neurological Exam Neurological Exam: Alert, CN II-XII Intact, Oriented x3 - Psychiatric Exam Psychiatric exam: Normal Affect, Normal Mood Assessment and Plan - Assessment and Plan (Free Text) Assessment: Evelio Torres, born 1940 who has been admitted to [facility] acute inpatient rehabilitation following a mechanical fall with left femur fracture and underwent ORIF PT/OT to continue to help increase functional independence Team conference for d/c planning Pain: controlled Vascular: no evidence of DVT on doppler GI: No evidence of constipation or diarrhea Patient continues to be an excellent acute rehabilitation candidate and will have continued focused pain management, PT, OT and recreational therapy to help facilitate a safe and appropriate d/c plan
[2019-02-02 06:54] LABS: BLOOD UREA NITROGEN 22 mg/dl (7-17); CALCIUM 8.8 mg/dL (8.4-10.2); GFR NON-AFRICAN AMERICAN > 60
--- NOTE | 2019-02-02 08:09 | CP.PCM.PN ---
Subjective - Date & Time of Evaluation Date of Evaluation: 02/02/19 Time of Evaluation: 08:09 - Subjective Subjective: Patient seen and examined today, reports feeling better, working on PT doing better. No active complaints at this time. Objective - Vital Signs/Intake and Output Vital Signs (last 24 hours): Temp Pulse Resp BP Pulse Ox 98.4 F 90 20 143/67 97 02/01/19 19:49 02/01/19 19:49 02/01/19 19:49 02/01/19 19:49 02/01/19 19:49 - Medications Medications: Current Medications Acetaminophen (Tylenol 325mg Tab) 650 mg PO Q4 PRN PRN Reason: Pain, Mild (1-3) Last Admin: 02/01/19 13:16 Dose: 650 mg Acetaminophen/Codeine Phosphate (Tylenol/Codeine 300 Mg/30 Mg) 1 tab PO Q12 PRN PRN Reason: Pain 4-7/10 Aspirin (Ecotrin) 325 mg PO BID [facility] Last Admin: 02/01/19 16:31 Dose: 325 mg Atenolol (Tenormin) 50 mg PO DAILY [facility] Last Admin: 02/01/19 09:00 Dose: 50 mg Atorvastatin Calcium (Lipitor) 10 mg PO DAILY [facility] Last Admin: 02/01/19 08:59 Dose: 10 mg Bacitracin (Bacitracin Oint) 1 applic TOP BID [facility] Last Admin: 02/01/19 16:31 Dose: 1 applic Benzocaine/Menthol (Dermoplast) 1 sprays TOP PRN PRN PRN Reason: Excoriation Calcium Carbonate (Oscal) 500 mg PO DAILY [facility] Last Admin: 02/01/19 09:00 Dose: 500 mg Celecoxib (Celebrex) 200 mg PO BID [facility] Last Admin: 02/01/19 16:31 Dose: 200 mg Clonazepam (Klonopin) 0.5 mg PO DAILY [facility] Last Admin: 02/01/19 08:59 Dose: 0.5 mg Docusate Sodium (Colace) 100 mg PO DAILY [facility] Last Admin: 02/01/19 09:02 Dose: Not Given Duloxetine HCl (Cymbalta) 30 mg PO Q12 PRN PRN Reason: Anxiety Last Admin: 02/01/19 21:34 Dose: 30 mg Hydrochlorothiazide (Microzide) 12.5 mg PO DAILY [facility] Last Admin: 02/01/19 09:00 Dose: 12.5 mg Multivitamins/Minerals (Therapeutic-M Tab) 1 tab PO DAILY [place] Last Admin: 02/01/19 09:00 Dose: 1 tab Potassium Chloride (K-Dur 20 Meq Er Tab) 20 meq PO DAILY [facility] Last Admin: 02/01/19 08:59 Dose: 20 meq Silver Sulfadiazine (Silvadene 1% 50 Gm) 1 applic TOP BID [place] Last Admin: 02/01/19 16:31 Dose: 1 applic Tramadol HCl (Ultram) 50 mg PO Q6 PRN PRN Reason: pain 8-08/16 - Labs Labs: 01/31/19 05:40 02/02/19 05:20 - Constitutional Appears: No Acute Distress - Head Exam Head Exam: NORMAL INSPECTION - Respiratory Exam Respiratory Exam: Clear to Ausculation Bilateral, NORMAL BREATHING PATTERN - Cardiovascular Exam Cardiovascular Exam: REGULAR RHYTHM, +S1. absent: Tachycardia - GI/Abdominal Exam GI & Abdominal Exam: Soft, Normal Bowel Sounds. absent: Tenderness - Extremities Exam Extremities Exam: absent: Calf Tenderness, Pedal Edema Additional comments: LLE mild thigh swelling, DP/PT 2+ - Neurological Exam Neurological Exam: Alert, Awake, Oriented x3 - Skin Skin Exam: Dry, Warm Assessment and Plan - Assessment and Plan (Free Text) Assessment: 78 yo female with PMHx of HTN, HLD, SLE, Seizure, R breast Cancer and osteoporosis s/p left femur displaced fracture and s/p IM nail POD 7 now admitted to Acute rehab for PT and OT. Plan: Displaced Left Femoral shaft Fracture, s/p IM nail - Pain management: toradol for mild and moderate, Morphine for severe. - Orthopedic Surgery consult, Dr Alvarez. - PT/OT Acute blood loss anemia - H/H stable - s/p 2 units PRBC - asymptomatic Constipation possible medicine induced, improving - d/c colace - check for BM ?SLE/?RA - Chronic - cont Home meds HTN - Chronic, controlled - c/ home meds - Cardiology consulted, recs appreciated HLD - Chronic - Home meds resumed h/o Anxiety - clonipin 0.5 mg started Hx of Seizure - Last episode 2 years ago. -Not on chronic medication anymore. DVT Prophylaxis - on ASA 325 BID per Ortho recs. - SCD for R lower leg only GI ppx Protonix daily Case seen and examined with Dr Corby Gilliam PGY 2
[2019-02-02] MEDS: Bacitracin OINT 15GM TOP SCH ×2 (09:21→17:28)
[2019-02-02] MEDS: Potassium Chloride 20 mEq ER Tab PO SCH (09:22)
[2019-02-02] MEDS: Silver Sulfadiazine 1% CREAM (50 gm) TOP SCH ×2 (09:22→17:29)
[2019-02-02] MEDS: Aspirin 325 mg EC Tablets PO SCH ×2 (09:22→17:28)
[2019-02-02] MEDS: Multivitamin With Minerals Tab PO SCH (09:23)
--- NOTE | 2019-02-02 10:31 | CP.PCM.PN ---
Subjective - Date & Time of Evaluation Date of Evaluation: 02/02/19 Time of Evaluation: 09:00 - Subjective Subjective: NO CHEST PAIN OR SOB Objective - Vital Signs/Intake and Output Vital Signs (last 24 hours): Temp Pulse Resp BP Pulse Ox 98.4 F 94 H 20 142/61 97 02/01/19 19:49 02/02/19 09:23 02/01/19 19:49 02/02/19 09:23 02/01/19 19:49 - Medications Medications: Current Medications Acetaminophen (Tylenol 325mg Tab) 650 mg PO Q4 PRN PRN Reason: Pain, Mild (1-3) Last Admin: 02/01/19 13:16 Dose: 650 mg Acetaminophen/Codeine Phosphate (Tylenol/Codeine 300 Mg/30 Mg) 1 tab PO Q12 PRN PRN Reason: Pain 4-7/10 Last Admin: 02/02/19 09:20 Dose: 1 tab Aspirin (Ecotrin) 325 mg PO BID [facility] Last Admin: 02/02/19 09:22 Dose: 325 mg Atenolol (Tenormin) 50 mg PO DAILY [facility] Last Admin: 02/02/19 09:23 Dose: 50 mg Atorvastatin Calcium (Lipitor) 10 mg PO DAILY [facility] Last Admin: 02/02/19 09:24 Dose: 10 mg Bacitracin (Bacitracin Oint) 1 applic TOP BID [facility] Last Admin: 02/02/19 09:21 Dose: 1 applic Benzocaine/Menthol (Dermoplast) 1 sprays TOP PRN PRN PRN Reason: Excoriation Calcium Carbonate (Oscal) 500 mg PO DAILY [facility] Last Admin: 02/02/19 09:22 Dose: 500 mg Celecoxib (Celebrex) 200 mg PO BID [facility] Last Admin: 02/02/19 09:22 Dose: 200 mg Clonazepam (Klonopin) 0.5 mg PO DAILY [facility] Last Admin: 02/02/19 09:21 Dose: 0.5 mg Docusate Sodium (Colace) 100 mg PO DAILY [facility] Last Admin: 02/02/19 09:24 Dose: Not Given Duloxetine HCl (Cymbalta) 30 mg PO Q12 PRN PRN Reason: Anxiety Last Admin: 02/01/19 21:34 Dose: 30 mg Hydrochlorothiazide (Microzide) 12.5 mg PO DAILY [facility] Last Admin: 02/02/19 09:24 Dose: 12.5 mg Multivitamins/Minerals (Therapeutic-M Tab) 1 tab PO DAILY [facility] Last Admin: 02/02/19 09:23 Dose: 1 tab Potassium Chloride (K-Dur 20 Meq Er Tab) 20 meq PO DAILY [facility] Last Admin: 02/02/19 09:22 Dose: 20 meq Silver Sulfadiazine (Silvadene 1% 50 Gm) 1 applic TOP BID [facility] Last Admin: 02/02/19 09:22 Dose: 1 applic Tramadol HCl (Ultram) 50 mg PO Q6 PRN PRN Reason: pain 8-08/16 - Labs Labs: 01/31/19 05:40 02/02/19 05:20 - Respiratory Exam Respiratory Exam: Clear to Ausculation Bilateral - Cardiovascular Exam Cardiovascular Exam: REGULAR RHYTHM, +S1, +S2 - Extremities Exam Additional comments: NO LE EDEMA - Additional Findings Additional findings: K+ 4.2 Assessment and Plan - Assessment and Plan (Free Text) Assessment: SURGICAL REPAIR OF LEFT FEMUR FRACTURE HYPERTENSION HYPERLIPIDEMIA HYPOKALEMIA-CORRECTED Plan: CONTINUE ASPIRIN, ATENOLOL, HCTZ AND ATORVASTATIN CONTINUE REHAB
[2019-02-02] MEDS ORDERED: Simethicone 80 mg Chewtab PO PRN (12:47)
[2019-02-02] MEDS: Pantoprazole 40 mg EC Tab PO SCH (15:10)
--- NOTE | 2019-02-02 15:47 | CP.PCM.PN ---
Subjective - Date & Time of Evaluation Date of Evaluation: 02/02/19 Time of Evaluation: 15:46 - Subjective Subjective: Patient seen in the room doing ok notes pain I increased the frequency of the medication no sob/cp continue current care Objective - Vital Signs/Intake and Output Vital Signs (last 24 hours): Temp Pulse Resp BP Pulse Ox 97.9 F 94 H 18 142/61 96 02/02/19 10:00 02/02/19 10:00 02/02/19 10:00 02/02/19 10:00 02/02/19 10:00 - Medications Medications: Current Medications Acetaminophen (Tylenol 325mg Tab) 650 mg PO Q4 PRN PRN Reason: Pain, Mild (1-3) Last Admin: 02/02/19 15:10 Dose: 650 mg Acetaminophen/Codeine Phosphate (Tylenol/Codeine 300 Mg/30 Mg) 1 tab PO Q6 [facility] Aspirin (Ecotrin) 325 mg PO BID [facility] Last Admin: 02/02/19 09:22 Dose: 325 mg Atenolol (Tenormin) 50 mg PO DAILY [facility] Last Admin: 02/02/19 09:23 Dose: 50 mg Atorvastatin Calcium (Lipitor) 10 mg PO DAILY [facility] Last Admin: 02/02/19 09:24 Dose: 10 mg Bacitracin (Bacitracin Oint) 1 applic TOP BID [facility] Last Admin: 02/02/19 09:21 Dose: 1 applic Benzocaine/Menthol (Dermoplast) 1 sprays TOP PRN PRN PRN Reason: Excoriation Calcium Carbonate (Oscal) 500 mg PO DAILY [facility] Last Admin: 02/02/19 09:22 Dose: 500 mg Celecoxib (Celebrex) 200 mg PO BID [facility] Last Admin: 02/02/19 09:22 Dose: 200 mg Clonazepam (Klonopin) 0.5 mg PO DAILY [facility] Last Admin: 02/02/19 09:21 Dose: 0.5 mg Duloxetine HCl (Cymbalta) 30 mg PO Q12 PRN PRN Reason: Anxiety Last Admin: 02/01/19 21:34 Dose: 30 mg Hydrochlorothiazide (Microzide) 12.5 mg PO DAILY [facility] Last Admin: 02/02/19 09:24 Dose: 12.5 mg Multivitamins/Minerals (Therapeutic-M Tab) 1 tab PO DAILY [facility] Last Admin: 02/02/19 09:23 Dose: 1 tab Pantoprazole Sodium (Protonix Ec Tab) 40 mg PO DAILY [facility] Last Admin: 02/02/19 15:10 Dose: 40 mg Silver Sulfadiazine (Silvadene 1% 50 Gm) 1 applic TOP BID [facility] Last Admin: 02/02/19 09:22 Dose: 1 applic Simethicone (Mylicon Chew Tab) 80 mg PO Q8 PRN PRN Reason: Flatulence Tramadol HCl (Ultram) 50 mg PO Q6 PRN PRN Reason: pain 8-10 - Labs Labs: 01/31/19 05:40 02/02/19 05:20
[2019-02-02] MEDS ORDERED: Acetaminophen-Codeine 300/30 mg Tab PO SCH (18:00)
[2019-02-03] MEDS: Acetaminophen-Codeine 300/30 mg Tab PO PRN ×2 (09:17→16:02)
[2019-02-03] MEDS: Bacitracin OINT 15GM TOP SCH ×2 (09:18→17:30)
[2019-02-03] MEDS: Silver Sulfadiazine 1% CREAM (50 gm) TOP SCH ×2 (09:18→17:30)
[2019-02-03] MEDS: Aspirin 325 mg EC Tablets PO SCH ×2 (09:18→17:30)
[2019-02-03] MEDS: Multivitamin With Minerals Tab PO SCH (09:19)
[2019-02-03] MEDS: Pantoprazole 40 mg EC Tab PO SCH (09:19)
--- NOTE | 2019-02-04 06:58 | CP.PCM.PN ---
<Adrian Jonas - Last Filed: 02/04/19 11:14> Subjective - Date & Time of Evaluation Date of Evaluation: 02/04/19 Time of Evaluation: 07:00 - Subjective Subjective: Patient seen and examined at bedside today. No acute event overnight. Patient slept well, she denies SOB, chest pain, abd pain diarrhea, constipation dysuria or polyuria. Objective - Vital Signs/Intake and Output Vital Signs (last 24 hours): Temp Pulse Resp BP Pulse Ox 98.1 F 80 20 141/64 99 02/03/19 21:11 02/03/19 21:11 02/03/19 21:11 02/03/19 21:11 02/03/19 21:11 - Medications Medications: Current Medications Acetaminophen (Tylenol 325mg Tab) 650 mg PO Q4 PRN PRN Reason: Pain, Mild (1-3) Last Admin: 02/03/19 21:15 Dose: 650 mg Acetaminophen/Codeine Phosphate (Tylenol/Codeine 300 Mg/30 Mg) 1 tab PO Q6 PRN PRN Reason: Pain, moderate (4-7) Last Admin: 02/03/19 16:02 Dose: 1 tab Aspirin (Ecotrin) 325 mg PO BID [facility] Last Admin: 02/03/19 17:30 Dose: 325 mg Atenolol (Tenormin) 50 mg PO DAILY [facility] Last Admin: 02/03/19 09:18 Dose: 50 mg Atorvastatin Calcium (Lipitor) 10 mg PO DAILY [facility] Last Admin: 02/03/19 09:20 Dose: 10 mg Bacitracin (Bacitracin Oint) 1 applic TOP BID [facility] Last Admin: 02/03/19 17:30 Dose: 1 applic Benzocaine/Menthol (Dermoplast) 1 sprays TOP PRN PRN PRN Reason: Excoriation Calcium Carbonate (Oscal) 500 mg PO DAILY [facility] Last Admin: 02/03/19 09:18 Dose: 500 mg Celecoxib (Celebrex) 200 mg PO BID [facility] Last Admin: 02/03/19 17:30 Dose: 200 mg Clonazepam (Klonopin) 0.5 mg PO DAILY [facility] Last Admin: 02/03/19 09:18 Dose: 0.5 mg Duloxetine HCl (Cymbalta) 30 mg PO Q12 PRN PRN Reason: Anxiety Last Admin: 02/01/19 21:34 Dose: 30 mg Hydrochlorothiazide (Microzide) 12.5 mg PO DAILY [facility] Last Admin: 02/03/19 09:20 Dose: 12.5 mg Multivitamins/Minerals (Therapeutic-M Tab) 1 tab PO DAILY [facility] Last Admin: 02/03/19 09:19 Dose: 1 tab Pantoprazole Sodium (Protonix Ec Tab) 40 mg PO DAILY [facility] Last Admin: 02/03/19 09:19 Dose: 40 mg Silver Sulfadiazine (Silvadene 1% 50 Gm) 1 applic TOP BID [facility] Last Admin: 02/03/19 17:30 Dose: 1 applic Simethicone (Mylicon Chew Tab) 80 mg PO Q8 PRN PRN Reason: Flatulence Tramadol HCl (Ultram) 50 mg PO Q6 PRN PRN Reason: pain 8-10 - Labs Labs: 01/31/19 05:40 02/02/19 05:20 - Constitutional Appears: Well, Non-toxic, No Acute Distress - Head Exam Head Exam: ATRAUMATIC, NORMAL INSPECTION, NORMOCEPHALIC - Eye Exam Eye Exam: EOMI, Normal appearance, PERRL Pupil Exam: NORMAL ACCOMODATION, PERRL - ENT Exam ENT Exam: Mucous Membranes Moist, Normal Exam - Neck Exam Neck Exam: Full ROM, Normal Inspection - Respiratory Exam Respiratory Exam: Clear to Ausculation Bilateral, NORMAL BREATHING PATTERN - Cardiovascular Exam Cardiovascular Exam: REGULAR RHYTHM, +S1, +S2 Additional comments: Positive for systolic murmer - GI/Abdominal Exam GI & Abdominal Exam: Soft, Normal Bowel Sounds - Extremities Exam Extremities Exam: Normal Capillary Refill, Normal Inspection Additional comments: RIGHT Upper extremities weaknes+ Weakness LEFT lower extremities - Back Exam Back Exam: NORMAL INSPECTION - Neurological Exam Neurological Exam: Alert, Awake, CN II-XII Intact, Oriented x3 - Psychiatric Exam Psychiatric exam: Normal Affect, Normal Mood - Skin Skin Exam: Dry, Intact, Normal Color, Warm Assessment and Plan - Assessment and Plan (Free Text) Assessment: 78 yo female with PMHx of HTN, HLD, SLE, Seizure, R breast Cancer and osteoporosis s/p left femur displaced fracture and s/p IM nail POD 9 now admitted to Acute rehab for PT and OT. Plan: Displaced Left Femoral shaft Fracture, s/p IM nail - Pain management: toradol for mild and moderate, Morphine for severe. - Orthopedic Surgery consult, Dr Alvarez. - PT/OT Acute blood loss anemia - H/H stable - s/p 2 units PRBC - asymptomatic Constipation possible medicine induced, improving - d/c colace - check for BM ?SLE/?RA - Chronic - cont Home meds HTN - Chronic, controlled - c/ home meds - Cardiology consulted, recs appreciated HLD - Chronic - Home meds resumed h/o Anxiety - clonipin 0.5 mg started Hx of Seizure - Last episode 2 years ago. -Not on chronic medication anymore. DVT Prophylaxis - on ASA 325 BID per Ortho recs. - SCD for R lower leg only GI ppx Protonix daily <Ankur Ramires D - Last Filed: 02/04/19 13:43> Objective - Vital Signs/Intake and Output Vital Signs (last 24 hours): Temp Pulse Resp BP Pulse Ox 97.5 F L 94 H 18 158/75 H 97 02/04/19 10:00 02/04/19 10:00 02/04/19 10:00 02/04/19 10:00 02/04/19 10:00 - Medications Medications: Current Medications Acetaminophen (Tylenol 325mg Tab) 650 mg PO Q4 PRN PRN Reason: Pain, Mild (1-3) Last Admin: 02/03/19 21:15 Dose: 650 mg Acetaminophen/Codeine Phosphate (Tylenol/Codeine 300 Mg/30 Mg) 1 tab PO Q6 PRN PRN Reason: Pain, moderate (4-7) Last Admin: 02/03/19 16:02 Dose: 1 tab Aspirin (Ecotrin) 325 mg PO BID [facility] Last Admin: 02/04/19 09:09 Dose: 325 mg Atenolol (Tenormin) 50 mg PO DAILY [facility] Last Admin: 02/04/19 09:10 Dose: 50 mg Atorvastatin Calcium (Lipitor) 10 mg PO DAILY [facility] Last Admin: 02/04/19 09:11 Dose: 10 mg Bacitracin (Bacitracin Oint) 1 applic TOP BID [facility] Last Admin: 02/04/19 09:08 Dose: 1 applic Benzocaine/Menthol (Dermoplast) 1 sprays TOP PRN PRN PRN Reason: Excoriation Calcium Carbonate (Oscal) 500 mg PO DAILY [facility] Last Admin: 02/04/19 09:10 Dose: 500 mg Celecoxib (Celebrex) 200 mg PO BID [facility] Last Admin: 02/04/19 09:10 Dose: 200 mg Clonazepam (Klonopin) 0.5 mg PO DAILY [facility] Last Admin: 02/04/19 09:08 Dose: 0.5 mg Duloxetine HCl (Cymbalta) 30 mg PO Q12 PRN PRN Reason: Anxiety Last Admin: 02/01/19 21:34 Dose: 30 mg Hydrochlorothiazide (Microzide) 12.5 mg PO DAILY [facility] Last Admin: 02/04/19 09:10 Dose: 12.5 mg Multivitamins/Minerals (Therapeutic-M Tab) 1 tab PO DAILY [facility] Last Admin: 02/04/19 09:09 Dose: 1 tab Pantoprazole Sodium (Protonix Ec Tab) 40 mg PO DAILY [facility] Last Admin: 02/04/19 09:10 Dose: 40 mg Silver Sulfadiazine (Silvadene 1% 50 Gm) 1 applic TOP BID [facility] Last Admin: 02/04/19 09:08 Dose: 1 applic Simethicone (Mylicon Chew Tab) 80 mg PO Q8 PRN PRN Reason: Flatulence Tramadol HCl (Ultram) 50 mg PO Q6 PRN PRN Reason: pain 8-10/10 - Labs Labs: 01/31/19 05:40 02/02/19 05:20 Attending/Attestation - Attestation I have personally seen and examined this patient.: Yes I have fully participated in the care of the patient.: Yes I have reviewed all pertinent clinical information, including history, physical exam and plan: Yes Notes (Text): 02/04/19 13:42 Patient seen and examined with resident. Case discussed and agreed with assessment.
[2019-02-04] MEDS: Bacitracin OINT 15GM TOP SCH ×2 (09:08→16:53)
[2019-02-04] MEDS: Silver Sulfadiazine 1% CREAM (50 gm) TOP SCH ×2 (09:08→16:52)
[2019-02-04] MEDS: Multivitamin With Minerals Tab PO SCH (09:09)
[2019-02-04] MEDS: Aspirin 325 mg EC Tablets PO SCH ×2 (09:09→16:52)
[2019-02-04] MEDS: Pantoprazole 40 mg EC Tab PO SCH (09:10)
--- NOTE | 2019-02-04 13:53 | CP.PCM.PN ---
Subjective - Date & Time of Evaluation Date of Evaluation: 02/04/19 Time of Evaluation: 13:00 - Subjective Subjective: NO CHEST PAIN OR SOB DOING OK AT REHAB Objective - Vital Signs/Intake and Output Vital Signs (last 24 hours): Temp Pulse Resp BP Pulse Ox 97.5 F L 94 H 18 158/75 H 97 02/04/19 10:00 02/04/19 10:00 02/04/19 10:00 02/04/19 10:00 02/04/19 10:00 - Medications Medications: Current Medications Acetaminophen (Tylenol 325mg Tab) 650 mg PO Q4 PRN PRN Reason: Pain, Mild (1-3) Last Admin: 02/03/19 21:15 Dose: 650 mg Acetaminophen/Codeine Phosphate (Tylenol/Codeine 300 Mg/30 Mg) 1 tab PO Q6 PRN PRN Reason: Pain, moderate (4-7) Last Admin: 02/03/19 16:02 Dose: 1 tab Aspirin (Ecotrin) 325 mg PO BID [facility] Last Admin: 02/04/19 09:09 Dose: 325 mg Atenolol (Tenormin) 50 mg PO DAILY [facility] Last Admin: 02/04/19 09:10 Dose: 50 mg Atorvastatin Calcium (Lipitor) 10 mg PO DAILY [facility] Last Admin: 02/04/19 09:11 Dose: 10 mg Bacitracin (Bacitracin Oint) 1 applic TOP BID [facility] Last Admin: 02/04/19 09:08 Dose: 1 applic Benzocaine/Menthol (Dermoplast) 1 sprays TOP PRN PRN PRN Reason: Excoriation Calcium Carbonate (Oscal) 500 mg PO DAILY [facility] Last Admin: 02/04/19 09:10 Dose: 500 mg Celecoxib (Celebrex) 200 mg PO BID [facility] Last Admin: 02/04/19 09:10 Dose: 200 mg Clonazepam (Klonopin) 0.5 mg PO DAILY [facility] Last Admin: 02/04/19 09:08 Dose: 0.5 mg Duloxetine HCl (Cymbalta) 30 mg PO Q12 PRN PRN Reason: Anxiety Last Admin: 02/01/19 21:34 Dose: 30 mg Hydrochlorothiazide (Microzide) 12.5 mg PO DAILY [facility] Last Admin: 02/04/19 09:10 Dose: 12.5 mg Multivitamins/Minerals (Therapeutic-M Tab) 1 tab PO DAILY [facility] Last Admin: 02/04/19 09:09 Dose: 1 tab Pantoprazole Sodium (Protonix Ec Tab) 40 mg PO DAILY [facility] Last Admin: 02/04/19 09:10 Dose: 40 mg Silver Sulfadiazine (Silvadene 1% 50 Gm) 1 applic TOP BID [facility] Last Admin: 02/04/19 09:08 Dose: 1 applic Simethicone (Mylicon Chew Tab) 80 mg PO Q8 PRN PRN Reason: Flatulence Tramadol HCl (Ultram) 50 mg PO Q6 PRN PRN Reason: pain 8-10 - Labs Labs: 01/31/19 05:40 02/02/19 05:20 - Respiratory Exam Respiratory Exam: Clear to Ausculation Bilateral - Cardiovascular Exam Cardiovascular Exam: REGULAR RHYTHM, +S1, +S2, Murmur - Extremities Exam Additional comments: NO LE EDEMA Assessment and Plan - Assessment and Plan (Free Text) Assessment: S/P FALL WITH LEFT FEMUR FRACTURE AND SURGICAL REPAIR AORTIC STENOSIS HYPERTENSION HYPERLIPIDEMIA Plan: CONTINUE ASPIRIN, ATENOLOL AND ATORVASTATIN CONTINUE ACUTE REHAB
[2019-02-05] MEDS: Aspirin 325 mg EC Tablets PO SCH ×2 (08:42→16:52)
[2019-02-05] MEDS: Pantoprazole 40 mg EC Tab PO SCH (08:43)
--- NOTE | 2019-02-05 08:43 | CP.PCM.PN ---
Subjective - Date & Time of Evaluation Date of Evaluation: 02/05/19 Time of Evaluation: 08:00 - Subjective Subjective: Patient seen and examined at bedside comfortable. Pain is well controlled, no pain with WB. No other complaints. Denies CP/SOB/fever/dizziness. Objective - Vital Signs/Intake and Output Vital Signs (last 24 hours): Temp Pulse Resp BP Pulse Ox 98.4 F 82 20 137/77 99 02/04/19 20:06 02/04/19 20:06 02/04/19 20:06 02/04/19 20:06 02/04/19 20:06 - Medications Medications: Current Medications Acetaminophen (Tylenol 325mg Tab) 650 mg PO Q4 PRN PRN Reason: Pain, Mild (1-3) Last Admin: 02/03/19 21:15 Dose: 650 mg Acetaminophen/Codeine Phosphate (Tylenol/Codeine 300 Mg/30 Mg) 1 tab PO Q6 PRN PRN Reason: Pain, moderate (4-7) Last Admin: 02/03/19 16:02 Dose: 1 tab Aspirin (Ecotrin) 325 mg PO BID [facility] Last Admin: 02/04/19 16:52 Dose: 325 mg Atenolol (Tenormin) 50 mg PO DAILY [facility] Last Admin: 02/04/19 09:10 Dose: 50 mg Atorvastatin Calcium (Lipitor) 10 mg PO DAILY [facility] Last Admin: 02/04/19 09:11 Dose: 10 mg Bacitracin (Bacitracin Oint) 1 applic TOP BID [facility] Last Admin: 02/04/19 16:53 Dose: 1 applic Benzocaine/Menthol (Dermoplast) 1 sprays TOP PRN PRN PRN Reason: Excoriation Calcium Carbonate (Oscal) 500 mg PO DAILY [facility] Last Admin: 02/04/19 09:10 Dose: 500 mg Celecoxib (Celebrex) 200 mg PO BID [facility] Last Admin: 02/04/19 16:52 Dose: 200 mg Clonazepam (Klonopin) 0.5 mg PO DAILY [facility] Last Admin: 02/04/19 09:08 Dose: 0.5 mg Clonazepam (Klonopin) 0.5 mg PO HS PRN PRN Reason: Insomnia Last Admin: 02/04/19 21:51 Dose: 0.5 mg Duloxetine HCl (Cymbalta) 30 mg PO Q12 PRN PRN Reason: Anxiety Last Admin: 02/01/19 21:34 Dose: 30 mg Hydrochlorothiazide (Microzide) 12.5 mg PO DAILY [facility] Last Admin: 02/04/19 09:10 Dose: 12.5 mg Multivitamins/Minerals (Therapeutic-M Tab) 1 tab PO DAILY [facility] Last Admin: 02/04/19 09:09 Dose: 1 tab Pantoprazole Sodium (Protonix Ec Tab) 40 mg PO DAILY [facility] Last Admin: 02/04/19 09:10 Dose: 40 mg Silver Sulfadiazine (Silvadene 1% 50 Gm) 1 applic TOP BID [facility] Last Admin: 02/04/19 16:52 Dose: 1 applic Simethicone (Mylicon Chew Tab) 80 mg PO Q8 PRN PRN Reason: Flatulence Tramadol HCl (Ultram) 50 mg PO Q6 PRN PRN Reason: pain 8-1010 - Labs Labs: 01/31/19 05:40 02/02/19 05:20 - Extremities Exam Additional comments: LLE: distal dressings CDI, proximal dressings CDI no drainage proximal hip blister well healed incisions CDI with jostin moderate swelling to thigh, improved sensation intact SP/DP/TN motor intact EHl/FHL/TA/G pedal pulse intact calves soft N Assessment and Plan (1) Femur fracture Assessment & Plan: POD# 11 s/p L femur fx ORIF with IM nail -Dry dressings to wounds -DVT ppx -pain control -PT/OT WBAT -orthopedically stable -above d/w Dr. Alvarez in agreement Status: Acute
[2019-02-05] MEDS: Multivitamin With Minerals Tab PO SCH (08:44)
[2019-02-05] MEDS: Bacitracin OINT 15GM TOP SCH ×2 (08:45→16:52)
[2019-02-05] MEDS: Silver Sulfadiazine 1% CREAM (50 gm) TOP SCH ×2 (08:45→16:52)
[2019-02-05] MEDS: Acetaminophen-Codeine 300/30 mg Tab PO PRN (10:41)
[2019-02-05 16:35] LABS: BASO # 0.1 K/uL (0.0-0.2); BASO % 0.7 % (0.0-2.0); EOS # 0.1 K/uL (0.0-0.7); EOS % 1.6 % (0.0-4.0); HEMOGLOBIN 10.4 g/dL (12.0-16.0); LYMPH # 1.7 K/uL (1.0-4.3); LYMPH % 18.2 % (20.0-40.0); MEAN CELL VOLUME 95.9 fl (81.0-99.0); MEAN CORPUSCULAR HEMOGLOBIN 31.4 pg (27.0-31.0); MEAN CORPUSCULAR HGB CONC 32.7 g/dL (33.0-37.0); MEAN PLATELET VOLUME 8.9 fl (7.2-11.7); NEUT # 6.2 K/uL (1.8-7.0); NEUT % 68.5 % (50.0-75.0); NRBC % 0.2 % (0.0-0.0); RBC 3.31 Mil/uL (3.80-5.20); RED CELL DISTRIBUTION WIDTH 14.7 % (11.5-14.5); WHITE BLOOD COUNT 9.1 K/uL (4.8-10.8)
[2019-02-05] MEDS ORDERED: Magnesium Sulfate 2 gm/50 ml 2 GM/50 ML BAG IVPB ONE (17:37)
[2019-02-05] MEDS ORDERED: Sodium Chloride 0.9% 500 ML IV ONE (17:37)
--- NOTE | 2019-02-05 17:45 | CP.PCM.PN ---
Subjective - Date & Time of Evaluation Date of Evaluation: 02/05/19 Time of Evaluation: 15:00 - Subjective Subjective: Patient was seen and evaluated at bedside. Patient states she feels "lousy" this afternoon. Patient was feeling well this morning, and was able to do her physical therapy without any complains. But this afternoon she started feeling "lousy", cramps sensation in her upper extremities, generalized weakness. Denies chest pain, SOB, dizziness, blurry vision, focal weakness, tingling or numbness, N/V, abdominal pain, urinary symptoms. Patient took Klonopin last night and this morning. Objective - Vital Signs/Intake and Output Vital Signs (last 24 hours): Temp Pulse Resp BP Pulse Ox 97.7 F 101 H 18 140/82 98 02/05/19 10:00 02/05/19 10:00 02/05/19 10:00 02/05/19 10:00 02/05/19 10:00 - Medications Medications: Current Medications Acetaminophen (Tylenol 325mg Tab) 650 mg PO Q4 PRN PRN Reason: Pain, Mild (1-3) Last Admin: 02/03/19 21:15 Dose: 650 mg Acetaminophen/Codeine Phosphate (Tylenol/Codeine 300 Mg/30 Mg) 1 tab PO Q6 PRN PRN Reason: Pain, moderate (4-7) Last Admin: 02/05/19 10:41 Dose: 1 tab Aspirin (Ecotrin) 325 mg PO BID [facility] Last Admin: 02/05/19 16:52 Dose: 325 mg Atenolol (Tenormin) 50 mg PO DAILY [facility] Last Admin: 02/05/19 08:44 Dose: 50 mg Atorvastatin Calcium (Lipitor) 10 mg PO DAILY [facility] Last Admin: 02/05/19 08:42 Dose: 10 mg Bacitracin (Bacitracin Oint) 1 applic TOP BID [facility] Last Admin: 02/05/19 16:52 Dose: 1 applic Benzocaine/Menthol (Dermoplast) 1 sprays TOP PRN PRN PRN Reason: Excoriation Calcium Carbonate (Oscal) 500 mg PO DAILY [facility] Last Admin: 02/05/19 08:43 Dose: 500 mg Celecoxib (Celebrex) 200 mg PO BID [facility] Last Admin: 02/05/19 16:51 Dose: 200 mg Clonazepam (Klonopin) 0.5 mg PO HS PRN PRN Reason: Insomnia Last Admin: 02/04/19 21:51 Dose: 0.5 mg Duloxetine HCl (Cymbalta) 30 mg PO Q12 PRN PRN Reason: Anxiety Last Admin: 02/01/19 21:34 Dose: 30 mg Hydrochlorothiazide (Microzide) 12.5 mg PO DAILY [facility] Last Admin: 02/05/19 08:43 Dose: 12.5 mg Magnesium Sulfate 2 gm/ Sodium (Chloride) 104 mls @ 104 mls/hr IVPB ONCE ONE Stop: 02/05/19 18:36 Sodium Chloride (Sodium Chloride 0.9%) 500 mls @ 500 mls/hr IV .Q1H ONE Stop: 02/05/19 18:36 Multivitamins/Minerals (Therapeutic-M Tab) 1 tab PO DAILY [facility] Last Admin: 02/05/19 08:44 Dose: 1 tab Pantoprazole Sodium (Protonix Ec Tab) 40 mg PO DAILY [facility] Last Admin: 02/05/19 08:43 Dose: 40 mg Silver Sulfadiazine (Silvadene 1% 50 Gm) 1 applic TOP BID [facility] Last Admin: 02/05/19 16:52 Dose: 1 applic Simethicone (Mylicon Chew Tab) 80 mg PO Q8 PRN PRN Reason: Flatulence Tramadol HCl (Ultram) 50 mg PO Q6 PRN PRN Reason: pain 8-1010 Last Admin: 02/05/19 14:46 Dose: 50 mg - Labs Labs: 02/05/19 16:07 02/05/19 16:07 - Constitutional Appears: Non-toxic, No Acute Distress - Head Exam Head Exam: NORMAL INSPECTION - Eye Exam Eye Exam: Normal appearance - ENT Exam ENT Exam: Mucous Membranes Dry - Respiratory Exam Respiratory Exam: Clear to Ausculation Bilateral, NORMAL BREATHING PATTERN - Cardiovascular Exam Cardiovascular Exam: REGULAR RHYTHM, +S1, +S2 - GI/Abdominal Exam GI & Abdominal Exam: Soft, Normal Bowel Sounds. absent: Tenderness - Extremities Exam Extremities Exam: Normal Inspection. absent: Calf Tenderness, Pedal Edema - Neurological Exam Neurological Exam: Alert, Awake, CN II-XII Intact, Oriented x3. absent: Altered, Motor Sensory Deficit Neuro motor strength exam: Left Upper Extremity: 5, Right Upper Extremity: 5, Left Lower Extremity: 5, Right Lower Extremity: 5 - Skin Skin Exam: Dry, Intact, Normal Color Assessment and Plan - Assessment and Plan (Free Text) Assessment: 78 yo female with PMHx of HTN, HLD, SLE, Seizure, R breast Cancer and osteoporosis s/p left femur displaced fracture and s/p IM nail POD 9 now admitted to Acute rehab for PT and OT. Plan: Muscles cramps: -will send for labs to check hgb, renal function, and electrolytes -DC klonopin daily, and c/w Klonopin PRN Displaced Left Femoral shaft Fracture, s/p IM nail - Pain management: toradol for mild and moderate, Morphine for severe. - Orthopedic Surgery consult, Dr Alvarez. - PT/OT Acute blood loss anemia - H/H stable - s/p 2 units PRBC - asymptomatic Constipation possible medicine induced, improving - d/c colace -having normal daily BMs -check for BM ?SLE/?RA - Chronic - cont Home meds HTN - Chronic, controlled - c/ home meds - Cardiology consulted, recs appreciated HLD - Chronic - Home meds resumed h/o Anxiety - clonipin 0.5 mg started Hx of Seizure - Last episode 2 years ago. -Not on chronic medication anymore. DVT Prophylaxis - on ASA 325 BID per Ortho recs. - SCD for R lower leg only GI ppx Protonix daily
--- NOTE | 2019-02-05 18:02 | CP.PCM.PN ---
Subjective - Date & Time of Evaluation Date of Evaluation: 02/05/19 Time of Evaluation: 18:00 - Subjective Subjective: Evelio Torres, born 1940 who has been admitted to [facility] acute inpatient rehabilitation following a mechanical fall with left femur fracture and underwent ORIF. Left leg swelling and doppler was negative for DVT Reduced pain and improved ROM Had an episode of upper body cramping which has happened in the past and she says also occurs with other members of the family. not sure of past work ups Ca2+ and K+ were reported as normal pain is controlled Objective - Vital Signs/Intake and Output Vital Signs (last 24 hours): Temp Pulse Resp BP Pulse Ox 97.7 F 101 H 18 140/82 98 02/05/19 10:00 02/05/19 10:00 02/05/19 10:00 02/05/19 10:00 02/05/19 10:00 - Medications Medications: Current Medications Acetaminophen (Tylenol 325mg Tab) 650 mg PO Q4 PRN PRN Reason: Pain, Mild (1-3) Last Admin: 02/03/19 21:15 Dose: 650 mg Acetaminophen/Codeine Phosphate (Tylenol/Codeine 300 Mg/30 Mg) 1 tab PO Q6 PRN PRN Reason: Pain, moderate (4-7) Last Admin: 02/05/19 10:41 Dose: 1 tab Aspirin (Ecotrin) 325 mg PO BID [facility] Last Admin: 02/05/19 16:52 Dose: 325 mg Atenolol (Tenormin) 50 mg PO DAILY [facility] Last Admin: 02/05/19 08:44 Dose: 50 mg Atorvastatin Calcium (Lipitor) 10 mg PO DAILY [facility] Last Admin: 02/05/19 08:42 Dose: 10 mg Bacitracin (Bacitracin Oint) 1 applic TOP BID [facility] Last Admin: 02/05/19 16:52 Dose: 1 applic Benzocaine/Menthol (Dermoplast) 1 sprays TOP PRN PRN PRN Reason: Excoriation Calcium Carbonate (Oscal) 500 mg PO DAILY [facility] Last Admin: 02/05/19 08:43 Dose: 500 mg Celecoxib (Celebrex) 200 mg PO BID [facility] Last Admin: 02/05/19 16:51 Dose: 200 mg Clonazepam (Klonopin) 0.5 mg PO HS PRN PRN Reason: Insomnia Last Admin: 02/04/19 21:51 Dose: 0.5 mg Duloxetine HCl (Cymbalta) 30 mg PO Q12 PRN PRN Reason: Anxiety Last Admin: 02/01/19 21:34 Dose: 30 mg Hydrochlorothiazide (Microzide) 12.5 mg PO DAILY [facility] Last Admin: 02/05/19 08:43 Dose: 12.5 mg Magnesium Sulfate (Magnesium Sulfate 2 Gm/50 Ml Water) 2 gm in 50 mls @ 50 mls/hr IVPB ONCE ONE Stop: 02/05/19 18:36 Sodium Chloride (Sodium Chloride 0.9%) 500 mls @ 500 mls/hr IV .Q1H ONE Stop: 02/05/19 18:36 Multivitamins/Minerals (Therapeutic-M Tab) 1 tab PO DAILY [facility] Last Admin: 02/05/19 08:44 Dose: 1 tab Pantoprazole Sodium (Protonix Ec Tab) 40 mg PO DAILY [facility] Last Admin: 02/05/19 08:43 Dose: 40 mg Silver Sulfadiazine (Silvadene 1% 50 Gm) 1 applic TOP BID [facility] Last Admin: 02/05/19 16:52 Dose: 1 applic Simethicone (Mylicon Chew Tab) 80 mg PO Q8 PRN PRN Reason: Flatulence Tramadol HCl (Ultram) 50 mg PO Q6 PRN PRN Reason: pain 8-08/16 Last Admin: 02/05/19 14:46 Dose: 50 mg - Labs Labs: 02/05/19 16:07 02/05/19 16:07 - Constitutional Appears: Well, Non-toxic, No Acute Distress - Head Exam Head Exam: ATRAUMATIC, NORMAL INSPECTION, NORMOCEPHALIC - Eye Exam Eye Exam: EOMI - ENT Exam ENT Exam: Mucous Membranes Moist - Respiratory Exam Respiratory Exam: NORMAL BREATHING PATTERN - Cardiovascular Exam Cardiovascular Exam: REGULAR RHYTHM - GI/Abdominal Exam GI & Abdominal Exam: Normal Bowel Sounds. absent: Guarding - Extremities Exam Extremities Exam: absent: Calf Tenderness (though left calf is larger on post op side. doppler neg. in past study) - Neurological Exam Neurological Exam: Alert, Awake, CN II-XII Intact - Psychiatric Exam Psychiatric exam: Normal Affect, Normal Mood - Skin Skin Exam: Warm (jostin CDI) Assessment and Plan - Assessment and Plan (Free Text) Assessment: PT/OT to continue to help increase functional independence Team conference for d/c planning Pain: controlled Vascular: no evidence of DVT GI: No evidence of constipation or diarrhea Patient continues to be an excellent acute rehabilitation candidate and will have continued focused pain management, PT, OT and recreational therapy to help facilitate a safe and appropriate d/c plan
[2019-02-06 06:09] LABS: BLOOD UREA NITROGEN 24 mg/dl (7-17); CALCIUM 8.7 mg/dL (8.4-10.2); GFR NON-AFRICAN AMERICAN > 60
[2019-02-06] MEDS: Bacitracin OINT 15GM TOP SCH ×2 (08:43→16:20)
[2019-02-06] MEDS: Silver Sulfadiazine 1% CREAM (50 gm) TOP SCH ×2 (08:43→16:20)
[2019-02-06] MEDS: Multivitamin With Minerals Tab PO SCH (08:44)
[2019-02-06] MEDS: Aspirin 325 mg EC Tablets PO SCH ×2 (08:44→16:21)
[2019-02-06] MEDS: Pantoprazole 40 mg EC Tab PO SCH (08:45)
--- NOTE | 2019-02-06 09:01 | CP.PCM.PN ---
Subjective - Date & Time of Evaluation Date of Evaluation: 02/06/19 Time of Evaluation: 08:00 - Subjective Subjective: Patient seen and examined at bedside with Dr. Alvarez. Pain is well controlled and tolerating PT well. No other complaints. Objective - Vital Signs/Intake and Output Vital Signs (last 24 hours): Temp Pulse Resp BP Pulse Ox 97.6 F 77 20 144/66 98 02/06/19 07:14 02/06/19 08:45 02/06/19 07:14 02/06/19 07:14 02/05/19 20:00 - Medications Medications: Current Medications Acetaminophen (Tylenol 325mg Tab) 650 mg PO Q4 PRN PRN Reason: Pain, Mild (1-3) Last Admin: 02/03/19 21:15 Dose: 650 mg Acetaminophen/Codeine Phosphate (Tylenol/Codeine 300 Mg/30 Mg) 1 tab PO Q6 PRN PRN Reason: Pain, moderate (4-7) Last Admin: 02/05/19 10:41 Dose: 1 tab Aspirin (Ecotrin) 325 mg PO BID [facility] Last Admin: 02/06/19 08:44 Dose: 325 mg Atenolol (Tenormin) 50 mg PO DAILY [facility] Last Admin: 02/06/19 08:45 Dose: 50 mg Atorvastatin Calcium (Lipitor) 10 mg PO DAILY [facility] Last Admin: 02/06/19 08:44 Dose: 10 mg Bacitracin (Bacitracin Oint) 1 applic TOP BID [facility] Last Admin: 02/06/19 08:43 Dose: 1 applic Benzocaine/Menthol (Dermoplast) 1 sprays TOP PRN PRN PRN Reason: Excoriation Calcium Carbonate (Oscal) 500 mg PO DAILY [facility] Last Admin: 02/06/19 08:45 Dose: 500 mg Celecoxib (Celebrex) 200 mg PO BID [facility] Last Admin: 02/06/19 08:44 Dose: 200 mg Clonazepam (Klonopin) 0.5 mg PO HS PRN PRN Reason: Insomnia Last Admin: 02/04/19 21:51 Dose: 0.5 mg Duloxetine HCl (Cymbalta) 30 mg PO Q12 PRN PRN Reason: Anxiety Last Admin: 02/06/19 08:45 Dose: 30 mg Hydrochlorothiazide (Microzide) 12.5 mg PO DAILY [facility] Last Admin: 02/06/19 08:44 Dose: 12.5 mg Multivitamins/Minerals (Therapeutic-M Tab) 1 tab PO DAILY [facility] Last Admin: 02/06/19 08:44 Dose: 1 tab Pantoprazole Sodium (Protonix Ec Tab) 40 mg PO DAILY [facility] Last Admin: 02/06/19 08:45 Dose: 40 mg Silver Sulfadiazine (Silvadene 1% 50 Gm) 1 applic TOP BID [facility] Last Admin: 02/06/19 08:43 Dose: 1 applic Simethicone (Mylicon Chew Tab) 80 mg PO Q8 PRN PRN Reason: Flatulence Tramadol HCl (Ultram) 50 mg PO Q6 PRN PRN Reason: pain 8-08/16 Last Admin: 02/05/19 14:46 Dose: 50 mg - Labs Labs: 02/05/19 16:07 02/06/19 05:47 - Extremities Exam Additional comments: LLE: distal dressings CDI, proximal dressings CDI moderate swelling to thigh, improved sensation intact SP/DP/TN motor intact EHl/FHL/TA/G pedal pulse intact calves soft N Assessment and Plan (1) Femur fracture Assessment & Plan: POD# 12 s/p L femur fx ORIF with IM nail -DVT ppx -pain control -PT/OT WBAT -orthopedically stable -above d/w Dr. Alvarez in agreement Status: Acute
--- NOTE | 2019-02-06 10:34 | CP.PCM.PN ---
Subjective - Date & Time of Evaluation Date of Evaluation: 02/06/19 Time of Evaluation: 09:00 - Subjective Subjective: NO CHEST PAIN OR SOB DOING OK WITH REHAB Objective - Vital Signs/Intake and Output Vital Signs (last 24 hours): Temp Pulse Resp BP Pulse Ox 97.6 F 77 20 144/66 98 02/06/19 07:14 02/06/19 08:45 02/06/19 07:14 02/06/19 07:14 02/05/19 20:00 - Medications Medications: Current Medications Acetaminophen (Tylenol 325mg Tab) 650 mg PO Q4 PRN PRN Reason: Pain, Mild (1-3) Last Admin: 02/03/19 21:15 Dose: 650 mg Acetaminophen/Codeine Phosphate (Tylenol/Codeine 300 Mg/30 Mg) 1 tab PO Q6 PRN PRN Reason: Pain, moderate (4-7) Last Admin: 02/05/19 10:41 Dose: 1 tab Aspirin (Ecotrin) 325 mg PO BID [facility] Last Admin: 02/06/19 08:44 Dose: 325 mg Atenolol (Tenormin) 50 mg PO DAILY [facility] Last Admin: 02/06/19 08:45 Dose: 50 mg Atorvastatin Calcium (Lipitor) 10 mg PO DAILY [facility] Last Admin: 02/06/19 08:44 Dose: 10 mg Bacitracin (Bacitracin Oint) 1 applic TOP BID [facility] Last Admin: 02/06/19 08:43 Dose: 1 applic Benzocaine/Menthol (Dermoplast) 1 sprays TOP PRN PRN PRN Reason: Excoriation Calcium Carbonate (Oscal) 500 mg PO DAILY [facility] Last Admin: 02/06/19 08:45 Dose: 500 mg Celecoxib (Celebrex) 200 mg PO BID [facility] Last Admin: 02/06/19 08:44 Dose: 200 mg Clonazepam (Klonopin) 0.5 mg PO HS PRN PRN Reason: Insomnia Last Admin: 02/04/19 21:51 Dose: 0.5 mg Duloxetine HCl (Cymbalta) 30 mg PO Q12 PRN PRN Reason: Anxiety Last Admin: 02/06/19 08:45 Dose: 30 mg Hydrochlorothiazide (Microzide) 12.5 mg PO DAILY [facility] Last Admin: 02/06/19 08:44 Dose: 12.5 mg Multivitamins/Minerals (Therapeutic-M Tab) 1 tab PO DAILY [facility] Last Admin: 02/06/19 08:44 Dose: 1 tab Pantoprazole Sodium (Protonix Ec Tab) 40 mg PO DAILY [facility] Last Admin: 02/06/19 08:45 Dose: 40 mg Silver Sulfadiazine (Silvadene 1% 50 Gm) 1 applic TOP BID [facility] Last Admin: 02/06/19 08:43 Dose: 1 applic Simethicone (Mylicon Chew Tab) 80 mg PO Q8 PRN PRN Reason: Flatulence Tramadol HCl (Ultram) 50 mg PO Q6 PRN PRN Reason: pain 8-08/16 Last Admin: 02/05/19 14:46 Dose: 50 mg - Labs Labs: 02/05/19 16:07 02/06/19 05:47 - Respiratory Exam Respiratory Exam: Clear to Ausculation Bilateral - Cardiovascular Exam Cardiovascular Exam: REGULAR RHYTHM, +S1, +S2 Assessment and Plan - Assessment and Plan (Free Text) Assessment: HYPERTENSION HYPERLIPIDEMIA MECHANICAL FALL AND SURGICAL REPAIR OF LEFT FEMUR FRACTURE Plan: CONTINUE ASPIRIN, ATENOLOL AND ATORVASTATIN CONTINUE REHAB
[2019-02-06] MEDS ORDERED: Potassium Chloride 20 mEq ER Tab PO ONE (11:43)
[2019-02-06] MEDS: Acetaminophen-Codeine 300/30 mg Tab PO PRN ×2 (13:07→22:12)
--- NOTE | 2019-02-06 13:52 | PCM.PSYTMC ---
Acute Rehab Team Conference - - Vital Signs: Vital Signs (Last 8 Hours): Vital Signs 02/06/19 02/06/19 02/06/19 07:14 08:45 10:00 Temperature 97.6 F 97.2 F L Pulse Rate 77 77 88 Respiratory 20 20 Rate Blood Pressure 144/66 144/78 O2 Sat by Pulse 99 Oximetry Pain: 5 - Medications/Other Issues: Comment: none - Skin: Incision Site: left femur Dressing Status: Clean, Dry, Intact Incision: Healing Well Incision Line Treatment: bacitracin - Toileting: Toileting: Moderate Assistance - Bladder Management: Bladder Pattern: Normal Voiding Method: Toilet Bladder Management: Modified Independent - Transfers: Transfers: Moderate Assistance - Pain Management: Other Intervention:: on prn medication for pain - Patient/Family Teaching: Other Intervention:: re: pain management. patient needs reinforcement - Goals/Time Frame: Comment: patient to be freee from pain and participate with therapy without any pain. - Provider: Registered Nurse:: Rustam Biggs Physical Therapy - Bed Mobility Bed Mobility: Verbal Cues, Minimal Assistance Comment: vc for sequenicng, difficulty advancing LLE - Transfers Wheelchair to Mat: Verbal Cues, Contact Guard, Minimal Assistance Sit to Stand: Verbal Cues, Contact Guard, Minimal Assistance Comment: vc for sequencing and safety, larua hand placement and to scoot fwd prior to standing. pt needs mod/max vc to continue scooting fwd on seated surface prior to standing (CS to perform). Pt's quality and stability flucutates during t/f. Pt w/ 1 episode of post instability upon standing w/ min A to recover. - Ambulation Level of Assistance: Verbal Cues, Minimal Assistance Distance (ft.): 75 Assistive Devices: Rolling Walker Orthoses: (donning pt's own R patellar cut out neoprene brace w/ 3 straps) Comment: 75' multiple times. (donning pt's own R patellar cut out neoprene brace w/ 3 straps). mod vc for step to pattern and to look up during task, decr'd gait speed, decr'd B push off, early B foot flat. 1 episode of incr'd instability during gait, CG to recover - Stair Negotiation Stairs: Level of Assistance: Verbal Cues, Moderate Assistance Number of Stairs: 3 Handrails: Bilateral Comment: (yasmin pt's own R patellar cut out neoprene brace w/ 3 straps). 4 in steps, step to pattern. task performed x2 w/ extended rest period in between bouts. (yasmin pt's own R patellar cut out neoprene brace w/ 3 straps). 1st bout - asc w/ R, desc w/ L (min A x1, CS/CG x 1). 2nd bout - asc w/ R, desc w/ L, episode of L knee buckling during asc w/ mod A to recover (mod A x 1, min A/CG x 1) - Standing Balance Static Stand: Contact Guard Assist Comment: w/ RW - Pain Pain (assessed during therapy session): 6 Alleviating Techniques: Medication, Position Change, Relaxation Techniques, Exercise, Inactivity Comment: L hip/thigh - Insight/Carryover Insight/Carryover: Fair - Patient/Family Education Comment: femur fx/ORIF related topics, DBE, importance of being OOB, posture, DME, safety/falls, fxnl mob, PWB LLE, cardiac prec, PT goals, POC - Assessment/Plan Assessment: 78 yo female is continuing her acute rehab stay at [facility] 6N unit s/p L femur fx w/ ORIF, PWB LLE. Pt's fxnl status fluctuates secondary to premorbid BLE strength/ROM/musculoskeletal deficits. Pt requires min/mod A for t/f, CG/min A for RW amb and mod A x 1 w/ CG/min A x 1 for stairs. Pt's intermittent episodes of dizziness and diaphoresis during ambulatory tasks are limiting factors. Pt is very motivated and cooperative. Cont'd skilled PT recommended to maximize fxnl mob, balance, activity tolerance, strength and safety. - Goals Timeframe: 2 weeks Goals: -mod I to ambulate 50 feet with RW (house hold independent). -S to ambulate 150 feet with RW on all surfaces. mod I to perform sit to/from stand and stand pivot transfers with RW. mod I to perform bed/mat mobility including supine to/from sit and rolling - Provider Physical Therapist:: Aurelia Calderon License Number:: [id number] Occupational Therapy - Arousal/Attention/Orientation Level of Consciousness: Awake, Alert Patient Orientation: Person, Place, Time, Appropriate to Age, Appropriate to Situation - ADL/IADL Self Feeding: Set-up Help Grooming: Set-up Help Bathing-Upper Ext: Supervision Bathing-Lower Ext: Minimal Assistance Dressing-Upper Ext: Supervision, Verbal Cues Dressing-Lower Ext: Verbal Cues, Minimal Assistance Comment: uses lower body AE - Sitting Balance Static Sitting: Independent with upper extremity support Dynamic Sitting: Requires supervision - Transfers Wheelchair to Bed Transfers: Minimal Assistance, Moderate Assistance Toilet Transfers: Minimal Assistance, Moderate Assistance Tub Transfers: Moderate Assistance Comment: tub transfers tba. transfers vary from min-mod A depending on pain/anxiety levels - Wheelchair Management Level of Assistance: Minimal Assistance Distance (ft.): 75 - Upper Extremity Status Right Upper Extremity Comment: AROM WFLs 4-/5. patient with intermittent shoulder/tricep pain 2' arthritis Left Upper Extremity Comment: AROM 4/5. patient with intermittent shoulder pain 2' arthritis - Pain Pain (assessed during therapy session): 7 Alleviating Techniques: Medication Comment: pain in LLE, R shoulder with movement , decreases with position change and medication - Insight/Carryover Insight/Carryover: Good - Patient/Family Education Comment: dme/ae education, energy conservation/adaptive techniques , plan of care, OT goals - Assessment/Plan Assessment: Patient is a 78 yo f presents to [facility] s/p L [facility]. pt presents with high pain level in LLE, increased anxiety/fear of falling , intermittent shoulder pain , impaired dynamic standing balance/unsteadiness on feet - Goals Timeframe: 2 weeks - Provider Occupational Therapist:: Emma Whitaker License Number: [id number] Recreational Therapy - Participation Participation: Participates in Individual and/or Group Sessions - Attendance Attendance: 3-5 times per week - Activities Leisure Activities: Cards and Games - Socialization Level of Socialization: Initiates/interacts freely with care givers and peer - Assessment Assessment/Plan: Pt is agreeable to participate in recreation therapy sessions following encouragement. Pt benefits from recreation therapy for diversion from pain and anxiety. Pt participated in [employer] task and was independent with task. Pt will continue to benefit from participating in recreation therapy sessions offered on unit, will continue to encourage. Problems Currently Limiting Participation: pain, decrease activity tolerance level, decrease activity leisure awareness level, anxiety Goals and Time Frame: Pt will tolerate participating in leisure task for more than 30 minutes to improve activity tolerance level by date of discharge. - Provider Therapist: Tessie Acuna Nutrition - Current Diet Current Diet/Supplement/Feedings: Regular diet - Appetite Percent Meal Consumed: 75-100% - Assessment/Goals/Time Frame Assessments/Goals/Time Frame: Pt at low nutritional risk. no goals. Follow-up due on 02/14/2019 - Provider Provider: Marlin Braun Case Management - Psychosocial Assessment Support Systems: Ish gill) - [phone] Psychological Interventions/Needs: Patient is AAOx3 and able to verbalize needs Discharge Concerns: Pt is still requiring assistance and will likely still require assist at home Patient/Family Meeting: CM met with patient and rehab team. Intervention/Goal/Outcome: 1. Goal: 24hr supervision 2. Plan: home with VNS and resume homemaker services 3. order recommended DME 4. caregiver training scheduled for 02/13 @ 10:30am 5. continued acute rehab auth, LAD: 02/06- updates to be sent today 6. continued emotional support - Discharge Plan Discharge Plan: Home with services Home Services: [facility] Care? - Provider Provider: Shannan Tatum License Number: [id number] Rehabilitation Plan - Treatment Plan Treatment Plan: Physical Therapy, Occupational Therapy, Dietary, Pain Management, Wound Care, Patient/Family Education - Discharge Plan Estimated Date of Discharge: 02/15/19 Discharge to: Home
--- NOTE | 2019-02-06 14:06 | CP.PCM.PN ---
Subjective - Date & Time of Evaluation Date of Evaluation: 02/06/19 Time of Evaluation: 14:06 - Subjective Subjective: Patient seen in the room doing quite well today in good spirits denies sob/cp no cramping today continue current care Objective - Vital Signs/Intake and Output Vital Signs (last 24 hours): Temp Pulse Resp BP Pulse Ox 97.2 F L 88 20 144/78 99 02/06/19 10:00 02/06/19 10:00 02/06/19 10:00 02/06/19 10:00 02/06/19 10:00 - Medications Medications: Current Medications Acetaminophen (Tylenol 325mg Tab) 650 mg PO Q4 PRN PRN Reason: Pain, Mild (1-3) Last Admin: 02/03/19 21:15 Dose: 650 mg Acetaminophen/Codeine Phosphate (Tylenol/Codeine 300 Mg/30 Mg) 1 tab PO Q6 PRN PRN Reason: Pain, moderate (4-7) Last Admin: 02/06/19 13:07 Dose: 1 tab Aspirin (Ecotrin) 325 mg PO BID [facility] Last Admin: 02/06/19 08:44 Dose: 325 mg Atenolol (Tenormin) 50 mg PO DAILY [facility] Last Admin: 02/06/19 08:45 Dose: 50 mg Atorvastatin Calcium (Lipitor) 10 mg PO DAILY [facility] Last Admin: 02/06/19 08:44 Dose: 10 mg Bacitracin (Bacitracin Oint) 1 applic TOP BID [facility] Last Admin: 02/06/19 08:43 Dose: 1 applic Benzocaine/Menthol (Dermoplast) 1 sprays TOP PRN PRN PRN Reason: Excoriation Calcium Carbonate (Oscal) 500 mg PO DAILY [facility] Last Admin: 02/06/19 08:45 Dose: 500 mg Celecoxib (Celebrex) 200 mg PO BID [facility] Last Admin: 02/06/19 08:44 Dose: 200 mg Clonazepam (Klonopin) 0.5 mg PO HS PRN PRN Reason: Insomnia Last Admin: 02/04/19 21:51 Dose: 0.5 mg Duloxetine HCl (Cymbalta) 30 mg PO Q12 PRN PRN Reason: Anxiety Last Admin: 02/06/19 08:45 Dose: 30 mg Hydrochlorothiazide (Microzide) 12.5 mg PO DAILY [facility] Last Admin: 02/06/19 08:44 Dose: 12.5 mg Multivitamins/Minerals (Therapeutic-M Tab) 1 tab PO DAILY [facility] Last Admin: 02/06/19 08:44 Dose: 1 tab Pantoprazole Sodium (Protonix Ec Tab) 40 mg PO DAILY [facility] Last Admin: 02/06/19 08:45 Dose: 40 mg Silver Sulfadiazine (Silvadene 1% 50 Gm) 1 applic TOP BID [facility] Last Admin: 02/06/19 08:43 Dose: 1 applic Simethicone (Mylicon Chew Tab) 80 mg PO Q8 PRN PRN Reason: Flatulence Tramadol HCl (Ultram) 50 mg PO Q6 PRN PRN Reason: pain 8-08/16 Last Admin: 02/05/19 14:46 Dose: 50 mg - Labs Labs: 02/05/19 16:07 02/06/19 05:47
[2019-02-07] MEDS: Multivitamin With Minerals Tab PO SCH (09:00)
[2019-02-07] MEDS: Bacitracin OINT 15GM TOP SCH ×2 (09:00→17:06)
[2019-02-07] MEDS: Aspirin 325 mg EC Tablets PO SCH ×2 (09:01→17:06)
[2019-02-07] MEDS: Pantoprazole 40 mg EC Tab PO SCH (09:02)
[2019-02-07] MEDS: Silver Sulfadiazine 1% CREAM (50 gm) TOP SCH ×2 (09:03→17:06)
[2019-02-07] MEDS: Acetaminophen-Codeine 300/30 mg Tab PO PRN (09:58)
--- NOTE | 2019-02-07 17:04 | CP.PCM.PN ---
Subjective - Date & Time of Evaluation Date of Evaluation: 02/07/19 Time of Evaluation: 17:04 - Subjective Subjective: Patient seen in the room doing well had some pain post rehab which responded well to Tramadol I adjusted some of the meds continue current care Objective - Vital Signs/Intake and Output Vital Signs (last 24 hours): Temp Pulse Resp BP Pulse Ox 99.1 F 96 H 20 162/81 H 96 02/07/19 07:59 02/07/19 09:02 02/07/19 07:59 02/07/19 09:02 02/07/19 07:59 - Medications Medications: Current Medications Acetaminophen (Tylenol 325mg Tab) 650 mg PO Q4 PRN PRN Reason: Pain, Mild (1-3) Last Admin: 02/06/19 15:35 Dose: 650 mg Acetaminophen/Codeine Phosphate (Tylenol/Codeine 300 Mg/30 Mg) 1 tab PO Q6 PRN PRN Reason: Pain 3-6/10 Aspirin (Ecotrin) 325 mg PO BID [facility] Last Admin: 02/07/19 09:01 Dose: 325 mg Atenolol (Tenormin) 50 mg PO DAILY [facility] Last Admin: 02/07/19 09:02 Dose: 50 mg Atorvastatin Calcium (Lipitor) 10 mg PO DAILY [facility] Last Admin: 02/07/19 09:04 Dose: 10 mg Bacitracin (Bacitracin Oint) 1 applic TOP BID [facility] Last Admin: 02/07/19 09:00 Dose: 1 applic Benzocaine/Menthol (Dermoplast) 1 sprays TOP PRN PRN PRN Reason: Excoriation Calcium Carbonate (Oscal) 500 mg PO DAILY [facility] Last Admin: 02/07/19 09:01 Dose: 500 mg Celecoxib (Celebrex) 200 mg PO BID [facility] Last Admin: 02/07/19 09:00 Dose: 200 mg Clonazepam (Klonopin) 0.5 mg PO HS PRN PRN Reason: Insomnia Last Admin: 02/04/19 21:51 Dose: 0.5 mg Duloxetine HCl (Cymbalta) 30 mg PO Q12 PRN PRN Reason: Anxiety Last Admin: 02/06/19 08:45 Dose: 30 mg Hydrochlorothiazide (Microzide) 12.5 mg PO DAILY [facility] Last Admin: 02/07/19 09:01 Dose: 12.5 mg Multivitamins/Minerals (Therapeutic-M Tab) 1 tab PO DAILY [facility] Last Admin: 02/07/19 09:00 Dose: 1 tab Pantoprazole Sodium (Protonix Ec Tab) 40 mg PO DAILY [facility] Last Admin: 02/07/19 09:02 Dose: 40 mg Silver Sulfadiazine (Silvadene 1% 50 Gm) 1 applic TOP BID [facility] Last Admin: 02/07/19 09:03 Dose: 1 applic Simethicone (Mylicon Chew Tab) 80 mg PO Q8 PRN PRN Reason: Flatulence Tramadol HCl (Ultram) 50 mg PO Q4 PRN PRN Reason: pain 7-10/10 - Labs Labs: 02/05/19 16:07 02/06/19 05:47
--- NOTE | 2019-02-08 09:39 | CP.PCM.PN ---
Subjective - Date & Time of Evaluation Date of Evaluation: 02/08/19 Time of Evaluation: 09:20 - Subjective Subjective: NO CHEST PAIN OR SOB DOING WELL AT REHAB Objective - Vital Signs/Intake and Output Vital Signs (last 24 hours): Temp Pulse Resp BP Pulse Ox 97.2 F L 89 18 146/77 100 02/08/19 07:28 02/08/19 07:28 02/08/19 07:28 02/08/19 07:28 02/08/19 07:28 - Medications Medications: Current Medications Acetaminophen (Tylenol 325mg Tab) 650 mg PO Q4 PRN PRN Reason: Pain, Mild (1-3) Last Admin: 02/06/19 15:35 Dose: 650 mg Acetaminophen/Codeine Phosphate (Tylenol/Codeine 300 Mg/30 Mg) 1 tab PO Q6 PRN PRN Reason: Pain 3-6/10 Aspirin (Ecotrin) 325 mg PO BID [facility] Last Admin: 02/07/19 17:06 Dose: 325 mg Atenolol (Tenormin) 50 mg PO DAILY [facility] Last Admin: 02/07/19 09:02 Dose: 50 mg Atorvastatin Calcium (Lipitor) 10 mg PO DAILY [facility] Last Admin: 02/07/19 09:04 Dose: 10 mg Bacitracin (Bacitracin Oint) 1 applic TOP BID [facility] Last Admin: 02/07/19 17:06 Dose: 1 applic Benzocaine/Menthol (Dermoplast) 1 sprays TOP PRN PRN PRN Reason: Excoriation Calcium Carbonate (Oscal) 500 mg PO DAILY [facility] Last Admin: 02/07/19 09:01 Dose: 500 mg Celecoxib (Celebrex) 200 mg PO BID [facility] Last Admin: 02/07/19 17:06 Dose: 200 mg Clonazepam (Klonopin) 0.5 mg PO HS PRN PRN Reason: Insomnia Last Admin: 02/04/19 21:51 Dose: 0.5 mg Duloxetine HCl (Cymbalta) 30 mg PO Q12 PRN PRN Reason: Anxiety Last Admin: 02/06/19 08:45 Dose: 30 mg Hydrochlorothiazide (Hydrodiuril) 25 mg PO DAILY [facility] Multivitamins/Minerals (Therapeutic-M Tab) 1 tab PO DAILY [facility] Last Admin: 02/07/19 09:00 Dose: 1 tab Pantoprazole Sodium (Protonix Ec Tab) 40 mg PO DAILY [facility] Last Admin: 02/07/19 09:02 Dose: 40 mg Silver Sulfadiazine (Silvadene 1% 50 Gm) 1 applic TOP BID [facility] Last Admin: 02/07/19 17:06 Dose: 1 applic Simethicone (Mylicon Chew Tab) 80 mg PO Q8 PRN PRN Reason: Flatulence Tramadol HCl (Ultram) 50 mg PO Q4 PRN PRN Reason: pain 7-10/10 - Labs Labs: 02/05/19 16:07 02/06/19 05:47 - Respiratory Exam Respiratory Exam: Clear to Ausculation Bilateral - Cardiovascular Exam Cardiovascular Exam: +S1, +S2, Murmur - Back Exam Additional comments: NO LE EDEMA Assessment and Plan - Assessment and Plan (Free Text) Assessment: SURGICAL REPAIR OF LEFT FEMUR FRACTURE AORTIC STENOSIS HYPERTENSION HYPERLIPIDEMIA Plan: CONTINUE ASPIRIN, ATENOLOL AND ATORVASTATIN CONTINUE REHAB
[2019-02-08] MEDS: Aspirin 325 mg EC Tablets PO SCH ×2 (09:50→17:02)
[2019-02-08] MEDS: Pantoprazole 40 mg EC Tab PO SCH (09:51)
[2019-02-08] MEDS: Multivitamin With Minerals Tab PO SCH (09:52)
[2019-02-08] MEDS: Bacitracin OINT 15GM TOP SCH ×2 (09:53→17:02)
[2019-02-08] MEDS: Silver Sulfadiazine 1% CREAM (50 gm) TOP SCH ×2 (09:53→17:02)
--- NOTE | 2019-02-08 12:11 | CP.PCM.PN ---
Subjective - Date & Time of Evaluation Date of Evaluation: 02/08/19 Time of Evaluation: 09:30 - Subjective Subjective: Patient was seen and evaluated with attending Dr. Tavarez this morning. Patient feels well this morning and doing better during physical therapy today. Yesterday pain medications were adjusted by physiatry because patient was reporting increase in pain intensity during and after PT session. Today has been better controlled. Noted BP has been slightly elevated. Objective - Vital Signs/Intake and Output Vital Signs (last 24 hours): Temp Pulse Resp BP Pulse Ox 97.2 F L 89 18 146/77 100 02/08/19 07:28 02/08/19 09:52 02/08/19 07:28 02/08/19 09:52 02/08/19 08:46 - Medications Medications: Current Medications Acetaminophen (Tylenol 325mg Tab) 650 mg PO Q4 PRN PRN Reason: Pain, Mild (1-3) Last Admin: 02/06/19 15:35 Dose: 650 mg Acetaminophen/Codeine Phosphate (Tylenol/Codeine 300 Mg/30 Mg) 1 tab PO Q6 PRN PRN Reason: Pain 3-6/10 Aspirin (Ecotrin) 325 mg PO BID [facility] Last Admin: 02/08/19 09:50 Dose: 325 mg Atenolol (Tenormin) 50 mg PO DAILY [facility] Last Admin: 02/08/19 09:52 Dose: 50 mg Atorvastatin Calcium (Lipitor) 10 mg PO DAILY [facility] Last Admin: 02/08/19 09:51 Dose: 10 mg Bacitracin (Bacitracin Oint) 1 applic TOP BID [facility] Last Admin: 02/08/19 09:53 Dose: 1 applic Benzocaine/Menthol (Dermoplast) 1 sprays TOP PRN PRN PRN Reason: Excoriation Calcium Carbonate (Oscal) 500 mg PO DAILY [facility] Last Admin: 02/08/19 09:53 Dose: 500 mg Celecoxib (Celebrex) 200 mg PO BID [facility] Last Admin: 02/08/19 09:52 Dose: 200 mg Clonazepam (Klonopin) 0.5 mg PO HS PRN PRN Reason: Insomnia Last Admin: 02/04/19 21:51 Dose: 0.5 mg Duloxetine HCl (Cymbalta) 30 mg PO Q12 PRN PRN Reason: Anxiety Last Admin: 02/06/19 08:45 Dose: 30 mg Hydrochlorothiazide (Hydrodiuril) 25 mg PO DAILY [facility] Last Admin: 02/08/19 09:53 Dose: 25 mg Multivitamins/Minerals (Therapeutic-M Tab) 1 tab PO DAILY [facility] Last Admin: 02/08/19 09:52 Dose: 1 tab Pantoprazole Sodium (Protonix Ec Tab) 40 mg PO DAILY [facility] Last Admin: 02/08/19 09:51 Dose: 40 mg Silver Sulfadiazine (Silvadene 1% 50 Gm) 1 applic TOP BID [facility] Last Admin: 02/08/19 09:53 Dose: 1 applic Simethicone (Mylicon Chew Tab) 80 mg PO Q8 PRN PRN Reason: Flatulence Tramadol HCl (Ultram) 50 mg PO Q4 PRN PRN Reason: pain 7-08/16 Last Admin: 02/08/19 09:50 Dose: 50 mg - Labs Labs: 02/05/19 16:07 02/06/19 05:47 - Skin Additional comments: Constitutional Appears: Non-toxic, No Acute Distress - Head Exam Head Exam: NORMAL INSPECTION - Eye Exam Eye Exam: Normal appearance - ENT Exam ENT Exam: Mucous Membranes Dry - Respiratory Exam Respiratory Exam: Clear to Ausculation Bilateral, NORMAL BREATHING PATTERN - Cardiovascular Exam Cardiovascular Exam: REGULAR RHYTHM, +S1, +S2 - GI/Abdominal Exam GI & Abdominal Exam: Soft, Normal Bowel Sounds. absent: Tenderness - Extremities Exam Extremities Exam: Normal Inspection. absent: Calf Tenderness, Pedal Edema - Neurological Exam Neurological Exam: Alert, Awake, CN II-XII Intact, Oriented x3. absent: Alte red, Motor Sensory Deficit Neuro motor strength exam: Left Upper Extremity: 5, Right Upper Extremity: 5, Left Lower Extremity: 5, Right Lower Extremity: 5 - Skin Skin Exam: Dry, Intact, Normal Color Assessment and Plan - Assessment and Plan (Free Text) Assessment: 78 yo female with PMHx of HTN, HLD, SLE, Seizure, R breast Cancer and osteoporosis s/p left femur displaced fracture and s/p IM nail POD 9 now admitted to Acute rehab for PT and OT. Plan: Hypomagnesemia -mild -resolved after replacement -s/p Magnesium 2 gm IV given Muscles cramps resolved -stable CBC -phosphorus WNL -magnesium slightly low 1.5 -DC klonopin daily, and c/w Klonopin PRN Displaced Left Femoral shaft Fracture, s/p IM nail - Pain management: toradol for mild and moderate, Morphine for severe. - Orthopedic Surgery consult, Dr Alvarez. - PT/OT Acute blood loss anemia - H/H stable - s/p 2 units PRBC - asymptomatic Constipation possible medicine induced, improving - d/c colace -having normal daily BMs -check for BMs ?SLE/?RA - Chronic - cont Home meds HTN - slightly elevated, asymptomatic -will monitor for now, could be 2/2 pain, pain medication adjusted yesterday by Dr. Matson. - c/ home meds - Cardiology consulted, recs appreciated HLD - Chronic - Home meds resumed h/o Anxiety - clonipin 0.5 mg started Hx of Seizure - Last episode 2 years ago. -Not on chronic medication anymore. DVT Prophylaxis - on ASA 325 BID per Ortho recs. - SCD for R lower leg only GI ppx Protonix daily
[2019-02-09] MEDS: Bacitracin OINT 15GM TOP SCH ×2 (08:43→17:19)
[2019-02-09] MEDS: Silver Sulfadiazine 1% CREAM (50 gm) TOP SCH ×2 (08:44→17:19)
[2019-02-09] MEDS: Multivitamin With Minerals Tab PO SCH (08:44)
[2019-02-09] MEDS: Aspirin 325 mg EC Tablets PO SCH ×2 (08:44→17:21)
[2019-02-09] MEDS: Pantoprazole 40 mg EC Tab PO SCH (08:46)
--- NOTE | 2019-02-09 11:19 | CP.PCM.PN ---
Subjective - Date & Time of Evaluation Date of Evaluation: 02/09/19 Time of Evaluation: 11:17 - Subjective Subjective: Evelio Torres, born 1940 who has been admitted to [facility] acute inpatient rehabilitation following a mechanical fall with left femur fracture and underwent ORIF. Left leg swelling and doppler was negative for DVT Reduced pain and improved ROM Jostin are due out and will be done Objective - Vital Signs/Intake and Output Vital Signs (last 24 hours): Temp Pulse Resp BP Pulse Ox 98.1 F 82 20 129/69 97 02/09/19 07:21 02/09/19 08:45 02/09/19 07:21 02/09/19 08:45 02/09/19 07:21 - Medications Medications: Current Medications Acetaminophen (Tylenol 325mg Tab) 650 mg PO Q4 PRN PRN Reason: Pain, Mild (1-3) Last Admin: 02/08/19 17:25 Dose: 650 mg Acetaminophen/Codeine Phosphate (Tylenol/Codeine 300 Mg/30 Mg) 1 tab PO Q6 PRN PRN Reason: Pain 3-6/10 Aspirin (Ecotrin) 325 mg PO BID [facility] Last Admin: 02/09/19 08:44 Dose: 325 mg Atenolol (Tenormin) 50 mg PO DAILY [facility] Last Admin: 02/09/19 08:45 Dose: 50 mg Atorvastatin Calcium (Lipitor) 10 mg PO DAILY [facility] Last Admin: 02/09/19 08:44 Dose: 10 mg Bacitracin (Bacitracin Oint) 1 applic TOP BID [facility] Last Admin: 02/09/19 08:43 Dose: 1 applic Benzocaine/Menthol (Dermoplast) 1 sprays TOP PRN PRN PRN Reason: Excoriation Calcium Carbonate (Oscal) 500 mg PO DAILY [facility] Last Admin: 02/09/19 08:43 Dose: 500 mg Celecoxib (Celebrex) 200 mg PO BID [facility] Last Admin: 02/09/19 08:43 Dose: 200 mg Clonazepam (Klonopin) 0.5 mg PO HS PRN PRN Reason: Insomnia Last Admin: 02/04/19 21:51 Dose: 0.5 mg Duloxetine HCl (Cymbalta) 30 mg PO Q12 PRN PRN Reason: Anxiety Last Admin: 02/09/19 08:43 Dose: 30 mg Hydrochlorothiazide (Microzide) 12.5 mg PO DAILY [facility] Last Admin: 02/09/19 08:43 Dose: 12.5 mg Multivitamins/Minerals (Therapeutic-M Tab) 1 tab PO DAILY [facility] Last Admin: 02/09/19 08:44 Dose: 1 tab Pantoprazole Sodium (Protonix Ec Tab) 40 mg PO DAILY [facility] Last Admin: 02/09/19 08:46 Dose: 40 mg Silver Sulfadiazine (Silvadene 1% 50 Gm) 1 applic TOP BID [facility] Last Admin: 02/09/19 08:44 Dose: 1 applic Simethicone (Mylicon Chew Tab) 80 mg PO Q8 PRN PRN Reason: Flatulence Tramadol HCl (Ultram) 50 mg PO Q4 PRN PRN Reason: pain -08/16 Last Admin: 02/09/19 10:15 Dose: 50 mg - Labs Labs: 02/05/19 16:07 02/06/19 05:47 - Constitutional Appears: Non-toxic, No Acute Distress - Head Exam Head Exam: ATRAUMATIC, NORMAL INSPECTION, NORMOCEPHALIC - Eye Exam Eye Exam: EOMI - ENT Exam ENT Exam: Mucous Membranes Moist - Respiratory Exam Respiratory Exam: NORMAL BREATHING PATTERN - Cardiovascular Exam Cardiovascular Exam: REGULAR RHYTHM, Murmur - GI/Abdominal Exam GI & Abdominal Exam: absent: Firm, Guarding - Extremities Exam Extremities Exam: absent: Calf Tenderness - Neurological Exam Neurological Exam: Alert, CN II-XII Intact, Oriented x3 - Psychiatric Exam Psychiatric exam: Normal Affect, Normal Mood - Skin Skin Exam: Warm (jostin CDI) Assessment and Plan - Assessment and Plan (Free Text) Assessment: Evelio Torres, born 1940 who has been admitted to [facility] acute inpatient rehabilitation following a mechanical fall with left femur fracture and underwent ORIF. Left leg swelling and doppler was negative for DVT Reduced pain and improved ROM PT/OT to continue to help increase functional independence Team conference for d/c planning Pain: controlled Vascular: no evidence of DVT GI: No evidence of constipation or diarrhea I removed the jostin without incidence. Well tolerated steristrips applied w here necessary Patient continues to be an excellent acute rehabilitation candidate and will have continued PT, OT and recreational therapy to help facilitate a safe and appropriate d/c plan
[2019-02-09] MEDS: Acetaminophen-Codeine 300/30 mg Tab PO PRN (20:46)
[2019-02-10 08:11] LABS: BLOOD UREA NITROGEN 23 mg/dl (7-17); CALCIUM 8.8 mg/dL (8.4-10.2); GFR NON-AFRICAN AMERICAN > 60
[2019-02-10] MEDS: Aspirin 325 mg EC Tablets PO SCH ×2 (08:54→17:35)
[2019-02-10] MEDS: Pantoprazole 40 mg EC Tab PO SCH (08:56)
[2019-02-10] MEDS: Multivitamin With Minerals Tab PO SCH (08:57)
[2019-02-10] MEDS: Silver Sulfadiazine 1% CREAM (50 gm) TOP SCH ×2 (08:57→17:35)
[2019-02-10] MEDS: Bacitracin OINT 15GM TOP SCH ×2 (08:57→17:34)
--- NOTE | 2019-02-10 11:43 | CP.PCM.PN ---
Subjective - Date & Time of Evaluation Date of Evaluation: 02/10/19 Time of Evaluation: 11:30 - Subjective Subjective: NO COMPLAINTS Objective - Vital Signs/Intake and Output Vital Signs (last 24 hours): Temp Pulse Resp BP Pulse Ox 98 F 72 20 130/80 98 02/10/19 09:00 02/10/19 09:00 02/10/19 09:00 02/10/19 09:00 02/10/19 09:00 - Medications Medications: Current Medications Acetaminophen (Tylenol 325mg Tab) 650 mg PO Q4 PRN PRN Reason: Pain, Mild (1-3) Last Admin: 02/08/19 17:25 Dose: 650 mg Acetaminophen/Codeine Phosphate (Tylenol/Codeine 300 Mg/30 Mg) 1 tab PO Q6 PRN PRN Reason: Pain 3-04/16 Last Admin: 02/09/19 20:46 Dose: 1 tab Aspirin (Ecotrin) 325 mg PO BID [facility] Last Admin: 02/10/19 08:54 Dose: 325 mg Atenolol (Tenormin) 50 mg PO DAILY [facility] Last Admin: 02/10/19 08:54 Dose: 50 mg Atorvastatin Calcium (Lipitor) 10 mg PO DAILY [facility] Last Admin: 02/10/19 08:56 Dose: 10 mg Bacitracin (Bacitracin Oint) 1 applic TOP BID [facility] Last Admin: 02/10/19 08:57 Dose: 1 applic Benzocaine/Menthol (Dermoplast) 1 sprays TOP PRN PRN PRN Reason: Excoriation Calcium Carbonate (Oscal) 500 mg PO DAILY [facility] Last Admin: 02/10/19 08:55 Dose: 500 mg Celecoxib (Celebrex) 200 mg PO BID [facility] Last Admin: 02/10/19 08:58 Dose: 200 mg Clonazepam (Klonopin) 0.5 mg PO HS PRN PRN Reason: Insomnia Last Admin: 02/04/19 21:51 Dose: 0.5 mg Duloxetine HCl (Cymbalta) 30 mg PO Q12 PRN PRN Reason: Anxiety Last Admin: 02/10/19 08:55 Dose: 30 mg Hydrochlorothiazide (Microzide) 12.5 mg PO DAILY [facility] Last Admin: 02/10/19 08:56 Dose: Not Given Multivitamins/Minerals (Therapeutic-M Tab) 1 tab PO DAILY [facility] Last Admin: 02/10/19 08:57 Dose: 1 tab Pantoprazole Sodium (Protonix Ec Tab) 40 mg PO DAILY [facility] Last Admin: 02/10/19 08:56 Dose: 40 mg Silver Sulfadiazine (Silvadene 1% 50 Gm) 1 applic TOP BID [facility] Last Admin: 02/10/19 08:57 Dose: 1 applic Simethicone (Mylicon Chew Tab) 80 mg PO Q8 PRN PRN Reason: Flatulence Tramadol HCl (Ultram) 50 mg PO Q4 PRN PRN Reason: pain 7-1010 Last Admin: 02/10/19 08:53 Dose: 50 mg - Labs Labs: 02/05/19 16:07 02/10/19 06:00 - Respiratory Exam Respiratory Exam: Clear to Ausculation Bilateral - Cardiovascular Exam Cardiovascular Exam: REGULAR RHYTHM, +S1, +S2, Murmur - Extremities Exam Additional comments: NO LE EDEMA Assessment and Plan - Assessment and Plan (Free Text) Assessment: SURGICAL REPAIR OF LEFT FEMUR FRACTURE AORTIC STENOSIS HYPERLIPIDEMIA HYPERTENSION Plan: CONTINUE ASPIRIN, ATORVASTATIN AND ATENOLOL CONTINUE PT
[2019-02-10] MEDS ORDERED: Potassium Chloride 20 mEq ER Tab PO ONE ×2 (14:00→14:30)
[2019-02-11] MEDS ORDERED: Lidocaine 5% Patch TD ONE (02:21)
[2019-02-11 06:12] LABS: BLOOD UREA NITROGEN 19 mg/dl (7-17); CALCIUM 8.7 mg/dL (8.4-10.2); GFR NON-AFRICAN AMERICAN > 60
[2019-02-11] MEDS: Acetaminophen-Codeine 300/30 mg Tab PO PRN ×2 (09:09→18:08)
[2019-02-11] MEDS: Bacitracin OINT 15GM TOP SCH ×2 (09:10→16:50)
[2019-02-11] MEDS: Aspirin 325 mg EC Tablets PO SCH ×2 (09:13→16:48)
[2019-02-11] MEDS: Pantoprazole 40 mg EC Tab PO SCH (09:14)
[2019-02-11] MEDS: Silver Sulfadiazine 1% CREAM (50 gm) TOP SCH ×2 (09:15→16:49)
[2019-02-11] MEDS: Multivitamin With Minerals Tab PO SCH (09:15)
[2019-02-11] MEDS: Lidocaine 5% Patch TD SCH (21:24)
[2019-02-12] MEDS: Pantoprazole 40 mg EC Tab PO SCH (08:45)
[2019-02-12] MEDS: Multivitamin With Minerals Tab PO SCH (08:45)
[2019-02-12] MEDS: Silver Sulfadiazine 1% CREAM (50 gm) TOP SCH ×2 (08:47→16:49)
[2019-02-12] MEDS: Bacitracin OINT 15GM TOP SCH ×2 (08:47→16:49)
[2019-02-12] MEDS: Aspirin 325 mg EC Tablets PO SCH ×2 (08:52→16:48)
[2019-02-12] MEDS: Lidocaine 5% Patch TD SCH (09:11)
--- NOTE | 2019-02-12 09:56 | CP.PCM.PN ---
Subjective - Date & Time of Evaluation Date of Evaluation: 02/12/19 Time of Evaluation: 09:30 - Subjective Subjective: NO COMPLAINTS Objective - Vital Signs/Intake and Output Vital Signs (last 24 hours): Temp Pulse Resp BP Pulse Ox 97.7 F 85 20 155/74 H 98 02/12/19 07:55 02/12/19 08:44 02/12/19 07:55 02/12/19 08:44 02/12/19 07:55 - Medications Medications: Current Medications Acetaminophen (Tylenol 325mg Tab) 650 mg PO Q4 PRN PRN Reason: Pain, Mild (1-3) Last Admin: 02/11/19 00:47 Dose: 650 mg Acetaminophen/Codeine Phosphate (Tylenol/Codeine 300 Mg/30 Mg) 1 tab PO Q6 PRN PRN Reason: Pain 3-04/16 Last Admin: 02/11/19 18:08 Dose: 1 tab Aspirin (Ecotrin) 325 mg PO BID [facility] Last Admin: 02/12/19 08:52 Dose: 325 mg Atenolol (Tenormin) 50 mg PO DAILY [facility] Last Admin: 02/12/19 08:44 Dose: 50 mg Atorvastatin Calcium (Lipitor) 10 mg PO DAILY [facility] Last Admin: 02/12/19 08:46 Dose: 10 mg Bacitracin (Bacitracin Oint) 1 applic TOP BID [facility] Last Admin: 02/12/19 08:47 Dose: 1 applic Benzocaine/Menthol (Dermoplast) 1 sprays TOP PRN PRN PRN Reason: Excoriation Calcium Carbonate (Oscal) 500 mg PO DAILY [facility] Last Admin: 02/12/19 08:45 Dose: 500 mg Capsaicin (Trixaicin Cream) 1 applic TOP Q6 [facility] Last Admin: 02/12/19 06:33 Dose: Not Given Celecoxib (Celebrex) 200 mg PO BID [facility] Last Admin: 02/12/19 08:45 Dose: 200 mg Clonazepam (Klonopin) 0.5 mg PO HS PRN PRN Reason: Insomnia Last Admin: 02/04/19 21:51 Dose: 0.5 mg Duloxetine HCl (Cymbalta) 30 mg PO Q12 PRN PRN Reason: Anxiety Last Admin: 02/10/19 08:55 Dose: 30 mg Hydrochlorothiazide (Microzide) 12.5 mg PO DAILY [facility] Last Admin: 02/12/19 08:47 Dose: Not Given Lidocaine (Lidoderm) 1 ea TD DAILY [facility] Last Admin: 02/12/19 09:11 Dose: 1 ea Multivitamins/Minerals (Therapeutic-M Tab) 1 tab PO DAILY [facility] Last Admin: 02/12/19 08:45 Dose: 1 tab Pantoprazole Sodium (Protonix Ec Tab) 40 mg PO DAILY [facility] Last Admin: 02/12/19 08:45 Dose: 40 mg Silver Sulfadiazine (Silvadene 1% 50 Gm) 1 applic TOP BID [facility] Last Admin: 02/12/19 08:47 Dose: 1 applic Simethicone (Mylicon Chew Tab) 80 mg PO Q8 PRN PRN Reason: Flatulence Tramadol HCl (Ultram) 50 mg PO Q4 PRN PRN Reason: pain 7-08/16 Last Admin: 02/12/19 09:09 Dose: 50 mg - Labs Labs: 02/05/19 16:07 02/11/19 05:30 - Respiratory Exam Respiratory Exam: Clear to Ausculation Bilateral - Cardiovascular Exam Cardiovascular Exam: REGULAR RHYTHM, +S1, +S2, Murmur - Extremities Exam Additional comments: NO LE EDEMA Assessment and Plan - Assessment and Plan (Free Text) Assessment: SURGICAL REPAIR OF LEFT FEMUR FRACTURE AORTIC STENOSIS HYPERTENSION HYPERLIPIDEMIA Plan: CONTINUE ASPIRIN, ATORVASTATIN AND ATENOLOL THE PATIENT IS REFUSING HCTZ AT THIS TIME IT MAKES HER HAVE TO GO TO THE BATHROOM TOO OFTEN OBSERVE BP OFF HCTZ
--- NOTE | 2019-02-12 13:40 | RAD ---
Date of service: 02/12/2019 PROCEDURE: Radiographs of the Right Shoulder HISTORY: persistent pain s/p fall COMPARISON: No prior. TECHNIQUE: 3 views obtained. FINDINGS: BONES: There is diffuse bone demineralization. There is no acute fracture or bone destruction. Bone alignment is normal. JOINTS: There is moderate degenerative osteoarthrosis in the acromioclavicular and glenohumeral joints with reduced joint space. SOFT TISSUES: Normal. OTHER FINDINGS: None. IMPRESSION: No acute fracture or dislocation. Moderate degenerative osteoarthrosis in the acromioclavicular and glenohumeral joints.
--- NOTE | 2019-02-12 15:40 | CP.PCM.PN ---
Subjective - Date & Time of Evaluation Date of Evaluation: 02/12/19 Time of Evaluation: 09:45 - Subjective Subjective: Patient was seen and evaluated with attending Dr. Tavarez this morning. Patient feels better this morning, but still complaining of right shoulder pain. Had a right shoulder x ray yesterday. Reported as no acute fracture or dislocation, moderate degenerative OA. Objective - Vital Signs/Intake and Output Vital Signs (last 24 hours): Temp Pulse Resp BP Pulse Ox 97.7 F 96 H 20 155/74 H 99 02/12/19 07:55 02/12/19 08:44 02/12/19 07:55 02/12/19 08:44 02/12/19 08:44 - Medications Medications: Current Medications Acetaminophen (Tylenol 325mg Tab) 650 mg PO Q4 PRN PRN Reason: Pain, Mild (1-3) Last Admin: 02/11/19 00:47 Dose: 650 mg Acetaminophen/Codeine Phosphate (Tylenol/Codeine 300 Mg/30 Mg) 1 tab PO Q6 PRN PRN Reason: Pain 3-6/10 Last Admin: 02/11/19 18:08 Dose: 1 tab Aspirin (Ecotrin) 325 mg PO BID [facility] Last Admin: 02/12/19 08:52 Dose: 325 mg Atenolol (Tenormin) 50 mg PO DAILY [facility] Last Admin: 02/12/19 08:44 Dose: 50 mg Atorvastatin Calcium (Lipitor) 10 mg PO DAILY [facility] Last Admin: 02/12/19 08:46 Dose: 10 mg Bacitracin (Bacitracin Oint) 1 applic TOP BID [facility] Last Admin: 02/12/19 08:47 Dose: 1 applic Benzocaine/Menthol (Dermoplast) 1 sprays TOP PRN PRN PRN Reason: Excoriation Calcium Carbonate (Oscal) 500 mg PO DAILY [facility] Last Admin: 02/12/19 08:45 Dose: 500 mg Capsaicin (Trixaicin Cream) 1 applic TOP Q6 [facility] Last Admin: 02/12/19 06:33 Dose: Not Given Celecoxib (Celebrex) 200 mg PO BID [facility] Last Admin: 02/12/19 08:45 Dose: 200 mg Clonazepam (Klonopin) 0.5 mg PO HS PRN PRN Reason: Insomnia Last Admin: 02/04/19 21:51 Dose: 0.5 mg Duloxetine HCl (Cymbalta) 30 mg PO Q12 PRN PRN Reason: Anxiety Last Admin: 02/10/19 08:55 Dose: 30 mg Hydrochlorothiazide (Microzide) 12.5 mg PO DAILY [facility] Last Admin: 02/12/19 08:47 Dose: Not Given Lidocaine (Lidoderm) 1 ea TD DAILY [facility] Last Admin: 02/12/19 09:11 Dose: 1 ea Multivitamins/Minerals (Therapeutic-M Tab) 1 tab PO DAILY [facility] Last Admin: 02/12/19 08:45 Dose: 1 tab Pantoprazole Sodium (Protonix Ec Tab) 40 mg PO DAILY [facility] Last Admin: 02/12/19 08:45 Dose: 40 mg Silver Sulfadiazine (Silvadene 1% 50 Gm) 1 applic TOP BID [facility] Last Admin: 02/12/19 08:47 Dose: 1 applic Simethicone (Mylicon Chew Tab) 80 mg PO Q8 PRN PRN Reason: Flatulence Tramadol HCl (Ultram) 50 mg PO Q4 PRN PRN Reason: pain -08/16 Last Admin: 02/12/19 09:09 Dose: 50 mg - Labs Labs: 02/05/19 16:07 02/11/19 05:30 - Skin Additional comments: Constitutional Appears: Non-toxic, No Acute Distress - Head Exam Head Exam: NORMAL INSPECTION - Eye Exam Eye Exam: Normal appearance - ENT Exam ENT Exam: Mucous Membranes Dry - Respiratory Exam Respiratory Exam: Clear to Ausculation Bilateral, NORMAL BREATHING PATTERN - Cardiovascular Exam Cardiovascular Exam: REGULAR RHYTHM, +S1, +S2 - GI/Abdominal Exam GI & Abdominal Exam: Soft, Normal Bowel Sounds. absent: Tenderness - Extremities Exam Extremities Exam: Normal Inspection. absent: Calf Tenderness, Pedal Edema - Neurological Exam Neurological Exam: Alert, Awake, CN II-XII Intact, Oriented x3. absent: Altered, Motor Sensory Deficit Neuro motor strength exam: Left Upper Extremity: 5, Right Upper Extremity: 5, Left Lower Extremity: 5, Right Lower Extremity: 5 - Skin Skin Exam: Dry, Intact, Normal Color Musculoskeletal right shoulder tender to palpation, limited ROM due to pain Assessment and Plan - Assessment and Plan (Free Text) Assessment: 78 yo female with PMHx of HTN, HLD, SLE, Seizure, R breast Cancer and osteoporosis s/p left femur displaced fracture and s/p IM nail. Admitted to Acute rehab for PT and OT. Plan: Right shoulder pain right shoulder x ray yesterday. Reported as no acute fracture or dislocation, moderate degenerative OA. lidoderm patch on NSAIDs start bengay topical Displaced Left Femoral shaft Fracture, s/p IM nail - Pain management: toradol for mild and moderate, Morphine for severe. - Orthopedic Surgery consult, Dr Alvarez. - PT/OT Acute blood loss anemia - H/H stable - s/p 2 units PRBC - asymptomatic Constipation possible medicine induced, improving - d/c colace -having normal daily BMs -check for BMs ?SLE/?RA - Chronic - cont Home meds HTN - slightly elevated, asymptomatic -will monitor for now, could be 2/2 pain, pain medication adjusted yesterday by Dr. Matson. - c/ home meds - Cardiology consulted, recs appreciated HLD - Chronic - Home meds resumed h/o Anxiety - clonipin 0.5 mg started Hx of Seizure - Last episode 2 years ago. -Not on chronic medication anymore. DVT Prophylaxis - on ASA 325 BID per Ortho recs. - SCD for R lower leg only GI ppx Protonix daily
--- NOTE | 2019-02-12 16:59 | CP.PCM.PN ---
Subjective - Date & Time of Evaluation Date of Evaluation: 02/12/19 Time of Evaluation: 16:56 - Subjective Subjective: Evelio Torres, born 1940 who has been admitted to [facility] acute inpatient rehabilitation following a mechanical fall with left femur fracture and underwent ORIF. Left leg swelling and doppler was negative for DVT Reduced pain and improved ROM Having right shoulder pain and x-ray was noted for significant DJD. Objective - Vital Signs/Intake and Output Vital Signs (last 24 hours): Temp Pulse Resp BP Pulse Ox 97.7 F 96 H 20 155/74 H 99 02/12/19 07:55 02/12/19 08:44 02/12/19 07:55 02/12/19 08:44 02/12/19 08:44 - Medications Medications: Current Medications Acetaminophen (Tylenol 325mg Tab) 650 mg PO Q4 PRN PRN Reason: Pain, Mild (1-3) Last Admin: 02/11/19 00:47 Dose: 650 mg Acetaminophen/Codeine Phosphate (Tylenol/Codeine 300 Mg/30 Mg) 1 tab PO Q6 PRN PRN Reason: Pain 3-6/10 Last Admin: 02/11/19 18:08 Dose: 1 tab Aspirin (Ecotrin) 325 mg PO BID [facility] Last Admin: 02/12/19 16:48 Dose: 325 mg Atenolol (Tenormin) 50 mg PO DAILY [facility] Last Admin: 02/12/19 08:44 Dose: 50 mg Atorvastatin Calcium (Lipitor) 10 mg PO DAILY [facility] Last Admin: 02/12/19 08:46 Dose: 10 mg Bacitracin (Bacitracin Oint) 1 applic TOP BID [facility] Last Admin: 02/12/19 16:49 Dose: 1 applic Benzocaine/Menthol (Dermoplast) 1 sprays TOP PRN PRN PRN Reason: Excoriation Calcium Carbonate (Oscal) 500 mg PO DAILY [facility] Last Admin: 02/12/19 08:45 Dose: 500 mg Camphor/Menthol (Bengay) 1 applic TOP Q6 [place] Celecoxib (Celebrex) 200 mg PO BID [facility] Last Admin: 02/12/19 16:49 Dose: 200 mg Clonazepam (Klonopin) 0.5 mg PO HS PRN PRN Reason: Insomnia Last Admin: 02/04/19 21:51 Dose: 0.5 mg Duloxetine HCl (Cymbalta) 30 mg PO Q12 PRN PRN Reason: Anxiety Last Admin: 02/10/19 08:55 Dose: 30 mg Hydrochlorothiazide (Microzide) 12.5 mg PO DAILY [facility] Last Admin: 02/12/19 08:47 Dose: Not Given Lidocaine (Lidoderm) 1 ea TD DAILY [facility] Last Admin: 02/12/19 09:11 Dose: 1 ea Multivitamins/Minerals (Therapeutic-M Tab) 1 tab PO DAILY [facility] Last Admin: 02/12/19 08:45 Dose: 1 tab Pantoprazole Sodium (Protonix Ec Tab) 40 mg PO DAILY [facility] Last Admin: 02/12/19 08:45 Dose: 40 mg Silver Sulfadiazine (Silvadene 1% 50 Gm) 1 applic TOP BID [facility] Last Admin: 02/12/19 16:49 Dose: 1 applic Simethicone (Mylicon Chew Tab) 80 mg PO Q8 PRN PRN Reason: Flatulence Tramadol HCl (Ultram) 50 mg PO Q4 PRN PRN Reason: pain 7-08/16 Last Admin: 02/12/19 09:09 Dose: 50 mg - Labs Labs: 02/05/19 16:07 02/11/19 05:30 - Constitutional Appears: Non-toxic, No Acute Distress - Head Exam Head Exam: ATRAUMATIC, NORMAL INSPECTION, NORMOCEPHALIC - Eye Exam Eye Exam: EOMI - ENT Exam ENT Exam: Mucous Membranes Moist - Neck Exam Neck Exam: absent: Meningismus - Respiratory Exam Respiratory Exam: NORMAL BREATHING PATTERN. absent: Chest Wall Tenderness - GI/Abdominal Exam GI & Abdominal Exam: absent: Guarding - Extremities Exam Extremities Exam: absent: Full ROM (decreased right shoulder ROM and positive impingement) - Neurological Exam Neurological Exam: Alert, CN II-XII Intact - Psychiatric Exam Psychiatric exam: Normal Affect, Normal Mood - Skin Skin Exam: Warm Assessment and Plan - Assessment and Plan (Free Text) Assessment: Evelio Torres, born 1940 who has been admitted to [facility] acute inpatient rehabilitation following a mechanical fall with left femur fracture and underwent ORIF. Left leg swelling and doppler was negative for DVT Reduced pain and improved ROM Right shoulder pain and x-ray + DJD examination consistent with impingement as well will proceed with injection if no relief will get MRI PT/OT to continue to help increase functional independence Team conference for d/c planning Pain: will do a right shoulder injection tomorrow Vascular: no evidence of DVT GI: No evidence of constipation or diarrhea Patient continues to be an excellent acute rehabilitation candidate and will h ave continued PT, OT and recreational therapy to help facilitate a safe and appropriate d/c plan
[2019-02-12] MEDS ORDERED: Triamcinolone Acetonide 40 mg/mL Inj IAA ONE (17:00)
[2019-02-12] MEDS ORDERED: Dexamethasone 4 mg/1 ml IAA ONE (17:00)
[2019-02-12] MEDS ORDERED: Lidocaine 1% (10 ml) Inj IAA ONE (17:00)
[2019-02-12] MEDS: Menthol/Methyl Salicylate Oinment TOP SCH ×2 (19:00→23:02)
[2019-02-13] MEDS: Menthol/Methyl Salicylate Oinment TOP SCH ×4 (06:15→23:41)
[2019-02-13] MEDS: Bacitracin OINT 15GM TOP SCH ×2 (08:26→17:18)
[2019-02-13] MEDS: Aspirin 325 mg EC Tablets PO SCH ×2 (08:29→17:18)
[2019-02-13] MEDS: Lidocaine 5% Patch TD SCH (08:30)
[2019-02-13] MEDS: Pantoprazole 40 mg EC Tab PO SCH (08:31)
[2019-02-13] MEDS: Silver Sulfadiazine 1% CREAM (50 gm) TOP SCH ×2 (08:32→17:18)
[2019-02-13] MEDS: Multivitamin With Minerals Tab PO SCH (08:32)
[2019-02-13] MEDS: Acetaminophen-Codeine 300/30 mg Tab PO PRN ×2 (09:06→23:39)
--- NOTE | 2019-02-13 13:14 | PCM.PSYTMC ---
Acute Rehab Team Conference - - Vital Signs: Vital Signs (Last 8 Hours): Vital Signs 02/13/19 02/13/19 02/13/19 08:32 09:00 09:45 Temperature 98.1 F 98.1 F Pulse Rate 84 84 84 Respiratory 18 19 Rate Blood Pressure 140/60 140/60 140/60 O2 Sat by Pulse 99 Oximetry Pain: 2 - Precautions: Precautions: Fall Prevention - Medications/Other Issues: Comment: - Pt refusing HCTZ due to makes her void too much and doesnt want to void during therapy sessions. - Pain management - Consults: Comment: - Dr. Matson (Real Estate Office Manager). - Dr. Dixon ( Cardiology). - Dr. House (Ortho). - Wound RN - Skin: Incision Site: Lateral LLE Dressing Status: Clean, Dry, Intact Incision: Healing Well Incision Line Treatment: bacitracin - Toileting: Toileting: Minimal Assistance - Bladder Management: Bladder Pattern: Normal Voiding Method: Toilet Bladder Management: Contact Guard - Transfers: Transfers: Minimal Assistance - Pain Management: Other Intervention:: - Pt takes PRN Tylenol with Codeine or Ultram depending on pain scale for right shoulder pain - Patient/Family Teaching: Other Intervention:: - incisional care. - medications. - pain management - Goals/Time Frame: Comment: To go home safely - Provider: Registered Nurse:: Antonia Mcdonald Physical Therapy - Bed Mobility Bed Mobility: Contact Guard - Transfers Wheelchair to Mat: Supervision, Verbal Cues Sit to Stand: Supervision, Verbal Cues - Ambulation Level of Assistance: Supervision, Verbal Cues Distance (ft.): 115 Assistive Devices: Rolling Walker Comment: R knee brace - Stair Negotiation Stairs: Level of Assistance: Minimal Assistance Number of Stairs: 3 Handrails: Bilateral Stairs: Assistive Devices: Left Handrail, Right Handrail - Standing Balance Static Stand: Supervision Comment: w/ RW - Pain Pain (assessed during therapy session): 6 Alleviating Techniques: Medication, Ice, Position Change Comment: R shoulder pain and L hip pain - Insight/Carryover Insight/Carryover: Good - Patient/Family Education Comment: safety, POC - Assessment/Plan Assessment: Pt actively participating in PT tx sessions focusing on BLE st rengthening exercises, endurance activities, and functional mobility training. Pt currently requires CGA for bed mobility, close S /occasional CGA for transfers, close S for ambulation with RW. Pt will continue to benefit from skilled PT interventions to address deficits, reduce fall risk, and maximize functional independence. Caregiver training scheduled with pts homemaker 02/13/19. - Goals Timeframe: 10 days Goals: Sit < > supine mod I. All functional transfers mod I with RW. Pt will ambulate 250 ft mod I with RW - Provider Physical Therapist:: Flor Delgado License Number:: [id number] Occupational Therapy - Arousal/Attention/Orientation Level of Consciousness: Awake, Alert Patient Orientation: Person, Place, Time - ADL/IADL Self Feeding: Set-up Help Grooming: Set-up Help Bathing-Upper Ext: Supervision Bathing-Lower Ext: Verbal Cues, Contact Guard, Minimal Assistance Dressing-Upper Ext: Supervision Dressing-Lower Ext: Minimal Assistance Comment: patient performs lb ADLs with cga using LB AE, pt performs LB ADLs without use of LB AE with min A - Sitting Balance Static Sitting: Independent without upper extremity support Dynamic Sitting: Requires supervision - Transfers Wheelchair to Bed Transfers: Supervision, Verbal Cues, Contact Guard Toilet Transfers: Supervision, Contact Guard Tub Transfers: Supervision, Contact Guard - Wheelchair Management Level of Assistance: Supervision Distance (ft.): 100 - Upper Extremity Status Right Upper Extremity Comment: AROM approx shoulder flexion 70 degrees. strength AROM WFLs 4-/5. patient with intermittent shoulder/tricep pain 2' arthritis Left Upper Extremity Comment: WFLs - Pain Pain (assessed during therapy session): 7 Alleviating Techniques: Medication, Ice, Position Change Comment: patient with c/o pain L hip 05/16 , pt dissipates with meds and position change - Insight/Carryover Insight/Carryover: Good - Patient/Family Education Comment: AE/DME education - Assessment/Plan Assessment: Patient is a 78 yo f presents to [facility] s/p L ORIF. pt presents with high pain level in LLE, increased anxiety/fear of falling , intermittent s houlder pain , impaired dynamic standing balance/unsteadiness on feet and impaired knowledge of adaptive/compensatory techs . patient doing well and is able to perform ub adls with S, lb ADLs with overall min A w/o use of LB AE and with cga with use of lb ae. pt completes toileting routine with overall cs/cga. patient status varies. patient's pain and fear levels are greatly improving thus far. recommend caregiver training prior to d/c. recommended dme: 3 in 1 commode, tub transfer bench and hip kit, all equipment ordered. hip kit recieved. recommend supervision/assist with adls and iadls - Goals Timeframe: 1 week - Provider Occupational Therapist:: Emma Whitaker License Number: [id number] Recreational Therapy - Participation Participation: Monitors His/Her Own Leisure Time - Attendance Attendance: 3-5 times per week - Activities Leisure Activities: Socializing - Socialization Level of Socialization: Initiates/interacts freely with care givers and peer - Assessment Assessment/Plan: Pt is agreeable to participate in recreation therapy sessions following verbal cues for encouragement. Pt's barriers to participation are fatigue or decrease arousal level to participate in session. Pt has participated in [employer] task and enjoys being active with her leisure tasks independently. Pt receives daily room visits for social support and encouragement to participate in sessions. Will continue to encourage throughout stay on unit for diversion. Problems Currently Limiting Participation: pain, decrease activity tolerance level, decrease activity leisure awareness level, anxiety Goals and Time Frame: Pt will tolerate participating in leisure task for more than 30 minutes to improve activity tolerance level by date of discharge. - Provider Therapist: Tessie Acuna Nutrition - Current Diet Current Diet/Supplement/Feedings: Regular diet - Appetite Percent Meal Consumed: 75-100% - Assessment/Goals/Time Frame Assessments/Goals/Time Frame: Low Risk (Level 1). No Goals. Follow-up due on 02/14/2019 - Provider Provider: Marlin Braun Case Management - Psychosocial Assessment Support Systems: Ish Torres (son) - [phone]. Zach Khan (sister) - [phone] Psychological Interventions/Needs: Patient is AAO and able to verbalize needs. Discharge Concerns: Patient still requiring supervision, notably with safe ambulation and stair negotiation. Patient/Family Meeting: CM met with patient and rehab team. Intervention/Goal/Outcome: 1. Goal: Supervision 2. Plan: home with VNS and resuming homemaker services 3. RW, commode, and shower chair to be ordered- pt. requesting commode and shower chair to be delivered to her home once she is d/c 4. schedule f/u appts 5. caregiver training to be completed by homemaker 02/13/19 6. continued emotional support - Discharge Plan Discharge Plan: Home with services Home Services: [facility] - Provider Provider: Shannan Tatum License Number: [id number] Rehabilitation Plan - Treatment Plan Treatment Plan: Physical Therapy, Occupational Therapy, Dietary, Patient/Family Education - Discharge Plan Estimated Date of Discharge: 02/15/19 Discharge to: Home
--- NOTE | 2019-02-13 13:49 | PCM.PROC ---
Procedures Attestation:: I certify that I have explained the specified Operation(s) or Procedure(s), risks, benefits and reasonable alternatives to the Patient and/or other person responsible. The opportunity was given to ask questions and all questions answered - Joint Aspiration/Injection Joint #1 Consent Obtained: Verbal Consent Time Out Performed: Yes Side of Body: Right Joint Aspirated: Shoulder Ultrasound Guidance Used: No Skin Prep: Chlorprep Needle Size Used: 22 G Medication Injected: Triamcinolone Acetate, Methylprednisolone, Lidocaine Patient Tolorated Procedure: Well Complications: None
--- NOTE | 2019-02-13 13:50 | CP.PCM.PN ---
Subjective - Date & Time of Evaluation Date of Evaluation: 02/13/19 Time of Evaluation: 13:49 - Subjective Subjective: Patient seen in the room doing well denies sob/cp discussed discharge with her in 2 days 02/15/19 to have shoulder injection see procedure note Objective - Vital Signs/Intake and Output Vital Signs (last 24 hours): Temp Pulse Resp BP Pulse Ox 98.1 F 84 19 140/60 99 02/13/19 09:45 02/13/19 09:45 02/13/19 09:45 02/13/19 09:45 02/13/19 09:45 - Medications Medications: Current Medications Acetaminophen (Tylenol 325mg Tab) 650 mg PO Q4 PRN PRN Reason: Pain, Mild (1-3) Last Admin: 02/13/19 13:13 Dose: 650 mg Acetaminophen/Codeine Phosphate (Tylenol/Codeine 300 Mg/30 Mg) 1 tab PO Q6 PRN PRN Reason: Pain 3-6/10 Last Admin: 02/13/19 09:06 Dose: 1 tab Aspirin (Ecotrin) 325 mg PO BID [facility] Last Admin: 02/13/19 08:29 Dose: 325 mg Atenolol (Tenormin) 50 mg PO DAILY [facility] Last Admin: 02/13/19 08:32 Dose: 50 mg Atorvastatin Calcium (Lipitor) 10 mg PO DAILY [facility] Last Admin: 02/13/19 08:30 Dose: 10 mg Bacitracin (Bacitracin Oint) 1 applic TOP BID [facility] Last Admin: 02/13/19 08:26 Dose: 1 applic Benzocaine/Menthol (Dermoplast) 1 sprays TOP PRN PRN PRN Reason: Excoriation Calcium Carbonate (Oscal) 500 mg PO DAILY [facility] Last Admin: 02/13/19 08:31 Dose: 500 mg Camphor/Menthol (Bengay) 1 applic TOP Q6 [facility] Last Admin: 02/13/19 13:11 Dose: 1 applic Celecoxib (Celebrex) 200 mg PO BID [facility] Last Admin: 02/13/19 08:29 Dose: 200 mg Clonazepam (Klonopin) 0.5 mg PO HS PRN PRN Reason: Insomnia Last Admin: 02/04/19 21:51 Dose: 0.5 mg Duloxetine HCl (Cymbalta) 30 mg PO Q12 PRN PRN Reason: Anxiety Last Admin: 02/10/19 08:55 Dose: 30 mg Hydrochlorothiazide (Microzide) 12.5 mg PO DAILY [facility] Last Admin: 02/13/19 08:31 Dose: Not Given Lidocaine (Lidoderm) 1 ea TD DAILY [facility] Last Admin: 02/13/19 08:30 Dose: 1 ea Multivitamins/Minerals (Therapeutic-M Tab) 1 tab PO DAILY [facility] Last Admin: 02/13/19 08:32 Dose: 1 tab Pantoprazole Sodium (Protonix Ec Tab) 40 mg PO DAILY [facility] Last Admin: 02/13/19 08:31 Dose: 40 mg Silver Sulfadiazine (Silvadene 1% 50 Gm) 1 applic TOP BID [facility] Last Admin: 02/13/19 08:32 Dose: 1 applic Simethicone (Mylicon Chew Tab) 80 mg PO Q8 PRN PRN Reason: Flatulence Tramadol HCl (Ultram) 50 mg PO Q4 PRN PRN Reason: pain 7-10 Last Admin: 02/12/19 22:59 Dose: 50 mg - Labs Labs: 02/05/19 16:07 02/11/19 05:30
[2019-02-14] MEDS: Menthol/Methyl Salicylate Oinment TOP SCH ×4 (06:14→23:32)
[2019-02-14] MEDS: Acetaminophen-Codeine 300/30 mg Tab PO PRN (08:49)
[2019-02-14] MEDS: Bacitracin OINT 15GM TOP SCH ×2 (08:51→17:04)
[2019-02-14] MEDS: Lidocaine 5% Patch TD SCH (08:52)
[2019-02-14] MEDS: Aspirin 325 mg EC Tablets PO SCH ×2 (08:52→17:04)
[2019-02-14] MEDS: Multivitamin With Minerals Tab PO SCH (08:54)
[2019-02-14] MEDS: Pantoprazole 40 mg EC Tab PO SCH (08:54)
[2019-02-14] MEDS: Silver Sulfadiazine 1% CREAM (50 gm) TOP SCH ×2 (08:54→17:04)
--- NOTE | 2019-02-14 10:51 | CP.PCM.PN ---
Subjective - Date & Time of Evaluation Date of Evaluation: 02/14/19 Time of Evaluation: 10:00 - Subjective Subjective: NO CHEST PAIN OR SOB DOING WELL AT REHAB Objective - Vital Signs/Intake and Output Vital Signs (last 24 hours): Temp Pulse Resp BP Pulse Ox 98.2 F 81 18 147/63 96 02/14/19 09:25 02/14/19 09:25 02/14/19 09:25 02/14/19 09:25 02/14/19 09:25 - Medications Medications: Current Medications Acetaminophen/Codeine Phosphate (Tylenol/Codeine 300 Mg/30 Mg) 1 tab PO Q6 PRN PRN Reason: Pain 3-04/16 Last Admin: 02/14/19 08:49 Dose: 1 tab Aspirin (Ecotrin) 325 mg PO BID [facility] Last Admin: 02/14/19 08:52 Dose: 325 mg Atenolol (Tenormin) 50 mg PO DAILY [facility] Last Admin: 02/14/19 08:54 Dose: 50 mg Atorvastatin Calcium (Lipitor) 10 mg PO DAILY [facility] Last Admin: 02/14/19 08:53 Dose: 10 mg Bacitracin (Bacitracin Oint) 1 applic TOP BID [facility] Last Admin: 02/14/19 08:51 Dose: 1 applic Benzocaine/Menthol (Dermoplast) 1 sprays TOP PRN PRN PRN Reason: Excoriation Calcium Carbonate (Oscal) 500 mg PO DAILY [facility] Last Admin: 02/14/19 08:53 Dose: 500 mg Camphor/Menthol (Bengay) 1 applic TOP Q6 [facility] Last Admin: 02/14/19 06:14 Dose: 1 applic Celecoxib (Celebrex) 200 mg PO BID [facility] Last Admin: 02/14/19 08:51 Dose: 200 mg Clonazepam (Klonopin) 0.5 mg PO HS PRN PRN Reason: Insomnia Last Admin: 02/04/19 21:51 Dose: 0.5 mg Duloxetine HCl (Cymbalta) 30 mg PO Q12 PRN PRN Reason: Anxiety Last Admin: 02/10/19 08:55 Dose: 30 mg Hydrochlorothiazide (Microzide) 12.5 mg PO DAILY [facility] Last Admin: 02/14/19 08:53 Dose: Not Given Lidocaine (Lidoderm) 1 ea TD DAILY [facility] Last Admin: 02/14/19 08:52 Dose: 1 ea Multivitamins/Minerals (Therapeutic-M Tab) 1 tab PO DAILY [facility] Last Admin: 02/14/19 08:54 Dose: 1 tab Pantoprazole Sodium (Protonix Ec Tab) 40 mg PO DAILY [facility] Last Admin: 02/14/19 08:54 Dose: 40 mg Silver Sulfadiazine (Silvadene 1% 50 Gm) 1 applic TOP BID [facility] Last Admin: 02/14/19 08:54 Dose: 1 applic Simethicone (Mylicon Chew Tab) 80 mg PO Q8 PRN PRN Reason: Flatulence Tramadol HCl (Ultram) 50 mg PO Q4 PRN PRN Reason: pain -08/16 Last Admin: 02/12/19 22:59 Dose: 50 mg - Labs Labs: 02/05/19 16:07 02/11/19 05:30 - Respiratory Exam Respiratory Exam: Clear to Ausculation Bilateral - Cardiovascular Exam Cardiovascular Exam: REGULAR RHYTHM, +S1, +S2, Murmur - Extremities Exam Additional comments: NO LE EDEMA Assessment and Plan - Assessment and Plan (Free Text) Assessment: LEFT FEMUR FRACTURE WITH SURGICAL REPAIR AORTIC STENOSIS HYPERTENSION HYPERLIPIDEMIA Plan: CONTINUE ASPIRIN, ATORVASTATIN AND ATENOLOL FOR DISCHARGE IN AM THE PATIENT WILL DECIDE IN THE NEAR FUTURE IF SHE WANTS TO PROCEED WITH A CARDIAC CATH FOR HER AORTIC STENOSIS
[2019-02-14 22:09] VITALS: TEMP 97.7; O2SAT 97
[2019-02-15] MEDS: Menthol/Methyl Salicylate Oinment TOP SCH ×2 (06:07→12:31)
[2019-02-15 08:20] VITALS: BP 149/75; RESP 17
[2019-02-15] MEDS: Multivitamin With Minerals Tab PO SCH (09:03)
[2019-02-15] MEDS: Pantoprazole 40 mg EC Tab PO SCH (09:04)
[2019-02-15] MEDS: Aspirin 325 mg EC Tablets PO SCH ×2 (09:05→16:41)
[2019-02-15] MEDS: Bacitracin OINT 15GM TOP SCH ×2 (09:05→16:41)
[2019-02-15 09:06] VITALS: PULSE 117
[2019-02-15] MEDS: Silver Sulfadiazine 1% CREAM (50 gm) TOP SCH ×2 (09:06→16:41)
[2019-02-15] MEDS: Lidocaine 5% Patch TD SCH (09:07)
--- NOTE | 2019-02-15 09:14 | CP.PCM.PN ---
Subjective - Date & Time of Evaluation Date of Evaluation: 02/15/19 Time of Evaluation: 09:12 - Subjective Subjective: Patient seen and examined at bedside comfortable. No c/o of pain at this time. Tolerating PT well, ambulating with RW. Scheduled for d/c to home today. No other complaints. Objective - Vital Signs/Intake and Output Vital Signs (last 24 hours): Temp Pulse Resp BP Pulse Ox 97.7 F 117 H 17 149/75 97 02/15/19 08:19 02/15/19 09:04 02/15/19 08:19 02/15/19 09:04 02/14/19 20:00 - Medications Medications: Current Medications Acetaminophen (Tylenol 325mg Tab) 650 mg PO Q4 PRN PRN Reason: Pain scale 1-2. Acetaminophen/Codeine Phosphate (Tylenol/Codeine 300 Mg/30 Mg) 1 tab PO Q6 PRN PRN Reason: Pain 3-04/16 Last Admin: 02/14/19 08:49 Dose: 1 tab Aspirin (Ecotrin) 325 mg PO BID [facility] Last Admin: 02/15/19 09:05 Dose: 325 mg Atenolol (Tenormin) 50 mg PO DAILY [facility] Last Admin: 02/15/19 09:04 Dose: 50 mg Atorvastatin Calcium (Lipitor) 10 mg PO DAILY [facility] Last Admin: 02/15/19 09:05 Dose: 10 mg Bacitracin (Bacitracin Oint) 1 applic TOP BID [facility] Last Admin: 02/15/19 09:05 Dose: 1 applic Benzocaine/Menthol (Dermoplast) 1 sprays TOP PRN PRN PRN Reason: Excoriation Calcium Carbonate (Oscal) 500 mg PO DAILY [facility] Last Admin: 02/15/19 09:04 Dose: 500 mg Camphor/Menthol (Bengay) 1 applic TOP Q6 [facility] Last Admin: 02/15/19 06:07 Dose: 1 applic Celecoxib (Celebrex) 200 mg PO BID [facility] Last Admin: 02/15/19 09:04 Dose: 200 mg Clonazepam (Klonopin) 0.5 mg PO HS PRN PRN Reason: Insomnia Last Admin: 02/04/19 21:51 Dose: 0.5 mg Duloxetine HCl (Cymbalta) 30 mg PO Q12 PRN PRN Reason: Anxiety Last Admin: 02/10/19 08:55 Dose: 30 mg Hydrochlorothiazide (Microzide) 12.5 mg PO DAILY [facility] Last Admin: 02/15/19 09:04 Dose: 12.5 mg Lidocaine (Lidoderm) 1 ea TD DAILY [place] Last Admin: 02/15/19 09:07 Dose: 1 ea Multivitamins/Minerals (Therapeutic-M Tab) 1 tab PO DAILY [facility] Last Admin: 02/15/19 09:03 Dose: 1 tab Pantoprazole Sodium (Protonix Ec Tab) 40 mg PO DAILY [place] Last Admin: 02/15/19 09:04 Dose: 40 mg Silver Sulfadiazine (Silvadene 1% 50 Gm) 1 applic TOP BID [facility] Last Admin: 02/15/19 09:06 Dose: 1 applic Simethicone (Mylicon Chew Tab) 80 mg PO Q8 PRN PRN Reason: Flatulence Tramadol HCl (Ultram) 50 mg PO Q4 PRN PRN Reason: pain 7-08/16 Last Admin: 02/14/19 21:36 Dose: 50 mg - Labs Labs: 02/05/19 16:07 02/11/19 05:30 - Extremities Exam Additional comments: LLE: Incision well healed no swelling to thigh sensation intact SP/DP/TN motor intact EHl/FHL/TA/G pedal pulse intact calves soft N Assessment and Plan (1) Femur fracture Assessment & Plan: POD# 21 s/p L femur fx ORIF with IM [place] -WBAT w/ RW -orthopedically stable for d/c to home -f/u in office within 7-10 days -above d/w Dr. Alvarez in agreement Status: Acute
[2019-02-15] MEDS: Acetaminophen-Codeine 300/30 mg Tab PO PRN (09:16)
== END 2019-02-15 16:50 | disposition home health service (06) | DRG 560 ==
PROVIDERS: ADMIT Family Medicine; ATTEND Family Medicine
PROC: F07Z9FZ Gait Training/Functional Ambulation Treatment using Assistive, Adaptive, Supportive or Protective Equipment (ICD-10-PCS; 2019-01-30)
PROC: F08Z4FZ Home Management Treatment using Assistive, Adaptive, Supportive or Protective Equipment (ICD-10-PCS; 2019-01-30)
PROC: F07L6FZ Therapeutic Exercise Treatment of Musculoskeletal System - Lower Back / Lower Extremity using Assistive, Adaptive, Supportive or Protective Equipment (ICD-10-PCS; 2019-01-30)
PROC: F07K6FZ Therapeutic Exercise Treatment of Musculoskeletal System - Upper Back / Upper Extremity using Assistive, Adaptive, Supportive or Protective Equipment (ICD-10-PCS; 2019-01-31)
PROC: 3E0U33Z Introduction of Anti-inflammatory into Joints, Percutaneous Approach (ICD-10-PCS; principal; 2019-02-13)
PROC: 3E0U3BZ Introduction of Anesthetic Agent into Joints, Percutaneous Approach (ICD-10-PCS; 2019-02-13)
DX: S72.392D Other fracture of shaft of left femur, subsequent encounter for closed fracture with routine healing (principal); D62 Acute posthemorrhagic anemia; M06.811 Other specified rheumatoid arthritis, right shoulder; M81.0 Age-related osteoporosis without current pathological fracture; E87.6 Hypokalemia; I35.0 Nonrheumatic aortic (valve) stenosis; E83.42 Hypomagnesemia; K59.03 Drug induced constipation; M32.9 Systemic lupus erythematosus, unspecified; I10 Essential (primary) hypertension; F41.9 Anxiety disorder, unspecified; E78.5 Hyperlipidemia, unspecified; W18.39XD Other fall on same level, subsequent encounter; Z85.3 Personal history of malignant neoplasm of breast; Z92.3 Personal history of irradiation

== ENCOUNTER 2019-02-17 04:10 | Inpatient (IN) | payer MEDICARE, MEDICAID ==
[2019-02-17 04:10] VITALS: BMI 33.3
[2019-02-17 04:44] LABS: BASO # 0.1 K/uL (0.0-0.2); BASO % 0.7 % (0.0-2.0); EOS # 0.1 K/uL (0.0-0.7); EOS % 1.2 % (0.0-4.0); HEMOGLOBIN 11.6 g/dL (12.0-16.0); LYMPH # 1.8 K/uL (1.0-4.3); LYMPH % 18.2 % (20.0-40.0); MEAN CELL VOLUME 96.8 fl (81.0-99.0); MEAN PLATELET VOLUME 9.4 fl (7.2-11.7); MONO # 1.4 K/uL (0.0-0.8); MONO % 13.6 % (0.0-10.0); NEUT # 6.6 K/uL (1.8-7.0); NEUT % 66.3 % (50.0-75.0); RBC 3.76 Mil/uL (3.80-5.20); RED CELL DISTRIBUTION WIDTH 17.6 % (11.5-14.5)
[2019-02-17 04:50] LABS: PROTHROMBIN TIME 11.8 Seconds (9.8-13.1)
[2019-02-17 04:53] LABS: PARTIAL THROMBOPLASTIN TIME 28.6 Seconds (25.6-37.1)
[2019-02-17 05:03] LABS: B-TYPE NATRIURETIC PEPTIDE 3960 pg/ml (0-900)
[2019-02-17 05:04] LABS: BLOOD UREA NITROGEN 23 mg/dl (7-17); CALCIUM 9.2 mg/dL (8.4-10.2); GFR NON-AFRICAN AMERICAN > 60
--- NOTE | 2019-02-17 05:17 | ED PDOC ---
HPI: Chest Pain Time Seen by Provider: 02/17/19 04:21 Chief Complaint (Nursing): Chest Pain Chief Complaint (Provider): Chest Pain History Per: Patient History/Exam Limitations: no limitations Onset/Duration Of Symptoms: Other (the middle of the night) Additional Complaint(s): 78 years old female with history of hypertension, high cholesterol and recent leg surgery for broken femur presents to ER for evaluation after she woke up with chest pain and shortness of breath in the middle of the night. Patient reports her blood pressure became elevated and called EMS. EMS reports she was in rapid atrial fibrillation with heart rate 150-160 and received Cardizem in the field. In the ED, patient has no longer any symptoms and denies chest pain and shortness of breath currently. PMD: George Tavarez Past Medical History Reviewed: Historical Data, Nursing Documentation, Vital Signs Vital Signs: Last Vital Signs Temp 98.3 F 02/17/19 04:20 Pulse 103 H 02/17/19 04:20 Resp 19 02/17/19 04:20 BP 119/83 02/17/19 04:20 Pulse Ox 99 02/17/19 04:20 - Medical History PMH: Arthritis (rheumatoid), HTN, Osteoporosis, Rheumatoid Arthritis (right shoulder), Sleep Apnea Denies: HIV, Chronic Kidney Disease - Surgical History Surgical History: Appendectomy - Family History Family History: States: Unknown Family Hx - Home Medications Home Medications: Ambulatory Orders Medication Instructions Recorded Turmeric Root Extract [Turmeric] 500 mg PO DAILY 01/24/19 Aspirin 325 mg PO BID #20 tab 02/15/19 Atenolol [Tenormin] 50 mg PO DAILY #30 tab 02/15/19 Atorvastatin [Lipitor] 10 mg PO DAILY #30 tab 02/15/19 Calcium Carbonate 600 mg PO DAILY #30 tablet 02/15/19 DULoxetine [Cymbalta] 30 mg PO Q12 PRN #30 ecc 02/15/19 Lidocaine 5% [Lidoderm] 1 ea TD DAILY #20 patch 02/15/19 Menthol/Methyl Salicylate [BenGay] 1 applic TOP Q6 #1 tube 02/15/19 Multimineral/Multivitamin 1 tab PO DAILY #30 tab 02/15/19 [Therapeutic-M Tab] Simethicone [Mylicon Chew Tab] 80 mg PO Q8 PRN #30 chew 02/15/19 hydroCHLOROthiazide [Microzide] 12.5 mg PO DAILY #30 cap 02/15/19 Clonazepam [Klonopin] 1 mg PO PRN PRN 02/17/19 - Allergies Allergies/Adverse Reactions: Allergies Allergy/AdvReac Type Severity Reaction Status Date / Time milk AdvReac DIARRHEA Verified 02/17/19 05:31 Review of Systems ROS Statement: Except As Marked, All Systems Reviewed And Found Negative Constitutional: Positive for: Other (Elevated blood pressure) Cardiovascular: Positive for: Chest Pain Respiratory: Positive for: Shortness of Breath Physical Exam - Reviewed Nursing Documentation Reviewed: Yes Vital Signs Reviewed: Yes - Physical Exam Appears: Positive for: Well, No Acute Distress Head Exam: Positive for: ATRAUMATIC, NORMOCEPHALIC Skin: Positive for: Normal Color, Warm, Dry Eye Exam: Positive for: Normal appearance, EOMI, PERRL ENT: Positive for: Normal ENT Inspection Neck: Positive for: Normal, Painless ROM, Supple Cardiovascular/Chest: Positive for: Murmur (Holosystolic), Irregularly Irregular Respiratory: Positive for: Normal Breath Sounds. Negative for: Respiratory Distress Gastrointestinal/Abdominal: Positive for: Normal Exam, Soft. Negative for: Tenderness Back: Positive for: Normal Inspection. Negative for: L CVA Tenderness, R CVA Tenderness Extremity: Positive for: Normal ROM, Other (Surgical scar well healing). Negative for: Swelling Neurological/Psych: Positive for: Awake, Alert, Oriented (x3) - Laboratory Results Result Diagrams: 02/17/19 04:41 02/17/19 04:41 Lab Results: PT 11.8 Seconds (9.8-13.1) 02/17/19 04:41 INR 1.0 02/17/19 04:41 APTT 28.6 Seconds (25.6-37.1) 02/17/19 04:41 Troponin I < 0.0120 ng/mL (0.00-0.120) 02/17/19 04:41 NT-Pro-B Natriuret Pep 3960 pg/ml (0-900) H 02/17/19 04:41 - ECG O2 Sat by Pulse Oximetry: 99 (RA) Pulse Ox Interpretation: Normal Medical Decision Making Medical Decision Making: Time: 0424 A/P: New onset A-Fib --Patient status post recent surgery concern for possible pulmonary embolism --Will check blood work including D-Dimer --EKG --BTN --BMP --CBC --PTT --PT --Chest x-ray 0700 Patient has no PE on CTA Discused with patient findings and need for admission for workup of new onset afib Case discussed with FP resident Dr. Paola Weeks for Dr. Valladares Condition: fair Scribe Attestation: Documented by Bri Humphreys, acting as a scribe for Kali Harvey MD. Provider Scribe Attestation: All medical record entries made by the Scribe were at my direction and personally dictated by me. I have reviewed the chart and agree that the record accurately reflects my personal performance of the history, physical exam, medical decision making, and the department course for this patient. I have also personally directed, reviewed, and agree with the discharge instructions and disposition. Disposition - Clinical Impression Clinical Impression: Atrial fibrillation - Patient ED Disposition Is Patient to be Admitted: Transfer of Care - Disposition Disposition Time: 07:00 Condition: FAIR
[2019-02-17] MEDS ORDERED: Sodium Chloride 0.9% 50 ML IV ONE (06:19)
[2019-02-17] MEDS ORDERED: Iodixanol 320 MG/ML 100 ML BOTTLE IV ONE (06:19)
--- NOTE | 2019-02-17 07:11 | ED PDOC ---
- Laboratory Results Result Diagrams: 02/17/19 04:41 02/17/19 04:41 Lab Results: PT 11.8 Seconds (9.8-13.1) 02/17/19 04:41 INR 1.0 02/17/19 04:41 APTT 28.6 Seconds (25.6-37.1) 02/17/19 04:41 D-Dimer, Quantitative 2541 ng/mlDDU (0-230) H 02/17/19 04:41 Troponin I < 0.0120 ng/mL (0.00-0.120) 02/17/19 04:41 NT-Pro-B Natriuret Pep 3960 pg/ml (0-900) H 02/17/19 04:41 - ECG O2 Sat by Pulse Oximetry: 99 (RA) Medical Decision Making Medical Decision Making: Time: 0700 --Patient is endorsed to provider by Dr. Harvey, pending CTA results and re- evaluation. -- Scribe Attestation: Documented by Emily Cole, acting as a scribe for Fady Townsend MD. Provider Scribe Attestation: All medical record entries made by the Scribe were at my direction and person ally dictated by me. I have reviewed the chart and agree that the record accurately reflects my personal performance of the history, physical exam, medical decision making, and the department course for this patient. I have also personally directed, reviewed, and agree with the discharge instructions and disposition. Disposition - Disposition Forms: [employer] (Tai[place]ese)
[2019-02-17] MEDS ORDERED: Simethicone 80 mg Chewtab PO PRN (09:22)
--- NOTE | 2019-02-17 11:33 | CP.PCM.HP ---
<Erendira Cortes - Last Filed: 02/17/19 12:57> History of Present Illness - History of Present Illness History of Present Illness: 78-year-old female with PMH of HTN, HLD, SLE, Seizure, R breast Cancer and osteoporosis, presents to ED with new-onset Afib. She was experiencing CP and SOB at home, paramedics found her to be in rapid afib and administered cardizem 20 mg. When she arrived to ED she was asymptomatic but continued to be in Afib with tachycardia in low 100's, otherwise vitally stable. Recently was d/c from [facility] s/p reduction of femur fracture. Denies headache, dizziness, palpitations, chest pain, SOB, vomiting, nausea, abdominal pain, diarrhea and constipation. PMD: Dr Tavarez, [facility] PMH: HTN, HLD, SLE, Seizure, R breast Cancer and osteoporosis Meds: ASA 325mg BID, Lipitor 10mg PO HS, Klonopin 1mg PO PRN, Cymbalta 30 mg PO Q12, Mylicon 80mg Q8, Calcium carbonate 500 daily Allergy: milk Social: denies Family Hx: denies ROS: all other systems reviewed and negative unless otherwise noted in HPI. Present on Admission - Present on Admission Any Indicators Present on Admission: No Past Patient History - Past Medical History & Family History Past Medical History?: Yes - Past Social History Smoking Status: Never Smoked - CARDIAC Hx Cardiac Disorders: Yes - PULMONARY Hx Sleep Apnea: Yes - NEUROLOGICAL Hx Neurological Disorder: Yes HX Cerebrovascular Accident: Yes - HEENT Hx HEENT Problems: Yes Hx Cataracts: Yes - RENAL Hx Chronic Kidney Disease: No - ENDOCRINE/METABOLIC Hx Endocrine Disorders: Yes Hx Systemic Lupus Erythematosus: Yes - HEMATOLOGICAL/ONCOLOGICAL Hx Human Immunodeficiency Virus (HIV): No - INTEGUMENTARY Hx Dermatological Problems: No - MUSCULOSKELETAL/RHEUMATOLOGICAL Hx Arthritis: Yes (rheumatoid) Hx Osteoporosis: Yes Hx Rheumatoid Arthritis: Yes (right shoulder) - GASTROINTESTINAL Hx Gastrointestinal Disorders: No - GENITOURINARY/GYNECOLOGICAL Hx Genitourinary Disorders: Yes Other/Comment: bladder surgery, breast ca w/ radiation therapy - PSYCHIATRIC Hx Psychophysiologic Disorder: No Hx Substance Use: No - SURGICAL HISTORY Hx Appendectomy: Yes - ANESTHESIA Hx Anesthesia: Yes Hx Anesthesia Reactions: No Hx Malignant Hyperthermia: No Meds Allergies/Adverse Reactions: Allergies Allergy/AdvReac Type Severity Reaction Status Date / Time milk AdvReac DIARRHEA Verified 02/17/19 05:31 Physical Exam - Constitutional Appears: Non-toxic, No Acute Distress - ENT Exam ENT Exam: Mucous Membranes Moist - Respiratory Exam Respiratory Exam: NORMAL BREATHING PATTERN. absent: Respiratory Distress - Cardiovascular Exam Cardiovascular Exam: Tachycardia (low 100's) - Extremities Exam Additional comments: s/p L femur surgery - Neurological Exam Neurological exam: Alert, Oriented x3 - Psychiatric Exam Psychiatric exam: Normal Affect, Normal Mood - Skin Skin Exam: Normal Color, Warm Results - Vital Signs Recent Vital Signs: Last Vital Signs Temp 97.7 F 02/17/19 10:01 Pulse 105 H 02/17/19 10:01 Resp 20 02/17/19 10:01 BP 140/78 02/17/19 10:01 Pulse Ox 98 02/17/19 10:01 - Labs Result Diagrams: 02/17/19 04:41 02/17/19 04:41 Labs: Laboratory Results - last 24 hr 02/17/19 02/17/19 02/17/19 04:41 04:41 04:41 WBC 10.0 RBC 3.76 L Hgb 11.6 L Hct 36.4 MCV 96.8 MCH 31.0 MCHC 32.0 L RDW 17.6 H Plt Count 189 MPV 9.4 Neut % (Auto) 66.3 Lymph % (Auto) 18.2 L [place] % (Auto) 13.6 H Eos % (Auto) 1.2 Baso % (Auto) 0.7 Neut # (Auto) 6.6 Lymph # (Auto) 1.8 [place] # (Auto) 1.4 H Eos # (Auto) 0.1 Baso # (Auto) 0.1 PT 11.8 INR 1.0 APTT 28.6 D-Dimer, Quantitative 2541 H Sodium 139 Potassium 4.1 Chloride 108 H Carbon Dioxide 25 Anion Gap 10 BUN 23 H Creatinine 0.6 L Est GFR ( Amer) > 60 Est GFR (Non-Af Amer) > 60 Random Glucose 94 Calcium 9.2 Troponin I < 0.0120 NT-Pro-B Natriuret Pep 3960 H Assessment & Plan - Assessment and Plan (Free Text) Assessment: 78-year-old female with PMH of HTN, HLD, SLE, Seizure, R breast Cancer and osteoporosis, presents to ED with new-onset Afib. Plan: New Onset Afib -Tachycardic - HR low 100's -Admit to tele -f/u TSH, T4 -CTA negative for PE -f/u troponin x2 Q6 (neg x1) -s/p Cardizem 20mg in field -Begin Coreg 12.5mg -Perdaxa 150mg BID -ECHO 01/2019: EF 50-55%, severe -Cardiology consulted, Dr Dixon; input and recs appreciated -Consider starting Imdur to decrease afterload pending Zack rec HTN -Chronic, controlled -Home meds resumed HLD -Chronic -Home meds resumed Displaced Left Femoral shaft Fracture, s/p IM nail -f/u Dr Alvarez appt apt 02/19 -d/c ASA 325 BID SLE/RA -Chronic - Home meds resumed Hx Seizure -Last seizure 2 years ago -No longer medicated Constipation -Chronic -Continue home meds Simethicone 80mg Q8 PRN DVT Prophylaxis -Perdaxa 150mg BID <Catie Del Cid - Last Filed: 02/17/19 14:50> Results - Vital Signs Recent Vital Signs: Last Vital Signs Temp 98.1 F 02/17/19 12:00 Pulse 106 H 02/17/19 12:04 Resp 20 02/17/19 12:00 BP 153/77 H 02/17/19 12:04 Pulse Ox 99 02/17/19 12:00 - Labs Result Diagrams: 02/17/19 04:41 02/17/19 04:41 Labs: Laboratory Results - last 24 hr 02/17/19 02/17/19 02/17/19 04:41 04:41 04:41 WBC 10.0 RBC 3.76 L Hgb 11.6 L Hct 36.4 MCV 96.8 MCH 31.0 MCHC 32.0 L RDW 17.6 H Plt Count 189 MPV 9.4 Neut % (Auto) 66.3 Lymph % (Auto) 18.2 L [place] % (Auto) 13.6 H Eos % (Auto) 1.2 Baso % (Auto) 0.7 Neut # (Auto) 6.6 Lymph # (Auto) 1.8 [place] # (Auto) 1.4 H Eos # (Auto) 0.1 Baso # (Auto) 0.1 PT 11.8 INR 1.0 APTT 28.6 D-Dimer, Quantitative 2541 H Sodium 139 Potassium 4.1 Chloride 108 H Carbon Dioxide 25 Anion Gap 10 BUN 23 H Creatinine 0.6 L Est GFR ( Amer) > 60 Est GFR (Non-Af Amer) > 60 Random Glucose 94 Calcium 9.2 Troponin I < 0.0120 NT-Pro-B Natriuret Pep 3960 H 02/17/19 11:20 WBC RBC Hgb Hct MCV MCH MCHC RDW Plt Count MPV Neut % (Auto) Lymph % (Auto) [place] % (Auto) Eos % (Auto) Baso % (Auto) Neut # (Auto) Lymph # (Auto) [place] # (Auto) Eos # (Auto) Baso # (Auto) PT INR APTT D-Dimer, Quantitative Sodium Potassium Chloride Carbon Dioxide Anion Gap BUN Creatinine Est GFR ( Amer) Est GFR (Non-Af Amer) Random Glucose Calcium Troponin I < 0.0120 NT-Pro-B Natriuret Pep Attending/Attestation - Attestation I have personally seen and examined this patient.: Yes I have fully participated in the care of the patient.: Yes I have reviewed all pertinent clinical information: Yes Notes (Text): 02/17/19 14:49 This is a 78-year-old female with past medical history of hypertension, hyperlipidemia, diabetes, breast CA, seizures, admitted for new onset A. fib. She responded to Cardizem 21 found by paramedics, currently in the emergency department she is hemodynamically stable, with heart rate controlled and 100s- 105. Blood pressure 130s-150 systolic. Patient's chads vasc 2 score is greater than 2 we will start anticoagulation. Patient will be initiated on Coreg from atenolol, and Pradaxa 150 mg twice daily. We will keep her on telemetry, close monitoring for rate control. Dr. Dixon on consult for cardiology appreciated.
--- NOTE | 2019-02-17 11:35 | RAD ---
Date of service: 02/17/2019 PROCEDURE: CHEST RADIOGRAPH, 1 VIEW HISTORY: rapid afib COMPARISON: Chest radiograph dated 01/24/2019. FINDINGS: LUNGS: Clear. PLEURA: No pneumothorax or pleural fluid seen. CARDIOVASCULAR: Aortic atherosclerotic calcifications. Cardiomediastinal silhouette stably enlarged OSSEOUS STRUCTURES: Unchanged. VISUALIZED UPPER ABDOMEN: Normal. OTHER FINDINGS: None. IMPRESSION: No active disease.
--- NOTE | 2019-02-17 12:03 | CT ---
Date of service: 02/17/2019 PROCEDURE: CT Chest with contrast (Pulmonary Angiogram) HISTORY: elevated d dimer, afib, sob COMPARISON: None available. TECHNIQUE: Axial computed tomography images were obtained of the chest in the pulmonary arterial phase of enhancement. Coronal and sagittal reformatted images were created and reviewed. Intravenous contrast dose: 95 mL Visipaque 320 Radiation dose: Total exam DLP = 323.0 mGy-cm. This CT exam was performed using one or more of the following dose reduction techniques: Automated exposure control, adjustment of the mA and/or kV according to patient size, and/or use of iterative reconstruction technique. FINDINGS: PULMONARY ARTERIES: Unremarkable. No pulmonary embolism. AORTA: No acute findings. No thoracic aortic aneurysm. No aortic atherosclerotic calcification or mural plaque present. LUNGS: Unremarkable. No nodule, mass or pulmonary consolidation. PLEURAL SPACES: Unremarkable. No effusion or pneumothorax. HEART: Unremarkable. No cardiomegaly. No significant pericardial effusion. LYMPH NODES: No lymphadenopathy. BONES, CHEST WALL: Unremarkable. No fracture or destructive lesion OTHER FINDINGS: Unremarkable. IMPRESSION: Unremarkable CT pulmonary angiogram. No pulmonary embolus.
[2019-02-17] MEDS: Menthol/Methyl Salicylate Oinment TOP SCH ×3 (15:46→21:02)
--- NOTE | 2019-02-17 20:31 | CARD ---
APPROVED REPORT Date of service: 02/17/2019 EKG Measurement Heart [id number] <Conclusion> Atrial fibrillation with rapid ventricular response Abnormal ECG
[2019-02-18] MEDS: Menthol/Methyl Salicylate Oinment TOP SCH ×4 (03:12→21:44)
[2019-02-18 06:53] LABS: HEMOGLOBIN 11.1 g/dL (12.0-16.0); MEAN CELL VOLUME 97.3 fl (81.0-99.0); MEAN CORPUSCULAR HEMOGLOBIN 31.6 pg (27.0-31.0); MEAN CORPUSCULAR HGB CONC 32.5 g/dL (33.0-37.0); RBC 3.51 Mil/uL (3.80-5.20); RED CELL DISTRIBUTION WIDTH 17.7 % (11.5-14.5)
[2019-02-18 07:24] LABS: ALB/GLOB RATIO 1.1 (1.0-2.1); ALT/SGPT 38 U/L (9-52); AST/SGOT 26 U/L (14-36); BLOOD UREA NITROGEN 13 mg/dl (7-17); CALCIUM 8.9 mg/dL (8.4-10.2); GFR NON-AFRICAN AMERICAN > 60
--- NOTE | 2019-02-18 08:17 | CP.PCM.PN ---
<Tiffany Allen Rupali - Last Filed: 02/18/19 12:37> Subjective - Date & Time of Evaluation Date of Evaluation: 02/18/19 Time of Evaluation: 08:35 - Subjective Subjective: Patient seen and examined in telemetry unit this morning. Patient still in Afib, with rate 105-110s. Patient denies chest pain, tightness, SOB, N/V. Complaining of left leg pain at the surgical level(s/p reduction of femur fracture). Urinating well. Had a BM this morning. Eating without complains. No events overnight. Objective - Vital Signs/Intake and Output Vital Signs (last 24 hours): Temp Pulse Resp BP Pulse Ox 97.6 F 115 H 20 129/84 100 02/18/19 08:05 02/18/19 08:05 02/18/19 08:05 02/18/19 08:05 02/18/19 08:05 - Medications Medications: Current Medications Atorvastatin Calcium (Lipitor) 10 mg PO HS [facility] Calcium Carbonate (Oscal) 500 mg PO DAILY [facility] Last Admin: 02/17/19 12:04 Dose: 500 mg Camphor/Menthol (Bengay) 1 applic TOP Q6 [facility] Last Admin: 02/18/19 03:12 Dose: Not Given Carvedilol (Coreg) 25 mg PO Q12 [facility] Last Admin: 02/17/19 21:01 Dose: 25 mg Clonazepam (Klonopin) 1 mg PO DAILY PRN PRN Reason: Anxiety Last Admin: 02/17/19 21:02 Dose: 1 mg Dabigatran (Pradaxa) 150 mg PO Q12 [facility]; Protocol Last Admin: 02/17/19 21:02 Dose: 150 mg Duloxetine HCl (Cymbalta) 30 mg PO Q12 PRN PRN Reason: Anxiety Lidocaine (Lidoderm) 1 ea TD DAILY [facility] Multivitamins/Minerals (Therapeutic-M Tab) 1 tab PO DAILY [facility] Simethicone (Mylicon Chew Tab) 80 mg PO Q8 PRN PRN Reason: Flatulence - Labs Labs: 02/18/19 06:09 02/18/19 06:09 PT 11.8 Seconds (9.8-13.1) 02/17/19 04:41 INR 1.0 02/17/19 04:41 APTT 28.6 Seconds (25.6-37.1) 02/17/19 04:41 - Constitutional Appears: Non-toxic, No Acute Distress - Eye Exam Eye Exam: Normal appearance - ENT Exam ENT Exam: Mucous Membranes Moist - Respiratory Exam Respiratory Exam: Clear to Ausculation Bilateral, NORMAL BREATHING PATTERN. absent: Rales, Rhonchi, Wheezes, Respiratory Distress - Cardiovascular Exam Cardiovascular Exam: Irregular Rhythm, +S1, +S2 - GI/Abdominal Exam GI & Abdominal Exam: Soft, Normal Bowel Sounds. absent: Distended, Guarding, Rigid, Tenderness - Extremities Exam Extremities Exam: Normal Inspection. absent: Calf Tenderness, Pedal Edema - Back Exam Back Exam: NORMAL INSPECTION. absent: CVA tenderness (L), CVA tenderness (R) - Neurological Exam Neurological Exam: Alert, Awake, Oriented x3 - Skin Skin Exam: Dry, Intact, Normal Color Assessment and Plan - Assessment and Plan (Free Text) Assessment: 78-year-old female with PMH of HTN, HLD, SLE, Seizure, R breast Cancer and osteoporosis, presents to ED with new-onset Afib. Plan: New Onset Afib -Tachycardic - HR low 100's -TSH, free T4 WNL -CTA negative for PE -f/u troponin x 3 negative -s/p Cardizem 20 mg in field -started on Coreg 12.5 mg BID on admission, will increase from 12.5 to 25 mg BID today for better rate control -started on Pradaxa 150 mg BID on admission, c/w pradaxa for anticoagulation -if HR is still not well control ( 130s or higher) after adjustment made on coreg this morning, will give Cardizem 20 mg once, and will consider to start PO. -ECHO 01/2019: EF 50-55%, severe -Cardiology consulted, Dr Dixon; recs are appreciated -Consider starting Imdur to decrease afterload pending Zack rec HTN -Chronic, controlled -Home meds resumed HLD -Chronic -Home meds resumed Displaced Left Femoral shaft Fracture, s/p IM nail -f/u Dr Alvarez appt apt 02/19 -d/c ASA 325 BID -on Pradaxa -c/w pain control SLE/RA -Chronic - Home meds resumed Hx Seizure -Last seizure 2 years ago -No longer medicated Constipation -Chronic -Continue home meds Simethicone 80mg Q8 PRN DVT Prophylaxis -On pradaxa 150 mg BID <Catie Del Cid - Last Filed: 02/18/19 14:11> Objective - Vital Signs/Intake and Output Vital Signs (last 24 hours): Temp Pulse Resp BP Pulse Ox 97.6 F 102 H 20 109/73 100 02/18/19 11:44 02/18/19 11:44 02/18/19 11:44 02/18/19 11:44 02/18/19 11:44 - Medications Medications: Current Medications Acetaminophen (Tylenol 325mg Tab) 950 mg PO Q8 [facility] Last Admin: 02/18/19 10:31 Dose: 950 mg Atorvastatin Calcium (Lipitor) 10 mg PO HS [facility] Last Admin: 02/18/19 08:44 Dose: 10 mg Calcium Carbonate (Oscal) 500 mg PO DAILY [facility] Last Admin: 02/18/19 08:45 Dose: 500 mg Camphor/Menthol (Bengay) 1 applic TOP Q6 [facility] Last Admin: 02/18/19 10:33 Dose: 1 applic Carvedilol (Coreg) 25 mg PO Q12 [facility] Last Admin: 02/18/19 08:42 Dose: 25 mg Clonazepam (Klonopin) 1 mg PO DAILY PRN PRN Reason: Anxiety Last Admin: 02/17/19 21:02 Dose: 1 mg Dabigatran (Pradaxa) 150 mg PO Q12 [facility]; Protocol Last Admin: 02/18/19 08:45 Dose: 150 mg Digoxin (Lanoxin) 0.25 mg PO ONCE ONE Stop: 02/18/19 16:01 Duloxetine HCl (Cymbalta) 30 mg PO Q12 PRN PRN Reason: Anxiety Ketorolac Tromethamine (Toradol) 15 mg IVP Q6 PRN PRN Reason: Pain, moderate (4-7) Lidocaine (Lidoderm) 1 ea TD DAILY [facility] Last Admin: 02/18/19 08:43 Dose: Not Given Multivitamins/Minerals (Therapeutic-M Tab) 1 tab PO DAILY [facility] Last Admin: 02/18/19 08:46 Dose: 1 tab Simethicone (Mylicon Chew Tab) 80 mg PO Q8 PRN PRN Reason: Flatulence - Labs Labs: 02/18/19 06:09 02/18/19 06:09 PT 11.8 Seconds (9.8-13.1) 02/17/19 04:41 INR 1.0 02/17/19 04:41 APTT 28.6 Seconds (25.6-37.1) 02/17/19 04:41 Attending/Attestation - Attestation I have personally seen and examined this patient.: Yes I have fully participated in the care of the patient.: Yes I have reviewed all pertinent clinical information, including history, physical exam and plan: Yes Notes (Text): 02/18/19 14:10 Overnight patient maintained heart rate between 105 and 110, however this morning patient's heart rate elevated to approximately 135-145. Patient complained of some pain in right hip for which she was given high-dose Tylenol as well as Toradol. Cardiology consult appreciated digoxin started. We will continue to monitor on telemetry for better heart rate control.
[2019-02-18] MEDS: Lidocaine 5% Patch TD SCH (08:43)
[2019-02-18] MEDS: Multivitamin With Minerals Tab PO SCH (08:46)
[2019-02-18] MEDS ORDERED: Digoxin 250 mcg (0.25 mg) Tab PO ONE ×3 (12:04→21:24)
--- NOTE | 2019-02-18 12:20 | CP.PCM.CON ---
History of Present Illness - History of Present Illness History of Present Illness: THE PATIENT IS A 78 YEAR OLD FEMALE WITH A HISTORY OF AORTIC STENOSIS, HYPERTENSION, HYPERLIPIDEMIA, ANXIETY AND SHE RECENTLY HAD SURGICAL REDUCTION OF A LEFT FEMORAL FRACTURE FOLLOWING A FALL. AN ECHOCARDIOGRAM AT THAT TIME FOUND POSSIBLY SEVERE AORTIC STENOSIS WITH HEAVY CALCIFICATION OT THE AV AND A PEAK SYSTOLIC GRADIENT OF 53 MMHG. SHE DIDN'T WANT TO CONSIDER A CARDIAC CATH AT THAT TIME STATING THAT SHE WAS OVERWHELMED WITH THE FRACTURE AND SURGERY AND WANTED TO THINK OVER A CARDIAC CATH AND POSSIBLE AVR IN THE FUTURE BUT NOT AT THAT TIME. SHE WENT TO ACUTE REHAB HERE AT [facility] AND WAS DISCHARGED ON 02/15/19. SHE WAS ADMITTED YESTERDAY FOLLOWING CHEST TIGHTNESS, SOB AND HYPERTENSION WITH A BP OF ~ 160/100 AT HOME AND SHE CALLED 911 AND THE PARAMEDICS FOUND HER TO BE IN ATRIAL FIBRILLATION WITH RVR AT 150 BEATS PER MINUTE. THEY ADMINISTERED 20 MGS OF IV CARDIZEM AND HE WAS IN ATRIAL FIBRILLATION WITH A RATE IN THE LOW 100'S UPON ARRIVAL IN THE ER. SHE HAD NO FURTHER CHEST PAIN OR SOB. SHE WAS GIVEN CARVEDILOL AND HER BLOOD PRESSURE IS BETTER BUT SHE IS STILL IN ATRIAL FIBRILLATION AND I WS CALLED TO SEE HER. Past Patient History - Past Medical History & Family History Past Medical History?: Yes - Past Social History Smoking Status: Never Smoked - CARDIAC Hx Hypertension: Yes - PULMONARY Hx Sleep Apnea: Yes - NEUROLOGICAL Hx Neurological Disorder: Yes HX Cerebrovascular Accident: Yes - HEENT Hx HEENT Problems: Yes Hx Cataracts: Yes - RENAL Hx Chronic Kidney Disease: No - ENDOCRINE/METABOLIC Hx Endocrine Disorders: Yes Hx Systemic Lupus Erythematosus: Yes - HEMATOLOGICAL/ONCOLOGICAL Hx Human Immunodeficiency Virus (HIV): No - INTEGUMENTARY Hx Dermatological Problems: No - MUSCULOSKELETAL/RHEUMATOLOGICAL Hx Arthritis: Yes (rheumatoid) Hx Osteoporosis: Yes Hx Rheumatoid Arthritis: Yes (right shoulder) - GASTROINTESTINAL Hx Gastrointestinal Disorders: No - GENITOURINARY/GYNECOLOGICAL Hx Genitourinary Disorders: Yes Other/Comment: bladder surgery, breast ca w/ radiation therapy - PSYCHIATRIC Hx Psychophysiologic Disorder: No Hx Substance Use: No - SURGICAL HISTORY Hx Appendectomy: Yes - ANESTHESIA Hx Anesthesia: Yes Hx Anesthesia Reactions: No Hx Malignant Hyperthermia: No Meds Allergies/Adverse Reactions: Allergies Allergy/AdvReac Type Severity Reaction Status Date / Time milk AdvReac DIARRHEA Verified 02/17/19 05:31 - Medications Medications: Current Medications Acetaminophen (Tylenol 325mg Tab) 950 mg PO Q8 [facility] Last Admin: 02/18/19 10:31 Dose: 950 mg Atorvastatin Calcium (Lipitor) 10 mg PO HS [facility] Last Admin: 02/18/19 08:44 Dose: 10 mg Calcium Carbonate (Oscal) 500 mg PO DAILY [facility] Last Admin: 02/18/19 08:45 Dose: 500 mg Camphor/Menthol (Bengay) 1 applic TOP Q6 [facility] Last Admin: 02/18/19 10:33 Dose: 1 applic Carvedilol (Coreg) 25 mg PO Q12 [facility] Last Admin: 02/18/19 08:42 Dose: 25 mg Clonazepam (Klonopin) 1 mg PO DAILY PRN PRN Reason: Anxiety Last Admin: 02/17/19 21:02 Dose: 1 mg Dabigatran (Pradaxa) 150 mg PO Q12 [facility]; Protocol Last Admin: 02/18/19 08:45 Dose: 150 mg Digoxin (Lanoxin) 0.25 mg PO ONCE ONE Stop: 02/18/19 16:01 Duloxetine HCl (Cymbalta) 30 mg PO Q12 PRN PRN Reason: Anxiety Ketorolac Tromethamine (Toradol) 15 mg IVP Q6 PRN PRN Reason: Pain, moderate (4-7) Lidocaine (Lidoderm) 1 ea TD DAILY [facility] Last Admin: 02/18/19 08:43 Dose: Not Given Multivitamins/Minerals (Therapeutic-M Tab) 1 tab PO DAILY [facility] Last Admin: 02/18/19 08:46 Dose: 1 tab Simethicone (Mylicon Chew Tab) 80 mg PO Q8 PRN PRN Reason: Flatulence Physical Exam - Respiratory Exam Respiratory Exam: Clear to Auscultation Bilateral - Cardiovascular Exam Cardiovascular Exam: Tachycardia, Irregular Rhythm, +S1, +S2, Systolic Murmur - Extremities Exam Additional comments: NO LE EDEMA - Additional Findings Additional findings: EKG ATRIAL FIBRILLATION WITH RATE OF 105 BPM TROPONIN NORMAL X 3 K+ 4.1 TSH IS NORMAL ECHO LAST MONTH WITH GOOD LV SYS FUNCTION WITH A LVEF OF ~ 50-55%, PROBABLE SEVERE Results - Vital Signs Recent Vital Signs: Last Vital Signs Temp 97.6 F 02/18/19 11:44 Pulse 102 H 02/18/19 11:44 Resp 20 02/18/19 11:44 BP 109/73 02/18/19 11:44 Pulse Ox 100 02/18/19 11:44 - Labs Result Diagrams: 02/18/19 06:09 02/18/19 06:09 Labs: Laboratory Results - last 24 hr 02/17/19 02/17/19 02/18/19 11:20 16:39 06:09 WBC 8.0 RBC 3.51 L Hgb 11.1 L Hct 34.2 MCV 97.3 MCH 31.6 H MCHC 32.5 L RDW 17.7 H Plt Count 158 Sodium Potassium Chloride Carbon Dioxide Anion Gap BUN Creatinine Est GFR ( Amer) Est GFR (Non-Af Amer) Random Glucose Calcium Phosphorus Magnesium Total Bilirubin AST ALT Alkaline Phosphatase Troponin I < 0.0120 < 0.0120 Total Protein Albumin Globulin Albumin/Globulin Ratio Free T4 TSH 3rd Generation 02/18/19 02/18/19 02/18/19 06:09 08:44 08:44 WBC RBC Hgb Hct MCV MCH MCHC RDW Plt Count Sodium 141 Potassium 3.9 Chloride 108 H Carbon Dioxide 27 Anion Gap 10 BUN 13 Creatinine 0.5 L Est GFR ( Amer) > 60 Est GFR (Non-Af Amer) > 60 Random Glucose 96 Calcium 8.9 Phosphorus 4.0 Magnesium 1.8 Total Bilirubin 0.5 AST 26 ALT 38 Alkaline Phosphatase 140 H D Troponin I Total Protein 5.5 L Albumin 3.0 L Globulin 2.6 Albumin/Globulin Ratio 1.1 Free T4 1.76 TSH 3rd Generation 1.57 Assessment & Plan - Assessment and Plan (Free Text) Assessment: [place] ATRIAL FIBRILLATION AORTIC STENOSIS HYPERTENSION HYPERLIPIDEMIA RECENT SURGICAL REPAIR OF LEFT FEMUR FRACTURE Plan: THE PATIENT WAS ADMITTED TO 4N ON TELEMETRY CONTINUE O2, CARVEDILOL, PRADAXA AND ATORVASTATIN WILL DIGITALIZE TO TRY TO CONVERT BACK TO SINUS RHYTHM I SPOKE TO THE PATIENT AND HER SON CONCERNING THE SEVERE BUT THE PATIENT AGAIN DOESN'T WANT TO CONSIDER A CARDIAC CATH FOR POSSIBLE AVR AT THIS TIME AND JUST WANTS TO COMPLETE HER RECOVERY FROM THE FEMUR FRACTURE FOR THE TIME BEING DR LIRA WAS CALLED TO SEE HER SHE HAD AN APPT SCHEDULED TO SEE HIM TOMORROW PHSICAL THERAPY ASKED TO SEE HER
[2019-02-19] MEDS: Menthol/Methyl Salicylate Oinment TOP SCH ×3 (04:06→16:54)
--- NOTE | 2019-02-19 08:59 | CP.PCM.CON ---
History of Present Illness - History of Present Illness History of Present Illness: Ortho f/u Dr. Alvarez 78[address] to [address] Alvarez 3 weeks s/p left femoral shaft ORIF with long trochanteric IM nail. Patient readmitted for afib. Patient has been tolerating PT well, WBAT on LLE. SHe had appt with Dr. Alvarez for f/u tomorrow. No new complaints of leg pain. Review of Systems - Review of Systems All systems: reviewed and no additional remarkable complaints except - Musculoskeletal Musculoskeletal: As Per HPI - Neurological Additional comments: denies numbness/tingling. Past Patient History - Past Medical History & Family History Past Medical History?: Yes Past Family History: Reviewed and not pertinent - Past Social History Smoking Status: Never Smoked - CARDIAC Hx Hypertension: Yes - PULMONARY Hx Sleep Apnea: Yes - NEUROLOGICAL Hx Neurological Disorder: Yes HX Cerebrovascular Accident: Yes - HEENT Hx HEENT Problems: Yes Hx Cataracts: Yes - RENAL Hx Chronic Kidney Disease: No - ENDOCRINE/METABOLIC Hx Endocrine Disorders: Yes Hx Systemic Lupus Erythematosus: Yes - HEMATOLOGICAL/ONCOLOGICAL Hx Human Immunodeficiency Virus (HIV): No - INTEGUMENTARY Hx Dermatological Problems: No - MUSCULOSKELETAL/RHEUMATOLOGICAL Hx Arthritis: Yes (rheumatoid) Hx Osteoporosis: Yes Hx Rheumatoid Arthritis: Yes (right shoulder) - GASTROINTESTINAL Hx Gastrointestinal Disorders: No - GENITOURINARY/GYNECOLOGICAL Hx Genitourinary Disorders: Yes Other/Comment: bladder surgery, breast ca w/ radiation therapy - PSYCHIATRIC Hx Psychophysiologic Disorder: No Hx Substance Use: No - SURGICAL HISTORY Hx Appendectomy: Yes Hx Open Reduction Internal Fixation: Yes (01/25/2019 Left femur ORIF) - ANESTHESIA Hx Anesthesia: Yes Hx Anesthesia Reactions: No Hx Malignant Hyperthermia: No Meds Allergies/Adverse Reactions: Allergies Allergy/AdvReac Type Severity Reaction Status Date / Time milk AdvReac DIARRHEA Verified 02/17/19 05:31 - Medications Medications: Current Medications Acetaminophen (Tylenol 325mg Tab) 975 mg PO Q8 [facility] Last Admin: 02/19/19 00:59 Dose: Not Given Atorvastatin Calcium (Lipitor) 10 mg PO HS [facility] Last Admin: 02/18/19 21:47 Dose: 10 mg Calcium Carbonate (Oscal) 500 mg PO DAILY [facility] Last Admin: 02/18/19 08:45 Dose: 500 mg Camphor/Menthol (Bengay) 1 applic TOP Q6 [facility] Last Admin: 02/19/19 04:06 Dose: Not Given Carvedilol (Coreg) 25 mg PO Q12 [place] Last Admin: 02/18/19 20:12 Dose: 25 mg Clonazepam (Klonopin) 1 mg PO DAILY PRN PRN Reason: Anxiety Last Admin: 02/17/19 21:02 Dose: 1 mg Dabigatran (Pradaxa) 150 mg PO Q12 [place]; Protocol Last Admin: 02/18/19 20:11 Dose: 150 mg Duloxetine HCl (Cymbalta) 30 mg PO Q12 PRN PRN Reason: Anxiety Ketorolac Tromethamine (Toradol) 15 mg IVP Q6 PRN PRN Reason: Pain, moderate (4-7) Lidocaine (Lidoderm) 1 ea TD DAILY [facility] Last Admin: 02/18/19 08:43 Dose: Not Given Multivitamins/Minerals (Therapeutic-M Tab) 1 tab PO DAILY [facility] Last Admin: 02/18/19 08:46 Dose: 1 tab Simethicone (Mylicon Chew Tab) 80 mg PO Q8 PRN PRN Reason: Flatulence Physical Exam - Constitutional Appears: Well, No Acute Distress - Expanded Lower Extremities Exam Left Lower Leg Exam: ecchymosis (noted bruises to leg and posterior medial thigh, +DP/PT pulses, calves soft NT neg homans, incisions well healed, jostin out, no erythema, dry) Ankle exam: FULL ROM, NORMAL INSPECTION Results - Vital Signs Recent Vital Signs: Last Vital Signs Temp 98.4 F 02/19/19 08:51 Pulse 79 02/19/19 08:51 Resp 20 02/19/19 08:51 BP 156/67 H 02/19/19 08:51 Pulse Ox 100 02/19/19 08:51 - Labs Result Diagrams: 02/18/19 06:09 02/18/19 06:09 Labs: Laboratory Results - last 24 hr 02/18/19 02/18/19 02/19/19 08:44 08:44 05:30 NT-Pro-B Natriuret Pep 918 H Free T4 1.76 TSH 3rd Generation 1.57 Digoxin 02/19/19 06:07 NT-Pro-B Natriuret Pep Free T4 TSH 3rd Generation Digoxin 1.0 Assessment & Plan (1) Left femoral shaft fracture Assessment and Plan: 3 weeks s/p ORIF long IM nail 01/25/[address] chest neg for PE PT/OT WBAT LLE will follow up imaging d/w Dr. Alvarez, agrees with above Status: Acute
[2019-02-19] MEDS: Multivitamin With Minerals Tab PO SCH (09:12)
[2019-02-19] MEDS: Lidocaine 5% Patch TD SCH (09:17)
--- NOTE | 2019-02-19 09:20 | CARD ---
APPROVED REPORT Date of service: 02/19/2019 EKG Measurement Heart [id number] <Conclusion> Sinus rhythm with occasional premature ventricular complexes Otherwise normal ECG
--- NOTE | 2019-02-19 09:33 | CP.PCM.DIS ---
<Erendira Cortes - Last Filed: 02/19/19 13:55> Provider - Provider Date of Admission: 02/17/19 07:59 Attending physician: Alana Valladares MD Consults: 02/17/19 12:48 Cardiology Consult Routine Comment: Consulting Provider: Liborio Dixon Consulting Physician: Liborio Dixon Reason for Consult: new onset a fib 02/18/19 11:39 Orthopedic Consult Routine Comment: Follow up from her surgery Consulting Provider: Warren Alvarez Consulting Physician: Warren Alvarez Reason for Consult: Follow up from her hip surgery Time Spent in preparation of Discharge (in minutes): 20 Diagnosis - Discharge Diagnosis (1) Atrial fibrillation Status: Acute Hospital Course - Lab Results Lab Results: Most Recent Lab Values WBC 8.0 K/uL (4.8-10.8) 02/18/19 06:09 RBC 3.51 Mil/uL (3.80-5.20) L 02/18/19 06:09 Hgb 11.1 g/dL (12.0-16.0) L 02/18/19 06:09 Hct 34.2 % (34.0-47.0) 02/18/19 06:09 MCV 97.3 fl (81.0-99.0) 02/18/19 06:09 MCH 31.6 pg (27.0-31.0) H 02/18/19 06:09 MCHC 32.5 g/dL (33.0-37.0) L 02/18/19 06:09 RDW 17.7 % (11.5-14.5) H 02/18/19 06:09 Plt Count 158 K/uL (130-400) 02/18/19 06:09 MPV 9.4 fl (7.2-11.7) 02/17/19 04:41 Neut % (Auto) 66.3 % (50.0-75.0) 02/17/19 04:41 Lymph % (Auto) 18.2 % (20.0-40.0) L 02/17/19 04:41 [place] % (Auto) 13.6 % (0.0-10.0) H 02/17/19 04:41 Eos % (Auto) 1.2 % (0.0-4.0) 02/17/19 04:41 Baso % (Auto) 0.7 % (0.0-2.0) 02/17/19 04:41 Neut # (Auto) 6.6 K/uL (1.8-7.0) 02/17/19 04:41 Lymph # (Auto) 1.8 K/uL (1.0-4.3) 02/17/19 04:41 [place] # (Auto) 1.4 K/uL (0.0-0.8) H 02/17/19 04:41 Eos # (Auto) 0.1 K/uL (0.0-0.7) 02/17/19 04:41 Baso # (Auto) 0.1 K/uL (0.0-0.2) 02/17/19 04:41 PT 11.8 Seconds (9.8-13.1) 02/17/19 04:41 INR 1.0 02/17/19 04:41 APTT 28.6 Seconds (25.6-37.1) 02/17/19 04:41 D-Dimer, Quantitative 2541 ng/mlDDU (0-230) H 02/17/19 04:41 Sodium 141 mmol/l (132-148) 02/18/19 06:09 Potassium 3.9 MMOL/L (3.6-5.0) 02/18/19 06:09 Chloride 108 mmol/L (98-107) H 02/18/19 06:09 Carbon Dioxide 27 mmol/L (22-30) 02/18/19 06:09 Anion Gap 10 (10-20) 02/18/19 06:09 BUN 13 mg/dl (7-17) 02/18/19 06:09 Creatinine 0.5 mg/dl (0.7-1.2) L 02/18/19 06:09 Est GFR ( Amer) > 60 02/18/19 06:09 Est GFR (Non-Af Amer) > 60 02/18/19 06:09 Random Glucose 96 mg/dL (65-105) 02/18/19 06:09 Calcium 8.9 mg/dL (8.4-10.2) 02/18/19 06:09 Phosphorus 4.0 mg/dl (2.5-4.5) 02/18/19 06:09 Magnesium 1.8 MG/DL (1.6-2.3) 02/18/19 06:09 Total Bilirubin 0.5 mg/dl (0.2-1.3) 02/18/19 06:09 AST 26 U/L (14-36) 02/18/19 06:09 ALT 38 U/L (9-52) 02/18/19 06:09 Alkaline Phosphatase 140 U/L (38-126) H D 02/18/19 06:09 Troponin I < 0.0120 ng/mL (0.00-0.120) 02/17/19 16:39 NT-Pro-B Natriuret Pep 918 pg/ml (0-900) H 02/19/19 05:30 Total Protein 5.5 G/DL (6.3-8.2) L 02/18/19 06:09 Albumin 3.0 g/dL (3.5-5.0) L 02/18/19 06:09 Globulin 2.6 gm/dL (2.2-3.9) 02/18/19 06:09 Albumin/Globulin Ratio 1.1 (1.0-2.1) 02/18/19 06:09 Free T4 1.76 ng/dL (0.78-2.19) 02/18/19 08:44 TSH 3rd Generation 1.57 mIU/ML (0.46-4.68) 02/18/19 08:44 Digoxin 1.0 ng/mL (0.8-2.0) 02/19/19 06:07 - Hospital Course Hospital Course: 78-year-old female with PMH of HTN, HLD, SLE, Seizure, R breast Cancer and osteoporosis, presents to ED with new-onset Afib. She was experiencing CP and SOB at home, paramedics found her to be in rapid afib and administered cardizem 20 mg. When she arrived to ED she was asymptomatic but continued to be in Afib with tachycardia in low 100's, otherwise vitally stable. Recently was d/c from [facility] s/p reduction of femur fracture. She was started on Coreg for rate control and anti-coagulation with pardaxa. Dr Dixon consulted, agreed with medical management and began digoxin, which ultimately converted the patient back into NSR. Clinically stable and medically cleared for discharge to home. Follow up with [facility] on 02/22 at 1pm. Discharge Exam - Head Exam Head Exam: ATRAUMATIC, NORMOCEPHALIC - Eye Exam Eye Exam: Normal appearance - ENT Exam ENT Exam: Mucous Membranes Moist - Respiratory Exam Respiratory Exam: Clear to PA & Lateral, NORMAL BREATHING PATTERN, UNREMARKABLE. absent: Respiratory Distress - Cardiovascular Exam Cardiovascular Exam: REGULAR RHYTHM - GI/Abdominal Exam GI & Abdominal Exam: Normal Bowel Sounds, Soft. absent: Tenderness - Extremities Exam Additional comments: 3 weeks s/p ORIF long IM nail 01/25/[address] Alvarez - Neurological Exam Neurological exam: Alert, Oriented x3 Additional comments: uses walker (at home) - Psychiatric Exam Psychiatric exam: Normal Affect, Normal Mood - Skin Skin Exam: Dry, Intact, Normal Color, Warm Discharge Plan - Discharge Medications Prescriptions: Atenolol 50 mg PO DAILY 30 Days tablet Atorvastatin [Lipitor] 10 mg PO DAILY #30 tab Calcium Carbonate 600 mg PO DAILY #30 tablet Dabigatran [Pradaxa] 150 mg PO Q12 #60 cap Digoxin 0.125 mg PO DAILY 14 Days tab DULoxetine [Cymbalta] 30 mg PO Q12 PRN #30 ecc PRN Reason: Anxiety Multimineral/Multivitamin [Therapeutic-M Tab] 1 tab PO DAILY #30 tab Simethicone [Mylicon Chew Tab] 80 mg PO Q8 PRN #30 chew PRN Reason: Flatulence - Follow Up Plan Condition: FAIR Disposition: HOME/ ROUTINE Instructions: Atrial Fibrillation (DC), Chest Pain (DC) Additional Instructions: Follow up [facility] on 02/[address] Cortes/Dr Corby beck visitng nurse [phone] [facility] visiting nurse [phone] Referrals: [facility] [Provider Group] Liborio Dixon MD [Staff Provider] - <Catie Del Cid - Last Filed: 02/20/19 07:33> Provider - Provider Date of Admission: 02/17/19 07:59 Attending physician: Alana Valladares MD Consults: 02/17/19 12:48 Cardiology Consult Routine Comment: Consulting Provider: Liborio Dixon Consulting Physician: Liborio Dixon Reason for Consult: new onset a fib 02/18/19 11:39 Orthopedic Consult Routine Comment: Follow up from her surgery Consulting Provider: Warren Alvarez Consulting Physician: Warren Alvarez Reason for Consult: Follow up from her hip surgery Hospital Course - Lab Results Lab Results: Most Recent Lab Values WBC 8.0 K/uL (4.8-10.8) 02/18/19 06:09 RBC 3.51 Mil/uL (3.80-5.20) L 02/18/19 06:09 Hgb 11.1 g/dL (12.0-16.0) L 02/18/19 06:09 Hct 34.2 % (34.0-47.0) 02/18/19 06:09 MCV 97.3 fl (81.0-99.0) 02/18/19 06:09 MCH 31.6 pg (27.0-31.0) H 02/18/19 06:09 MCHC 32.5 g/dL (33.0-37.0) L 02/18/19 06:09 RDW 17.7 % (11.5-14.5) H 02/18/19 06:09 Plt Count 158 K/uL (130-400) 02/18/19 06:09 MPV 9.4 fl (7.2-11.7) 02/17/19 04:41 Neut % (Auto) 66.3 % (50.0-75.0) 02/17/19 04:41 Lymph % (Auto) 18.2 % (20.0-40.0) L 02/17/19 04:41 [place] % (Auto) 13.6 % (0.0-10.0) H 02/17/19 04:41 Eos % (Auto) 1.2 % (0.0-4.0) 02/17/19 04:41 Baso % (Auto) 0.7 % (0.0-2.0) 02/17/19 04:41 Neut # (Auto) 6.6 K/uL (1.8-7.0) 02/17/19 04:41 Lymph # (Auto) 1.8 K/uL (1.0-4.3) 02/17/19 04:41 [place] # (Auto) 1.4 K/uL (0.0-0.8) H 02/17/19 04:41 Eos # (Auto) 0.1 K/uL (0.0-0.7) 02/17/19 04:41 Baso # (Auto) 0.1 K/uL (0.0-0.2) 02/17/19 04:41 PT 11.8 Seconds (9.8-13.1) 02/17/19 04:41 INR 1.0 02/17/19 04:41 APTT 28.6 Seconds (25.6-37.1) 02/17/19 04:41 D-Dimer, Quantitative 2541 ng/mlDDU (0-230) H 02/17/19 04:41 Sodium 141 mmol/l (132-148) 02/18/19 06:09 Potassium 3.9 MMOL/L (3.6-5.0) 02/18/19 06:09 Chloride 108 mmol/L (98-107) H 02/18/19 06:09 Carbon Dioxide 27 mmol/L (22-30) 02/18/19 06:09 Anion Gap 10 (10-20) 02/18/19 06:09 BUN 13 mg/dl (7-17) 02/18/19 06:09 Creatinine 0.5 mg/dl (0.7-1.2) L 02/18/19 06:09 Est GFR ( Amer) > 60 02/18/19 06:09 Est GFR (Non-Af Amer) > 60 02/18/19 06:09 Random Glucose 96 mg/dL (65-105) 02/18/19 06:09 Calcium 8.9 mg/dL (8.4-10.2) 02/18/19 06:09 Phosphorus 4.0 mg/dl (2.5-4.5) 02/18/19 06:09 Magnesium 1.8 MG/DL (1.6-2.3) 02/18/19 06:09 Total Bilirubin 0.5 mg/dl (0.2-1.3) 02/18/19 06:09 AST 26 U/L (14-36) 02/18/19 06:09 ALT 38 U/L (9-52) 02/18/19 06:09 Alkaline Phosphatase 140 U/L (38-126) H D 02/18/19 06:09 Troponin I < 0.0120 ng/mL (0.00-0.120) 02/17/19 16:39 NT-Pro-B Natriuret Pep 918 pg/ml (0-900) H 02/19/19 05:30 Total Protein 5.5 G/DL (6.3-8.2) L 02/18/19 06:09 Albumin 3.0 g/dL (3.5-5.0) L 02/18/19 06:09 Globulin 2.6 gm/dL (2.2-3.9) 02/18/19 06:09 Albumin/Globulin Ratio 1.1 (1.0-2.1) 02/18/19 06:09 25-OH Vitamin D Total 24.5 NG/ML (30.0-100.0) L 02/19/19 09:07 Free T4 1.76 ng/dL (0.78-2.19) 02/18/19 08:44 TSH 3rd Generation 1.57 mIU/ML (0.46-4.68) 02/18/19 08:44 Digoxin 1.0 ng/mL (0.8-2.0) 02/19/19 06:07 Attending/Attestation - Attestation I have personally seen and examined this patient.: Yes I have fully participated in the care of the patient.: Yes I have reviewed all pertinent clinical information, including history, physical exam and plan: Yes Notes (Text): 02/20/19 07:32 8-year-old female admitted for uncontrolled atrial fibrillation. She was initiated on Pradaxa, digoxin, and was continued on her atenolol. Dr. Dixon consult appreciated. Agree with findings and plan as above. Patient to follow-up closely with Dr. Dixon at his PCP as an outpatient 3-5 days.
--- NOTE | 2019-02-19 10:09 | CP.PCM.PN ---
Subjective - Date & Time of Evaluation Date of Evaluation: 02/19/19 Time of Evaluation: 09:15 - Subjective Subjective: NO CHEST PAIN, SOB OR PALPITATIONS Objective - Vital Signs/Intake and Output Vital Signs (last 24 hours): Temp Pulse Resp BP Pulse Ox 98.4 F 79 20 156/67 H 100 02/19/19 08:51 02/19/19 09:11 02/19/19 08:51 02/19/19 09:11 02/19/19 08:51 - Medications Medications: Current Medications Acetaminophen (Tylenol 325mg Tab) 975 mg PO Q8 [facility] Last Admin: 02/19/19 09:15 Dose: 975 mg Atorvastatin Calcium (Lipitor) 10 mg PO HS [facility] Last Admin: 02/18/19 21:47 Dose: 10 mg Calcium Carbonate (Oscal) 500 mg PO DAILY [facility] Last Admin: 02/19/19 09:13 Dose: 500 mg Camphor/Menthol (Bengay) 1 applic TOP Q6 [facility] Last Admin: 02/19/19 09:10 Dose: 1 applic Carvedilol (Coreg) 25 mg PO Q12 [facility] Last Admin: 02/19/19 09:11 Dose: 25 mg Clonazepam (Klonopin) 1 mg PO DAILY PRN PRN Reason: Anxiety Last Admin: 02/17/19 21:02 Dose: 1 mg Dabigatran (Pradaxa) 150 mg PO Q12 [facility]; Protocol Last Admin: 02/19/19 09:12 Dose: 150 mg Duloxetine HCl (Cymbalta) 30 mg PO Q12 PRN PRN Reason: Anxiety Ketorolac Tromethamine (Toradol) 15 mg IVP Q6 PRN PRN Reason: Pain, moderate (4-7) Lidocaine (Lidoderm) 1 ea TD DAILY [facility] Last Admin: 02/19/19 09:17 Dose: Not Given Multivitamins/Minerals (Therapeutic-M Tab) 1 tab PO DAILY [facility] Last Admin: 02/19/19 09:12 Dose: 1 tab Simethicone (Mylicon Chew Tab) 80 mg PO Q8 PRN PRN Reason: Flatulence - Labs Labs: 02/18/19 06:09 02/18/19 06:09 PT 11.8 Seconds (9.8-13.1) 02/17/19 04:41 INR 1.0 02/17/19 04:41 APTT 28.6 Seconds (25.6-37.1) 02/17/19 04:41 - Respiratory Exam Respiratory Exam: Clear to Ausculation Bilateral - Cardiovascular Exam Cardiovascular Exam: REGULAR RHYTHM, +S1, +S2, Murmur - Extremities Exam Additional comments: NO LE EDEMA - Additional Findings Additional findings: 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 THIS AM NSR THE PATIENT CONVERTED TO SINUS RHYTHM YESTERDAY ABOUT 2 HRS AFTER HER FIRST DIGOXIN DOSE OF 0.5 MGS SHE GOT 2 MORE DOSES OF O.25 MGS LATER IN THE DAY YESTERDAY DIGOXIN LEVEL 1.0 THIS AM Assessment and Plan - Assessment and Plan (Free Text) Assessment: NEW ONSET ATRIAL FIBRILLATION WITH MEDICAL CV BACK TO SINUS RHYTHM AORTIC STENOSIS HYPERTENSION HYPERLIPIDEMIA Plan: DIGOXIN 0.25 MGS PO TODAY DIGOXIN 0.125 MGS DAILY OF TOMORROW OK TO DISCHARGE THE PATIENT AND I WILL SEE IN MY OFFICE IN ABOUT 2 WEEKS TO REPEAT AN EKG CONTINUE PRADAXA, ATORVASTATIN AND ATENOLOL OUT PATIENT PATIENT DISCUSSED WITH HOSPITALIST AND NURSE
[2019-02-19] MEDS ORDERED: Digoxin 250 mcg (0.25 mg) Tab PO ONE (10:14)
[2019-02-19 11:53] VITALS: PULSE 84
[2019-02-19 16:05] VITALS: BP 129/79; PULSE 85; RESP 18; TEMP 98.2; O2SAT 100
--- NOTE | 2019-02-19 16:52 | RAD ---
PROCEDURE: Left Hip with Pelvis radiographs. HISTORY: s/p ORIF left femur COMPARISON: None. TECHNIQUE: 3 views obtained. FINDINGS: BONES: No acute fracture dislocation involving the left hip joint. Mineralization is stable with degenerative changes again evident at the left hip joint. No dislocation identified. Incidental note is made of prior ORIF proximal left femur for mid-diaphyseal spiral fracture. Degenerative changes are advanced at the bilateral hip joints and moderate the bilateral sacroiliac joints. Pelvic ring remains intact. Pubic symphysis is unremarkable and sacrum is grossly intact. Gross degenerative facet arthropathy seen the inferior lumbar sacral spine. JOINTS: As per above. SOFT TISSUES: Normal. OTHER FINDINGS: None. IMPRESSION: Status post ORIF proximal left femur reducing previously demonstrated spiral fracture left femur. Please see separate left knee radiographs report. Degenerative changes at the left hip joint with bilateral hip and sacroiliac joint degenerative changes stable. No fracture of the pelvic ring in the interval.
--- NOTE | 2019-02-19 16:54 | RAD ---
Date of service: 02/19/2019 PROCEDURE: Left Femur Radiographs HISTORY: post op follow up femoral shaft fx COMPARISON: Left knee radiographs 01/24/2019. TECHNIQUE: Four views submitted. FINDINGS: Proximal diaphyseal left femoral for spiral fracture is now reduced by a lengthy intramedullary nail with 2 distal interlocking screws transfixing the nail and a solitary member transfixing it at the intertrochanteric space. No new interval fracture identified. Limited comminuted fracture fragments are minimal in size near the fracture site with adequate reduction achieved at this time. No definite callus formation identified. IMPRESSION: Status ORIF for proximal diaphyseal left femoral spiral fracture with hardware as described above. No new fracture appreciated.
== END 2019-02-19 20:00 | disposition home health service (06) | DRG 310 ==
LOC: H.ER 04:10 → H.ERHOLD 07:59 → H.TEL 10:11 → UNDODISIN 02-19 17:00
PROVIDERS: ADMIT Hospitalist; ATTEND Hospitalist
DX: I48.91 Unspecified atrial fibrillation (principal); I35.0 Nonrheumatic aortic (valve) stenosis; S72.392D Other fracture of shaft of left femur, subsequent encounter for closed fracture with routine healing; I10 Essential (primary) hypertension; M06.9 Rheumatoid arthritis, unspecified; M19.011 Primary osteoarthritis, right shoulder; M81.0 Age-related osteoporosis without current pathological fracture; M32.9 Systemic lupus erythematosus, unspecified; E78.5 Hyperlipidemia, unspecified; E78.00 Pure hypercholesterolemia, unspecified; G47.30 Sleep apnea, unspecified; F41.9 Anxiety disorder, unspecified; R56.9 Unspecified convulsions; Z85.3 Personal history of malignant neoplasm of breast; Z86.73 Personal history of transient ischemic attack (TIA), and cerebral infarction without residual deficits; Z79.82 Long term (current) use of aspirin; Z91.011 Allergy to milk products; X58.XXXD Exposure to other specified factors, subsequent encounter

== ENCOUNTER 2019-03-09 10:06 | Emergency (ER) | payer MEDICARE, MEDICAID ==
[2019-03-09 10:07] VITALS: PULSE 84
[2019-03-09 10:12] VITALS: BMI 30.1
--- NOTE | 2019-03-09 10:35 | ED PDOC ---
Lower Extremity Pain/Injury Time Seen by Provider: 03/09/19 10:18 Chief Complaint (Nursing): Lower Extremity Problem/Injury History Per: Patient Onset/Duration Of Symptoms: Hrs Current Symptoms Are (Timing): Still Present Severity: Moderate Additional Complaint(s): S/p ORIF left femoral fracture in January. Has been doing PT and ambulating with walker. After PT yesterday, developed pain left femur. No trauma or fall. Denies leg swelling. Denies chest pain or SOB. Past Medical History Vital Signs: Last Vital Signs Temp 98.1 F 03/09/19 10:11 Pulse 88 03/09/19 10:11 Resp 16 03/09/19 10:11 BP 145/80 03/09/19 10:11 Pulse Ox 97 03/09/19 10:11 Primary Care Provider: George Tavarez - Medical History PMH: Arthritis (rheumatoid), HTN, Osteoporosis, Rheumatoid Arthritis (right shoulder), Sleep Apnea Denies: HIV, Chronic Kidney Disease - Surgical History Surgical History: Appendectomy, Cholecystectomy Other surgeries: s/p ORIF left femur - Family History Family History: States: Unknown Family Hx - Home Medications Home Medications: Ambulatory Orders Medication Instructions Recorded Turmeric Root Extract [Turmeric] 500 mg PO DAILY 01/24/19 Menthol/Methyl Salicylate [BenGay] 1 applic TOP Q6 #1 tube 02/15/19 Clonazepam [Klonopin] 1 mg PO PRN PRN 02/17/19 Atenolol 50 mg PO DAILY 30 Days tablet 02/19/19 Atorvastatin [Lipitor] 10 mg PO DAILY #30 tab 02/19/19 Calcium Carbonate 600 mg PO DAILY #30 tablet 02/19/19 DULoxetine [Cymbalta] 30 mg PO Q12 PRN #30 ecc 02/19/19 Dabigatran [Pradaxa] 150 mg PO Q12 #60 cap 02/19/19 Digoxin 0.125 mg PO DAILY 14 Days tab 02/19/19 Multimineral/Multivitamin 1 tab PO DAILY #30 tab 02/19/19 [Therapeutic-M Tab] Simethicone [Mylicon Chew Tab] 80 mg PO Q8 PRN #30 chew 02/19/19 traMADol [Ultram] 50 mg PO Q8 #10 tab 03/09/19 - Allergies Allergies/Adverse Reactions: Allergies Allergy/AdvReac Type Severity Reaction Status Date / Time milk AdvReac DIARRHEA Verified 03/09/19 10:18 Review of Systems Cardiovascular: Negative for: Chest Pain Respiratory: Negative for: Shortness of Breath Musculoskeletal: Positive for: Leg Pain Physical Exam - Physical Exam Appears: Positive for: Non-toxic, No Acute Distress Extremity: Positive for: Other (Left thigh, operative site clean and dry. No erythema or drainage. No swelling or deformity. No calf or post thigh tenderness or erythema.) - ECG O2 Sat by Pulse Oximetry: 97 Medical Decision Making Medical Decision Making: Will obtain xray to determine if hardware in place. Will also obtain dupplex left lower ext to r/o DVT although doubtful. Xrays reviewed by Dr. Alvarez. No acute abnormalities noted. Can be followed as outpt. Disposition - Clinical Impression Clinical Impression: Left femoral shaft fracture - Patient ED Disposition Is Patient to be Admitted: No Counseled Patient/Family Regarding: Studies Performed, Diagnosis, Need For Followup, Rx Given - Disposition Referrals: Warren Alvarez MD [Staff Provider] - Disposition: Routine/Home Disposition Time: 13:17 Condition: FAIR Prescriptions: traMADol [Ultram] 50 mg PO Q8 #10 tab Instructions: Femur Fracture Forms: [employer] (Paraguayan)
--- NOTE | 2019-03-09 13:27 | RAD ---
Date of service: 03/09/2019 PROCEDURE: Left femur. HISTORY: post op pain COMPARISON: 02/19/2019 TECHNIQUE: Standard protocol for this study/examination. Two views. FINDINGS: Stable appearance of intramedullary liss and supporting orthopedic hardware. No evidence of hardware failure. Stability of major fracture fragments proximal femoral fracture. IMPRESSION: Stable findings. No acute abnormalities or interval changes.
--- NOTE | 2019-03-09 13:31 | US ---
Date of service: 03/09/2019 HISTORY: leg pain, s/p ORIF femoral fracture. PRIORS: None. FINDINGS: 2-D, color and duplex Doppler analysis of the lower extremity venous circulation using routine protocol from the femoral veins through the popliteal veins. Venous compressibility: Normal. Flow and augmentation patterns: Normal. Visualized veins upper third of calf: Normal. Hsieh cyst: None. IMPRESSION: No sonographic or Doppler evidence for DVT in left lower extremity.
[2019-03-09 14:15] VITALS: BP 128/70; PULSE 77; RESP 18; TEMP 97.9; O2SAT 100
== END 2019-03-09 14:12 | disposition home or self-care (01) ==
LOC: H.ER 10:06
DX: M06.9 Rheumatoid arthritis, unspecified (principal); M81.0 Age-related osteoporosis without current pathological fracture; I10 Essential (primary) hypertension; Z79.01 Long term (current) use of anticoagulants; G89.18 Other acute postprocedural pain